=== PATIENT | female | born 1945 | race Caucasian/White ===

== ENCOUNTER 2017-07-09 15:00 | Observation (INO) | payer MEDICARE, SELFPAY ==
[2017-07-09 15:02] VITALS: BP 123/86; BP 135/80; PULSE 84; PULSE 85; RESP 16; RESP 18; TEMP 36.8; O2SAT 95; O2SAT 96; BMI 43.8
--- NOTE | 2017-07-09 15:15 | RAD_ITS ---
STUDY: X-RAY CHEST REASON FOR EXAM: Female, 72 years old. Fatigue. Generalized weakness. TECHNIQUE: Single AP portable view of the chest. COMPARISON: Comparison is made with prior study dated April 30, 2017. FINDINGS: EKG electrodes are seen. Elevation of the right hemidiaphragm. Stable mild increased markings at the right lung base suggestive of scarring. There is no demonstrated pleural abnormality. Normal size heart. Normal mediastinum and estephania. Normal visualized pulmonary arteries. Normal visualized aortic arch and descending thoracic aorta. There are degenerative changes of the visualized thoracic spine. Normal visualized ribs, clavicles, and shoulders. There is no demonstrated abnormality of the visualized soft tissue structures of the upper abdomen. RAD/Chest 1 View (Portable) IMPRESSION: No acute abnormality is seen. Electronically Signed: Huang Lyons MD at 15:37 EST Tel [phone], Service support ,
--- NOTE | 2017-07-09 15:15 | EKG12_ITS ---
Test Reason : FATIGUE Blood Pressure : / mmHG Vent. Rate : 085 BPM Atrial Rate : 085 BPM P-R Int : 194 ms QRS Dur : 068 ms QT Int : 384 ms P-R-T Axes : 081 -06 075 degrees QTc Int : 456 ms Normal sinus rhythm Nonspecific ST abnormality Abnormal ECG Confirmed by JANEEN ELISE ([id number]), utility assembler RA ORELLANA ([id number]) on 07/12/2017 4:43:34 PM Referred By: GORGE Confirmed By:JANEEN ELISE
--- NOTE | 2017-07-09 15:23 | ED.VISSUMM ---
- ER Visit Summary Date of Service: 07/09/17 Chief Complaint: Fatigue and not feeling well for 2 weeks History of Present Illness: The patient is a 72 F male history of insulin-dependent diabetes, stroke, [place] with cardiac stents. Known history of renal insufficiency. Patient states she has been very fatigued and has been feeling well for the last 2 weeks. Worse the last 3-4 days. With increasing nausea. No fever. No chest pain. No abdominal pain. She was admitted in April with chest pain. Physical Examination: Elderly female actively nauseated. Vital signs are stable. Prior to her getting she does not look septic. She does look dehydrated. HEENT exam unremarkable and driving his membranes. Neck nontender. Lungs clear to auscultation bilaterally. Heart regular rhythm no murmur. Rate in the 80s. Abdomen is obese but soft. Nontender nondistended. No organomegaly or masses. No peritoneal signs. No signs of obstruction. Extremities moves all 4. Neurovascular intact. Her neurologically exam, she is awake and alert without focal motor deficits. Skin no rashes but is pale. Test Results: CBC shows a white count 13,800. H&H of 13 and 42. Chemistries unremarkable. Glucose of 289. BUN 24 and creatinine 1.1. Urinalysis positive for nitrites and 2+ bacteria however no white to red cells. A culture was sent. Troponin normal. EKG sinus rhythm rate 85 with chronic changes. Chest x-ray shows no acute process read both by myself and the radiologist. Emergency Department Course and Treatment: Patient be treated IV fluids and IV Zofran. Labs, blood cultures and urinalysis will be obtained. Treatment Plan: Exam no significant change. Patient was treated with a liter normal saline and Zofran. A urine culture will be sent and she will be started on IV Rocephin. I very spoken to the hospitalist Dr. Valdez who will be down to evaluate the patient for admission. Disposition: Admission Impression: Acute dehydration Acute UTI Generalized weakness and fatigue History of stroke, [place], cardiac stents, insulin-dependent diabetes since, renal insufficiency on anticoagulation. This note was generated with [employer] software. It may contain incorrect words, spelling, and punctuation that were not noted in review of the chart prior to signing ED Disposition - Plan for ED Patient: Chief Complaint: Fatigue Referrals: Reggie Jerez MD [Primary Care Provider] -
--- NOTE | 2017-07-09 15:27 | ED.DCSUM_ITS ---
- ER Visit Summary Date of Service: 07/09/17 Chief Complaint: Fatigue and not feeling well for 2 weeks History of Present Illness: The patient is a 72 F male history of insulin- dependent diabetes, stroke, [place] with cardiac stents. Known history of renal insufficiency. Patient states she has been very fatigued and has been feeling well for the last 2 weeks. Worse the last 3-4 days. With increasing nausea. No fever. No chest pain. No abdominal pain. She was admitted in April with chest pain. Physical Examination: Elderly female actively nauseated. Vital signs are stable. Prior to her getting she does not look septic. She does look dehydrated. HEENT exam unremarkable and driving his membranes. Neck nontender. Lungs clear to auscultation bilaterally. Heart regular rhythm no murmur. Rate in the 80s. Abdomen is obese but soft. Nontender nondistended. No organomegaly or masses. No peritoneal signs. No signs of obstruction. Extremities moves all 4. Neurovascular intact. Her neurologically exam, she is awake and alert without focal motor deficits. Skin no rashes but is pale. Test Results: CBC shows a white count 13,800. H&H of 13 and 42. Chemistries unremarkable. Glucose of 289. BUN 24 and creatinine 1.1. Urinalysis positive for nitrites and 2+ bacteria however no white to red cells. A culture was sent. Troponin normal. EKG sinus rhythm rate 85 with chronic changes. Chest x -ray shows no acute process read both by myself and the radiologist. Emergency Department Course and Treatment: Patient be treated IV fluids and IV Zofran. Labs, blood cultures and urinalysis will be obtained. Treatment Plan: Exam no significant change. Patient was treated with a liter normal saline and Zofran. A urine culture will be sent and she will be started on IV Rocephin. I very spoken to the hospitalist Dr. Valdez who will be down to evaluate the patient for admission. Disposition: Admission Impression: Acute dehydration Acute UTI Generalized weakness and fatigue History of stroke, [place], cardiac stents, insulin-dependent diabetes since, renal insufficiency on anticoagulation. This note was generated with [employer] software. It may contain incorrect words, spelling, and punctuation that were not noted in review of the chart prior to signing ED Disposition - Plan for ED Patient: Chief Complaint: Fatigue Referrals: Reggie Jerez MD [Primary Care Provider] -
[2017-07-09 16:29] LABS: Anion Gap 11 (5-15); BUN 24 mg/dL (7-18); BUN/Creat Ratio 20.5 RATIO (10-20); Calcium,Total 8.9 mg/dL (8.5-10.1); Chloride 105 mmol/L (98-107); Creatinine, Serum 1.17 mg/dL (0.55-1.02); EST Glomerular Filtration Rate 48 mL/min (>60); Est Glom Filt Rate - Afr Amer 58 mL/min (>60); Estimated Creatinine Clearance 37.53 ml/min; Glucose 289 mg/dL (70-110); Sodium Level 138 mmol/L (136-145)
[2017-07-09 16:37] LABS: Absolute Lymphocyte Count 0.85 X10^3/ul (0.83-4.51); Absolute Neutrophil Count 12.6 X10^3/uL (2.0-7.7); Basophil# 0.01 X10^3/uL; Basophil% 0.1 % (0-1); Eosinophil# 0.01 X10^3/uL; Eosinophils% 0.1 % (0-5); Hematocrit 42.9 % (37-47); Hemoglobin 13.2 g/dl (12.0-15.0); Lymphocyte # 0.85 X10^3/ul (4.0); Lymphocyte % 6.2 % (19-41); Mean Corp Hgb Conc 30.8 g/gl (32-36); Mean Corpuscular Hgb 24.6 pg (27.0-32.0); Mean Platelet Vol. 10.6 fl (6.2-12.0); Monocyte% 2.2 % (0-10); Neutrophil # 12.59 X10^3/uL (2.7-7.7); Neutrophil % 91.1 % (47-70); Platelet Count 226 K/mm3 (150-450); RBC Distribution Width CV 14.6 % (11.6-14.6); RBC Distribution Width SD 42.7 fl (35.1-43.9); Red Blood Count 5.36 M/mm3 (4.2-5.4); White Blood Count 13.8 K/mm3 (4.4-11.0)
[2017-07-09 16:38] LABS: Mucous, Urine 0 SEEN /hpf (<or=2+); Red Blood Cells-Urine 0 SEEN /hpf (0-5)
[2017-07-09 16:42] LABS: POSITIVE COUNT NO; POSITIVE DIFFERENTIAL NO; POSITIVE MORPHOLOGY NO
[2017-07-09] MEDS: Ondansetron 4 MG/2 ML Vial IV (16:52)
[2017-07-09] MEDS: 0.9% Normal Saline 1,000 ML 1000 ML IV (16:52)
[2017-07-09 16:58] LABS: Color, Urine Straw (Yellow); Glucose, Dipstick Normal (Normal); Ketone-Dipstick Negative (Negative); Leukocyte Esterase-Dipstick 25 /ul (Negative); Nitrite-Dipstick Positive (Negative); Occult Blood-Urine Negative /ul (Negative); Protein-Dipstick Negative (Negative); Urine Bilirubin Dipstick Negative (Negative); Urine Clarity Clear (Clear); Urine Urobilinogen Normal (Normal)
[2017-07-09 17:16] VITALS: BP 129/85; PULSE 80; RESP 14; O2SAT 99
[2017-07-09 17:22] LABS: Squamous Epithelial Cells - UA 0-5 SEEN /hpf (5-10)
[2017-07-09 17:23] LABS: Bacteria 2+ /hpf (None Seen); White Blood Cells 0-5 SEEN /hpf (0-5)
--- NOTE | 2017-07-09 17:59 | PCM.HP.STD ---
Problem List (1) UTI (urinary tract infection) Status: Acute (2) DM2 (diabetes mellitus, type 2) Status: Chronic Qualifiers: Diabetes mellitus complication status: with kidney complications Diabetes mellitus complication detail: with chronic kidney disease Chronic kidney disease stage: stage 3 (moderate) (3) Essential (primary) hypertension Status: Chronic (4) CAD (coronary artery disease) Status: Chronic (5) Carotid artery disorder Status: Chronic (6) Dyslipidemia Status: Chronic (7) Obesity Status: Chronic Qualifiers: Body mass index: BMI 40.0-44.9 (8) CKD (chronic kidney disease) Status: Chronic Qualifiers: Chronic kidney disease stage: stage 3 (moderate) Qualified Code(s): N18.3 - Chronic kidney disease, stage 3 (moderate) History of Present Illness Date of Admission: 07/09/17 Chief Complaint: Generalized malaise The patient is a 72 year old F past medical history significant for diabetes mellitus type 2, CAD who presented with progressive generalized malaise. Patient's symptoms have been ongoing for the past couple of days. She apparently has history of recurrent UTI and family were concerned about another recurrence. She did complain of fever and chills. She also did complain of lower abdominal pain. She apparently does self-catheterization at home. Presented to the ED found to have leukocytosis, patient to positive nitrites and leukocyte esterase in her urine. An assessment of acute cystitis was made started on Rocephin and admitted to regular nursing floor. Past Medical History Past Medical History (Chronic Problems): Chronic Problems DM2 (diabetes mellitus, type 2) (Chronic) Essential (primary) hypertension (Chronic) CAD (coronary artery disease) (Chronic) Carotid artery disorder (Chronic) Dyslipidemia (Chronic) Obesity (Chronic) CKD (chronic kidney disease) (Chronic) Allergies donepezil [From Aricept] Adverse Reaction (Verified 07/09/17 15:02) Other meperidine [From Demerol] Adverse Reaction (Verified 07/09/17 15:02) Other Home Medications: Ambulatory Orders Medication Instructions Recorded Aspirin E.C. [Ecotrin] 81 mg PO DAILY@0800 04/30/17 BuPROPion [Wellbutrin] 75 mg PO BID 04/30/17 Carvedilol [Coreg] 12.5 mg PO BID 04/30/17 Clopidogrel Bisulfate [Clopidogrel] 75 mg PO DAILY 04/30/17 Escitalopram Oxalate [Lexapro] 20 mg PO DAILY 04/30/17 Insulin Detemir [Levemir] 24 unit SQ BREAKFAST 04/30/17 Insulin Detemir [Levemir] 60 unit SQ QHS 04/30/17 Insulin Lispro [Humalog] 30 unit SC DINNER 04/30/17 Insulin Lispro [Humalog] 30 unit SC LUNCH 04/30/17 Insulin Lispro [Humalog] 32 unit SC BREAKFAST 04/30/17 Lisinopril [Zestril] 5 mg PO DAILY 04/30/17 Melatonin 3 mg PO QHS 04/30/17 Oxybutynin [Ditropan] 5 mg PO BID 04/30/17 Pantoprazole Sodium [Protonix] 40 mg PO DAILY 04/30/17 Pravastatin [Pravachol] 40 mg PO QHS 04/30/17 Pregabalin [Lyrica] 75 mg PO QHS 04/30/17 Terazosin HCl 2 mg PO QHS 04/30/17 Trazodone HCl 50 mg PO QHS 04/30/17 Smoking Status: Former smoker - *Family History Maternal History Items: Heart Disease Review of Systems Constitutional: Reports: Anorexia, Chills, Fever, Malaise Eyes: Denies: Blurred vision HEENT: Denies: Head Aches, Sinus Congestion, Sinus Drainage Cardiovascular: Denies: Chest Pain, Orthopnea, Palpitations, Paroxysmal Noc. Dyspnea Respiratory: Denies: Cough, Shortness of breath at rest, Shortness of breath upon exertion, Sputum production Gastrointestinal: Reports: Abdominal Pain Genitourinary: Denies: Hematuria, Urgency Gynecological: Denies: Vaginal discharge Musculoskeletal: Denies: Joint Pain, Joint Tenderness Skin: Reports: Dryness Neurological: Denies: Balance problems Psychiatric: Denies: Anxiety Hematologic/ Lymphatic: Denies: Adenopathy VTE Information - Inpt Only VTE Present on Admission: No VTE Mechan Device Prophylaxis: Knee High MARCUS Hose VTE Pharm Prophylaxis ordered?: Yes Patient Problems: Active and Suspected Problems UTI (urinary tract infection) (Acute) Objective: GENERAL: Appears ill looking HEENT: Clear conjunctiva, NECK; supple, normal thyroid, CHEST: Diminished to auscultation bilaterally, HEART: Regular S1 S2, systolic murmurs ABDOMEN: soft, normoactive bowel sounds, RECTAL: deferred EXTREMITIES: No edema, no clubbing, MUSIC BOX MECHANIC: Awake, no lateralizing signs. SKIN: No rash - Physical Exam Vital Signs Temp Pulse Resp BP Pulse Ox 98.3 F 80 14 129/85 H 99 07/09/17 15:02 07/09/17 17:16 07/09/17 17:16 07/09/17 17:16 07/09/17 17:16 Oxygen Delivery Method Room Air Weight: 115.9 kg Body Mass Index (BMI) 43.8 Laboratory Tests Past 24 Hrs 07/09/17 07/09/17 07/09/17 15:55 15:55 16:25 WBC 13.8 H RBC 5.36 Hgb 13.2 Hct 42.9 MCV 80.0 L MCH 24.6 L MCHC 30.8 L RDW 14.6 RDW Differential 42.7 Plt Count 226 MPV 10.6 Immature Gran % (Auto) 0.300 Neut % (Auto) 91.1 H Lymph % (Auto) 6.2 L [place] % (Auto) 2.2 Eos % (Auto) 0.1 Baso % (Auto) 0.1 Absolute Neuts (auto) 12.6 H Absolute Lymphs (auto) 0.85 Total Counted Not Reportable Sodium 138 Potassium 5.0 Chloride 105 Carbon Dioxide 22.0 Anion Gap 11 BUN 24 H Creatinine 1.17 H Estim Creat Clear Calc 37.53 Est GFR (MDRD) Af Amer 58 L Est GFR (MDRD) Non-Af 48 L BUN/Creatinine Ratio 20.5 H Glucose 289 H Calcium 8.9 Troponin I 0.06 Urine Color Straw Urine Clarity Clear Urine pH 6.0 Ur Specific [place] 1.010 Urine Protein Negative Urine Glucose (UA) Normal Urine Ketones Negative Urine Occult Blood Negative Urine Nitrite Positive H Urine Bilirubin Negative Urine Urobilinogen Normal Ur Leukocyte Esterase 25 H Urine RBC 0 SEEN Urine WBC 0-5 SEEN Ur Squamous Epith Cells 0-5 SEEN Urine Bacteria 2+ Urine Mucus 0 SEEN Assessment/Plan Active and Suspected Problems UTI (urinary tract infection) (Acute) Patient is a 72-year-old lady with multiple comorbidities presented with progressive generalized weakness and subjective fever and chills. Her assessment on admission was consistent with acute cystitis admitted to regular nursing floor for further management 1. Acute cystitis: Patient has history of recurrent cystitis and apparently does self-catheterization it is thought patient self-catheterization directly contributed to patient's acute cystitis. Admitted to regular nursing floor started on Rocephin culture sent with plans to adjust antibiotics based on the culture result 2. Hypertension-blood pressure controlled, home medications continued with dose adjustment as needed 3. Dyslipidemia-patient is on statin therapy, continued at home dose 4. CAD status post previous stent placement 5. 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 Chronic kidney disease stage III 7. BMI of 43.9 8. Carotid artery disease patient is scheduled to follow-up with vascular surgery in [place] 9. DVT prophylaxis Lovenox Code Visit Inpatient E&M: 57015 Subs Hosp L3
[2017-07-09] MEDS: Ceftriaxone 1 GM/50 ML BAG IV (18:12)
[2017-07-09 18:45] VITALS: BMI 43.9
[2017-07-09 18:46] VITALS: BP 130/80; PULSE 80; RESP 14; O2SAT 99
[2017-07-09 19:07] VITALS: BMI 44.1
[2017-07-09 19:09] VITALS: BP 122/89; PULSE 102; RESP 18; TEMP 38.2; O2SAT 94
[2017-07-09 20:35] VITALS: BP 125/50; PULSE 102; RESP 18; TEMP 38.3; O2SAT 94
[2017-07-09] MEDS: oxyCODONE 5 MG Tablet PO (20:47)
[2017-07-09] MEDS: Acetaminophen 325 MG Tablet 650 MG PO (20:47)
[2017-07-09] MEDS: traZODone 50 MG Tablet PO (20:52)
[2017-07-09] MEDS: Doxazosin 1 MG Tablet 2 MG PO (20:52)
[2017-07-09] MEDS: Carvedilol 12.5 MG Tablet PO (20:52)
[2017-07-09] MEDS: Oxybutynin 5 MG Tablet PO (20:52)
[2017-07-09] MEDS: Pravastatin 40 MG Tablet PO (20:52)
[2017-07-09] MEDS: MELATONIN 3 MG TABLET PO (20:53)
[2017-07-09] MEDS: Pregabalin 75 MG Capsule PO (20:56)
[2017-07-09 21:06] LABS: Bedside Glucose 303 mg/dL (70-110)
[2017-07-09] MEDS: 0.9% Normal Saline 1,000 ML 100 ML IV (21:12)
[2017-07-09 23:00] VITALS: BP 118/70; PULSE 88; RESP 18; TEMP 37.6; O2SAT 93
[2017-07-10] MEDS: 0.9% Normal Saline 1,000 ML 100 ML IV ×2 (05:41→17:39)
[2017-07-10 05:42] VITALS: BP 109/70; PULSE 68; RESP 18; TEMP 36.9; O2SAT 99
[2017-07-10 07:26] LABS: Hematocrit 34.8 % (37-47); Hemoglobin 10.7 g/dl (12.0-15.0); Mean Corp Hgb Conc 30.7 g/gl (32-36); Mean Corpuscular Hgb 24.9 pg (27.0-32.0); Mean Corpuscular Volume 80.9 fL (81-99); Mean Platelet Vol. 10.7 fl (6.2-12.0); Platelet Count 190 K/mm3 (150-450); RBC Distribution Width SD 43.6 fl (35.1-43.9); Scan Indicated on CBC? Y/N NO; White Blood Count 9.4 K/mm3 (4.4-11.0)
[2017-07-10 07:55] LABS: Anion Gap 9 (5-15); BUN 26 mg/dL (7-18); BUN/Creat Ratio 21.5 RATIO (10-20); Calcium,Total 7.9 mg/dL (8.5-10.1); Chloride 106 mmol/L (98-107); Creatinine, Serum 1.21 mg/dL (0.55-1.02); EST Glomerular Filtration Rate 46 mL/min (>60); Est Glom Filt Rate - Afr Amer 56 mL/min (>60); Estimated Creatinine Clearance 36.29 ml/min; Glucose 272 mg/dL (70-110); Magnesium 1.5 mg/dL (1.8-2.4); Potassium 4.2 mmol/L (3.5-5.1); Sodium Level 138 mmol/L (136-145)
[2017-07-10 08:18] VITALS: BP 102/47; PULSE 69; RESP 18; TEMP 36.7; O2SAT 94
[2017-07-10 08:20] VITALS: O2SAT 84
--- NOTE | 2017-07-10 08:34 | NURSING ---
DUPLICATE URINE CULTURE ORDERED UPON ADMISSION CANCELLED AT THIS TIME. FIRST ORDER FOR URINE CULTURE IN PROGRESS.
[2017-07-10 08:46] LABS: Bedside Glucose 269 mg/dL (70-110)
--- NOTE | 2017-07-10 08:59 | PN_ITS ---
Patient Problems: Active and Suspected Problems UTI (urinary tract infection) (Acute) Subjective: Patient seen appears quite lethargic this a.m. she however denies fever no chills no nausea no vomiting. Cultures pending Objective: GENERAL: Appears ill looking HEENT: Clear conjunctiva, NECK; supple, normal thyroid, CHEST: Diminished to auscultation bilaterally, HEART: Regular S1 S2, systolic murmurs ABDOMEN: soft, normoactive bowel sounds, RECTAL: deferred EXTREMITIES: No edema, no clubbing, ACCOUNTS COLLECTOR: Awake, no lateralizing signs. SKIN: No rash Vitals/I&O's: Vital Signs Temp Pulse Resp BP Pulse Ox 98.1 F 69 18 102/47 L 84 07/10/17 08:18 07/10/17 08:18 07/10/17 08:18 07/10/17 08:18 07/10/17 08:20 Oxygen Flow Rate 2 Oxygen Delivery Method Nasal Cannula Weight: 116.8 kg Body Mass Index (BMI) 44.1 Intake and Output for Last 24 Hours 07/08/17 07/09/17 07/10/17 23:59 23:59 23:59 Intake Total 1033 / 1033 Output Total 900 / 900 Balance 133 / 133 Laboratory Results 07/09/17 20:59: POC Glucose 303 H 07/10/17 06:31: Sodium 138, Potassium 4.2, Chloride 106, Carbon Dioxide 23.0, Anion Gap 9, BUN 26 H, Creatinine 1.21 H, Estim Creat Clear Calc 36.29, Est GFR (MDRD) Af Amer 56 L, Est GFR (MDRD) Non-Af 46 L, BUN/Creatinine Ratio 21.5 H, Glucose 272 H, Calcium 7.9 L, Magnesium 1.5 L 07/10/17 06:31: WBC 9.4, RBC 4.30, Hgb 10.7 L, Hct 34.8 L, MCV 80.9 L, MCH 24.9 L, MCHC 30.7 L, RDW 15.0 H, RDW Differential 43.6, Plt Count 190, MPV 10.7 07/10/17 08:40: POC Glucose 269 H Current Medications Acetaminophen (Tylenol) 650 mg PO Q6H PRN PRN PRN Reason: Mild Pain (scale 0-3)/T>100.7 Last Admin: 07/09/17 20:47 Dose: 650 mg Al Hydroxide/Mg Hydroxide (Mylanta Ii) 30 ml PO Q6H PRN PRN PRN Reason: Gastric Burning Aspirin (Ecotrin) 81 mg PO DAILY@0800 [facility] Bupropion HCl (Wellbutrin) 75 mg PO BID [facility] Last Admin: 07/09/17 20:52 Dose: 75 mg Carvedilol (Coreg) 12.5 mg PO BID [facility] Last Admin: 07/09/17 20:52 Dose: 12.5 mg Clopidogrel Bisulfate (Plavix) 75 mg PO DAILY [facility] Dextrose (D50w Syringe) 0 gm IV X1 PRN; Protocol PRN Reason: Hypoglycemia Docusate Sodium (Colace) 200 mg PO BID PRN PRN PRN Reason: Constipation Doxazosin Mesylate (Cardura) 2 mg PO QHS [facility] Last Admin: 07/09/17 20:52 Dose: 2 mg Enoxaparin Sodium (Lovenox) 40 mg SC DAILY@1000 [facility] Escitalopram Oxalate (Lexapro) 20 mg PO DAILY [facility] Glucagon () 1 mg IM .X1 PRN PRN Reason: Hypoglycemia Ceftriaxone Sodium (Rocephin) 1 gm in 50 mls @ 100 mls/hr IV Q24 [facility] Sodium Chloride () 1,000 mls @ 100 mls/hr IV .Q10H [facility] Last Admin: 07/10/17 05:41 Dose: 100 mls/hr Insulin Aspart (Novolog Flexpen (Bkc)) 0 units SC ACHS [facility] PRN Reason: Protocol Last Admin: 07/09/17 21:04 Dose: 9 u Insulin Aspart (Novolog Flexpen (Bkc)) 32 units SC BREAKFAST [facility] Insulin Aspart (Novolog Flexpen (Bkc)) 30 units SC LUNCH [facility] Insulin Aspart (Novolog Flexpen (Bkc)) 30 units SC DINNER [facility] Insulin Detemir (Levemir (Bkc)) 60 units SC QHS [facility] Last Admin: 07/09/17 21:03 Dose: 60 u Insulin Detemir (Levemir (Bkc)) 24 units SC BREAKFAST [facility] Lisinopril (Zestril) 5 mg PO DAILY [facility] Magnesium Hydroxide (Milk Of Magnesia) 30 ml PO DAILY PRN PRN PRN Reason: Constipation Melatonin (Melatonin) 3 mg PO QHS [facility] Last Admin: 07/09/17 20:53 Dose: 3 mg Ondansetron HCl (Zofran) 4 mg IV Q8H PRN PRN PRN Reason: Nausea Oxybutynin Chloride (Ditropan) 5 mg PO BID [facility] Last Admin: 07/09/17 20:52 Dose: 5 mg Oxycodone HCl (Oxyir) 5 mg PO Q4H PRN PRN PRN Reason: Moderate Pain (pain scale 4-5) Last Admin: 07/09/17 20:47 Dose: 5 mg Pantoprazole Sodium (Protonix) 40 mg PO DAILY [facility] Pravastatin Sodium (Pravachol) 40 mg PO QHS [facility] Last Admin: 07/09/17 20:52 Dose: 40 mg Pregabalin (Lyrica) 75 mg PO QHS [facility] Last Admin: 07/09/17 20:56 Dose: 75 mg Trazodone HCl (Desyrel) 50 mg PO QHS [facility] Last Admin: 07/09/17 20:52 Dose: 50 mg Assessment/Plan Active and Suspected Problems UTI (urinary tract infection) (Acute) Patient is a 72-year-old lady with multiple comorbidities presented with progressive generalized weakness and subjective fever and chills. Her assessment on admission was consistent with acute cystitis admitted to regular nursing floor for further management 1. Acute cystitis: Patient has history of recurrent cystitis and apparently does self-catheterization it is thought patient self-catheterization directly contributed to patient's acute cystitis. Admitted to regular nursing floor started on Rocephin culture sent with plans to adjust antibiotics based on the culture result 2. Hypertension-blood pressure controlled, home medications continued with dose adjustment as needed 3. Dyslipidemia-patient is on statin therapy, continued at home dose 4. CAD status post previous stent placement 5. 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 Chronic kidney disease stage III 7. BMI of 43.9 8. Carotid artery disease patient is scheduled to follow-up with vascular surgery in [place] 9. DVT prophylaxis Lovenox 10. Hypomagnesemia corrected per protocol
[2017-07-10] MEDS: Escitalopram Oxalate 20 MG Tablet PO (10:30)
[2017-07-10] MEDS: Carvedilol 12.5 MG Tablet PO ×2 (10:30→22:20)
[2017-07-10] MEDS: Clopidogrel Bisulfate 75 MG Tablet PO (10:30)
[2017-07-10] MEDS: Enoxaparin 40 MG/0.4 ML Syringe SC (10:30)
[2017-07-10] MEDS: Oxybutynin 5 MG Tablet PO ×2 (10:30→22:21)
[2017-07-10] MEDS: Pantoprazole Sodium 40 MG Tablet PO (10:30)
[2017-07-10] MEDS: Lisinopril 5 MG Tablet PO (10:30)
[2017-07-10] MEDS: Aspirin E.C. 81 MG Tablet PO (10:31)
[2017-07-10] MEDS: Ceftriaxone 1 GM/50 ML BAG IV (10:40)
--- NOTE | 2017-07-10 10:42 | NURSING ---
breakfast tray left at patient's bedside- pt was sleeping when this RN entered room. Awakened and AM meds given, including insulin. Pt denies further needs.
[2017-07-10 11:22] VITALS: O2SAT 97
[2017-07-10 12:06] LABS: Bedside Glucose 260 mg/dL (70-110)
[2017-07-10 14:15] VITALS: BP 141/63; PULSE 69; RESP 18; TEMP 36.8; O2SAT 94
--- NOTE | 2017-07-10 14:25 | CM.UR ---
Met face to face with patient. No family present. Introduced myself and explained my role. Patient denies anything at this time. Reinforced housing case manager available should any needs arise. Verb understanding. Nay Ambrose RN, [facility].
[2017-07-10 17:21] LABS: Bedside Glucose 80 mg/dL (70-110)
[2017-07-10 20:05] VITALS: BP 131/42; PULSE 68; RESP 16; TEMP 37.1; O2SAT 95
[2017-07-10 21:55] LABS: Bedside Glucose 148 mg/dL (70-110)
[2017-07-10] MEDS: traZODone 50 MG Tablet PO (22:19)
[2017-07-10] MEDS: Doxazosin 1 MG Tablet 2 MG PO (22:20)
[2017-07-10] MEDS: Pregabalin 75 MG Capsule PO (22:21)
[2017-07-10] MEDS: MELATONIN 3 MG TABLET PO (22:21)
[2017-07-10] MEDS: Pravastatin 40 MG Tablet PO (22:22)
[2017-07-10] MEDS: oxyCODONE 5 MG Tablet PO (22:23)
[2017-07-10] MEDS: Acetaminophen 325 MG Tablet 650 MG PO (22:24)
[2017-07-11 05:45] VITALS: BP 147/58; PULSE 61; RESP 16; TEMP 36.6; O2SAT 97
[2017-07-11] MEDS: 0.9% Normal Saline 1,000 ML 100 ML IV ×3 (05:54→23:53)
[2017-07-11 06:40] LABS: Hematocrit 35.3 % (37-47); Hemoglobin 10.5 g/dl (12.0-15.0); Mean Corp Hgb Conc 29.7 g/gl (32-36); Mean Corpuscular Hgb 24.4 pg (27.0-32.0); Mean Corpuscular Volume 81.9 fL (81-99); Mean Platelet Vol. 10.6 fl (6.2-12.0); Platelet Count 183 K/mm3 (150-450); Red Blood Count 4.31 M/mm3 (4.2-5.4); White Blood Count 8.5 K/mm3 (4.4-11.0)
[2017-07-11 06:58] LABS: Scan Indicated on CBC? Y/N NO
[2017-07-11 07:30] LABS: Anion Gap 7 (5-15); BUN 23 mg/dL (7-18); BUN/Creat Ratio 21.7 RATIO (10-20); Calcium,Total 7.6 mg/dL (8.5-10.1); Chloride 110 mmol/L (98-107); Creatinine, Serum 1.06 mg/dL (0.55-1.02); EST Glomerular Filtration Rate 54 mL/min (>60); Est Glom Filt Rate - Afr Amer 65 mL/min (>60); Estimated Creatinine Clearance 41.43 ml/min; Glucose 170 mg/dL (70-110); Sodium Level 140 mmol/L (136-145)
[2017-07-11 08:12] VITALS: O2SAT 95
[2017-07-11 08:40] VITALS: BP 137/51; PULSE 61; RESP 16; TEMP 36.9; O2SAT 94
[2017-07-11 08:56] LABS: Bedside Glucose 167 mg/dL (70-110)
--- NOTE | 2017-07-11 09:15 | PN_ITS ---
Patient Problems: Active and Suspected Problems UTI (urinary tract infection) (Acute) Subjective: Since seen, had hypoglycemic episode the evening prior to patient insulin regimen adjusted. Urine culture so far positive for GNR lactose tin pourer: Final identification and sensitivities pending. Objective: GENERAL: Appears ill looking HEENT: Clear conjunctiva, NECK; supple, normal thyroid, CHEST: Diminished to auscultation bilaterally, HEART: Regular S1 S2, systolic murmurs ABDOMEN: soft, normoactive bowel sounds, RECTAL: deferred EXTREMITIES: No edema, no clubbing, TECHNICAL AIDE: Awake, no lateralizing signs. SKIN: No rash Vitals/I&O's: Vital Signs Temp Pulse Resp BP Pulse Ox 98.5 F 61 16 137/51 H 94 07/11/17 08:40 07/11/17 08:40 07/11/17 08:40 07/11/17 08:40 07/11/17 08:40 Oxygen Flow Rate 2 Oxygen Delivery Method Room Air Weight: 116.8 kg Body Mass Index (BMI) 44.1 Intake and Output for Last 24 Hours 07/09/17 07/10/17 07/11/17 23:59 23:59 23:59 Intake Total 1541 / 1541 1290 / 1290 Output Total 1400 / 1400 850 / 850 Balance 141 / 141 440 / 440 Laboratory Results 07/10/17 12:01: POC Glucose 260 H 07/10/17 16:59: POC Glucose 80 07/10/17 21:48: POC Glucose 148 H 07/11/17 05:41: Sodium 140, Potassium 4.0, Chloride 110 H, Carbon Dioxide 23.0, Anion Gap 7, BUN 23 H, Creatinine 1.06 H, Estim Creat Clear Calc 41.43, Est GFR (MDRD) Af Amer 65, Est GFR (MDRD) Non-Af 54 L, BUN/Creatinine Ratio 21.7 H, Glucose 170 H, Calcium 7.6 L 07/11/17 05:41: WBC 8.5, RBC 4.31, Hgb 10.5 L, Hct 35.3 L, MCV 81.9, MCH 24.4 L , MCHC 29.7 L, RDW 15.0 H, RDW Differential 45.0 H, Plt Count 183, MPV 10.6 07/11/17 08:45: POC Glucose 167 H Current Medications Acetaminophen (Tylenol) 650 mg PO Q6H PRN PRN PRN Reason: Mild Pain (scale 0-3)/T>100.7 Last Admin: 07/10/17 22:24 Dose: 650 mg Al Hydroxide/Mg Hydroxide (Mylanta Ii) 30 ml PO Q6H PRN PRN PRN Reason: Gastric Burning Aspirin (Ecotrin) 81 mg PO DAILY@0800 [facility] Last Admin: 07/10/17 10:31 Dose: 81 mg Bupropion HCl (Wellbutrin) 75 mg PO BID [facility] Last Admin: 07/10/17 22:22 Dose: 75 mg Carvedilol (Coreg) 12.5 mg PO BID [facility] Last Admin: 07/10/17 22:20 Dose: 12.5 mg Clopidogrel Bisulfate (Plavix) 75 mg PO DAILY [facility] Last Admin: 07/10/17 10:30 Dose: 75 mg Dextrose (D50w Syringe) 0 gm IV X1 PRN; Protocol PRN Reason: Hypoglycemia Docusate Sodium (Colace) 200 mg PO BID PRN PRN PRN Reason: Constipation Doxazosin Mesylate (Cardura) 2 mg PO QHS [facility] Last Admin: 07/10/17 22:20 Dose: 2 mg Enoxaparin Sodium (Lovenox) 40 mg SC DAILY@1000 [facility] Last Admin: 07/10/17 10:30 Dose: 40 mg Escitalopram Oxalate (Lexapro) 20 mg PO DAILY [facility] Last Admin: 07/10/17 10:30 Dose: 20 mg Glucagon () 1 mg IM .X1 PRN PRN Reason: Hypoglycemia Ceftriaxone Sodium (Rocephin) 1 gm in 50 mls @ 100 mls/hr IV Q24 [facility] Last Admin: 07/10/17 10:40 Dose: 100 mls/hr Sodium Chloride () 1,000 mls @ 100 mls/hr IV .Q10H [facility] Last Admin: 07/11/17 05:54 Dose: 100 mls/hr Insulin Aspart (Novolog Flexpen (Bkc)) 0 units SC ACHS [facility] PRN Reason: Protocol Last Admin: 07/10/17 22:22 Dose: Not Given Insulin Aspart (Novolog Flexpen (Bkc)) 20 units SC BREAKFAST [facility] Insulin Aspart (Novolog Flexpen (Bkc)) 20 units SC DINNER [facility] Insulin Aspart (Novolog Flexpen (Bkc)) 20 units SC LUNCH [facility] Insulin Detemir (Levemir (Bkc)) 30 units SC BREAKFAST [facility] Insulin Detemir (Levemir (Bkc)) 30 units SC QHS [facility] Lisinopril (Zestril) 5 mg PO DAILY [facility] Last Admin: 07/10/17 10:30 Dose: 5 mg Magnesium Hydroxide (Milk Of Magnesia) 30 ml PO DAILY PRN PRN PRN Reason: Constipation Melatonin (Melatonin) 3 mg PO QHS [facility] Last Admin: 07/10/17 22:21 Dose: 3 mg Ondansetron HCl (Zofran) 4 mg IV Q8H PRN PRN PRN Reason: Nausea Oxybutynin Chloride (Ditropan) 5 mg PO BID [facility] Last Admin: 07/10/17 22:21 Dose: 5 mg Oxycodone HCl (Oxyir) 5 mg PO Q4H PRN PRN PRN Reason: Moderate Pain (pain scale 4-5) Last Admin: 07/10/17 22:23 Dose: 5 mg Pantoprazole Sodium (Protonix) 40 mg PO DAILY [facility] Last Admin: 07/10/17 10:30 Dose: 40 mg Pravastatin Sodium (Pravachol) 40 mg PO QHS [facility] Last Admin: 07/10/17 22:22 Dose: 40 mg Pregabalin (Lyrica) 75 mg PO QHS [facility] Last Admin: 07/10/17 22:21 Dose: 75 mg Trazodone HCl (Desyrel) 50 mg PO QHS [facility] Last Admin: 07/10/17 22:19 Dose: 50 mg Assessment/Plan Active and Suspected Problems UTI (urinary tract infection) (Acute) Patient is a 72-year-old lady with multiple comorbidities presented with progressive generalized weakness and subjective fever and chills. Her assessment on admission was consistent with acute cystitis admitted to regular nursing floor for further management 1. Acute cystitis GNR lactose tin pourer: Patient has history of recurrent cystitis and apparently does self-catheterization it is thought patient self- catheterization directly contributed to patient's acute cystitis. Admitted to regular nursing floor started on Rocephin culture sent with plans to adjust antibiotics based on the culture result 2. Hypertension-blood pressure controlled, home medications continued with dose adjustment as needed 3. Dyslipidemia-patient is on statin therapy, continued at home dose 4. CAD status post previous stent placement 5. 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 Chronic kidney disease stage III 7. BMI of 43.9 8. Carotid artery disease patient is scheduled to follow-up with vascular surgery in [place] 9. DVT prophylaxis Lovenox 10. Hypomagnesemia corrected per protocol Code Visit Inpatient E&M: 68647 Subs Hosp L2
[2017-07-11] MEDS: Escitalopram Oxalate 20 MG Tablet PO (11:29)
[2017-07-11] MEDS: Carvedilol 12.5 MG Tablet PO ×2 (11:29→21:43)
[2017-07-11] MEDS: Oxybutynin 5 MG Tablet PO ×2 (11:29→21:43)
[2017-07-11] MEDS: Enoxaparin 40 MG/0.4 ML Syringe SC (11:29)
[2017-07-11] MEDS: Aspirin E.C. 81 MG Tablet PO (11:29)
[2017-07-11] MEDS: Pantoprazole Sodium 40 MG Tablet PO (11:30)
[2017-07-11] MEDS: Ceftriaxone 1 GM/50 ML BAG IV (11:30)
[2017-07-11] MEDS: Clopidogrel Bisulfate 75 MG Tablet PO (11:30)
[2017-07-11] MEDS: Lisinopril 5 MG Tablet PO (11:31)
[2017-07-11 13:21] LABS: Bedside Glucose 235 mg/dL (70-110)
[2017-07-11 13:49] VITALS: BP 137/56; PULSE 60; RESP 18; TEMP 36.6; O2SAT 100
[2017-07-11 16:46] LABS: Bedside Glucose 170 mg/dL (70-110)
[2017-07-11 20:23] VITALS: BP 165/45; PULSE 57; RESP 18; TEMP 36.9; O2SAT 98
[2017-07-11] MEDS: Acetaminophen 325 MG Tablet 650 MG PO (21:41)
[2017-07-11] MEDS: oxyCODONE 5 MG Tablet PO (21:41)
[2017-07-11] MEDS: Pregabalin 75 MG Capsule PO (21:41)
[2017-07-11] MEDS: Doxazosin 1 MG Tablet 2 MG PO (21:43)
[2017-07-11] MEDS: traZODone 50 MG Tablet PO (21:43)
[2017-07-11] MEDS: Pravastatin 40 MG Tablet PO (21:44)
[2017-07-11] MEDS: MELATONIN 3 MG TABLET PO (21:44)
[2017-07-11 21:56] LABS: Bedside Glucose 157 mg/dL (70-110)
[2017-07-12 05:48] VITALS: BP 133/44; PULSE 55; RESP 16; TEMP 36.5; O2SAT 97
[2017-07-12] MEDS: oxyCODONE 5 MG Tablet PO (05:57)
[2017-07-12] MEDS: Acetaminophen 325 MG Tablet 650 MG PO (05:57)
[2017-07-12 07:57] VITALS: O2SAT 95
[2017-07-12] MEDS: 0.9% Normal Saline 1,000 ML 100 ML IV (09:38)
[2017-07-12] MEDS: Aspirin E.C. 81 MG Tablet PO (09:39)
[2017-07-12 09:46] LABS: Bedside Glucose 178 mg/dL (70-110)
[2017-07-12] MEDS: Escitalopram Oxalate 20 MG Tablet PO (09:48)
[2017-07-12] MEDS: Pantoprazole Sodium 40 MG Tablet PO (09:48)
[2017-07-12] MEDS: Lisinopril 5 MG Tablet PO (09:48)
[2017-07-12] MEDS: Clopidogrel Bisulfate 75 MG Tablet PO (09:48)
[2017-07-12] MEDS: Oxybutynin 5 MG Tablet PO (09:49)
[2017-07-12] MEDS: Enoxaparin 40 MG/0.4 ML Syringe SC (09:49)
[2017-07-12] MEDS: Carvedilol 12.5 MG Tablet PO (09:49)
[2017-07-12 09:56] LABS: Anion Gap 9 (5-15); BUN 21 mg/dL (7-18); BUN/Creat Ratio 22.4 RATIO (10-20); Calcium,Total 7.9 mg/dL (8.5-10.1); Chloride 108 mmol/L (98-107); Creatinine, Serum 0.94 mg/dL (0.55-1.02); EST Glomerular Filtration Rate 62 mL/min (>60); Est Glom Filt Rate - Afr Amer 75 mL/min (>60); Estimated Creatinine Clearance 46.71 ml/min; Glucose 136 mg/dL (70-110); Potassium 4.5 mmol/L (3.5-5.1); Sodium Level 141 mmol/L (136-145)
[2017-07-12 09:58] VITALS: BP 155/47; PULSE 58; RESP 18; TEMP 36.7; O2SAT 98
[2017-07-12 09:59] VITALS: PULSE 58
[2017-07-12] MEDS: Ceftriaxone 1 GM/50 ML BAG IV (10:05)
[2017-07-12 12:16] LABS: Bedside Glucose 240 mg/dL (70-110)
--- NOTE | 2017-07-12 12:28 | PN_ITS ---
Patient Problems: Active and Suspected Problems UTI (urinary tract infection) (Acute) Subjective: Feels good. Denies any complaints. Patient states that she chronically has her daughter self catheterize her 2-3 times per day. States that they use new catheters each time and do not reuse them. Vitals/I&O's: Vital Signs Temp Pulse Resp BP Pulse Ox 36.7 C 58 L 18 155/47 H 98 07/12/17 09:58 07/12/17 09:59 07/12/17 09:58 07/12/17 09:58 07/12/17 09:58 Oxygen Flow Rate 2 Oxygen Delivery Method Room Air Weight: 116.8 kg Body Mass Index (BMI) 44.1 Intake and Output for Last 24 Hours 07/10/17 07/11/17 07/12/17 23:59 23:59 23:59 Intake Total 1541 / 1541 3444 / 3444 1790 / 1790 Output Total 1400 / 1400 2100 / 2100 1450 / 1450 Balance 141 / 141 1344 / 1344 340 / 340 General: Alert, Cooperative, Well developed, Well nourished HEENT: Atraumatic, Normocephalic Laboratory Results 07/11/17 11:37: POC Glucose 235 H 07/11/17 16:38: POC Glucose 170 H 07/11/17 21:39: POC Glucose 157 H 07/12/17 05:25: Sodium 141, Potassium 4.5, Chloride 108 H, Carbon Dioxide 24.0, Anion Gap 9, BUN 21 H, Creatinine 0.94, Estim Creat Clear Calc 46.71, Est GFR ( MDRD) Af Amer 75, Est GFR (MDRD) Non-Af 62, BUN/Creatinine Ratio 22.4 H, Glucose 136 H, Calcium 7.9 L 07/12/17 09:42: POC Glucose 178 H 07/12/17 12:06: POC Glucose 240 H Current Medications Acetaminophen (Tylenol) 650 mg PO Q6H PRN PRN PRN Reason: Mild Pain (scale 0-3)/T>100.7 Last Admin: 07/12/17 05:57 Dose: 650 mg Al Hydroxide/Mg Hydroxide (Mylanta Ii) 30 ml PO Q6H PRN PRN PRN Reason: Gastric Burning Aspirin (Ecotrin) 81 mg PO DAILY@0800 [facility] Last Admin: 07/12/17 09:39 Dose: 81 mg Bupropion HCl (Wellbutrin) 75 mg PO BID [facility] Last Admin: 07/12/17 09:48 Dose: 75 mg Carvedilol (Coreg) 12.5 mg PO BID [facility] Last Admin: 07/12/17 09:49 Dose: 12.5 mg Clopidogrel Bisulfate (Plavix) 75 mg PO DAILY [facility] Last Admin: 07/12/17 09:48 Dose: 75 mg Dextrose (D50w Syringe) 0 gm IV X1 PRN; Protocol PRN Reason: Hypoglycemia Docusate Sodium (Colace) 200 mg PO BID PRN PRN PRN Reason: Constipation Doxazosin Mesylate (Cardura) 2 mg PO QHS [facility] Last Admin: 07/11/17 21:43 Dose: 2 mg Enoxaparin Sodium (Lovenox) 40 mg SC DAILY@1000 [facility] Last Admin: 07/12/17 09:49 Dose: 40 mg Escitalopram Oxalate (Lexapro) 20 mg PO DAILY [facility] Last Admin: 07/12/17 09:48 Dose: 20 mg Glucagon () 1 mg IM .X1 PRN PRN Reason: Hypoglycemia Ceftriaxone Sodium (Rocephin) 1 gm in 50 mls @ 100 mls/hr IV Q24 [facility] Last Admin: 07/12/17 10:05 Dose: 100 mls/hr Sodium Chloride () 1,000 mls @ 100 mls/hr IV .Q10H [facility] Last Admin: 07/12/17 09:38 Dose: 100 mls/hr Insulin Aspart (Novolog Flexpen (Bkc)) 0 units SC ACHS [facility] PRN Reason: Protocol Last Admin: 07/12/17 12:09 Dose: 6 u Insulin Aspart (Novolog Flexpen (Bkc)) 20 units SC BREAKFAST [facility] Last Admin: 07/12/17 09:46 Dose: 20 u Insulin Aspart (Novolog Flexpen (Bkc)) 20 units SC DINNER [facility] Last Admin: 07/11/17 18:53 Dose: 20 units Insulin Aspart (Novolog Flexpen (Bkc)) 20 units SC LUNCH [facility] Last Admin: 07/12/17 12:11 Dose: 20 units Insulin Detemir (Levemir (Bkc)) 30 units SC BREAKFAST [facility] Last Admin: 07/12/17 09:45 Dose: 30 u Insulin Detemir (Levemir (Bkc)) 30 units SC QHS [facility] Last Admin: 07/11/17 21:42 Dose: 30 u Lisinopril (Zestril) 5 mg PO DAILY [facility] Last Admin: 07/12/17 09:48 Dose: 5 mg Magnesium Hydroxide (Milk Of Magnesia) 30 ml PO DAILY PRN PRN PRN Reason: Constipation Melatonin (Melatonin) 3 mg PO QHS [facility] Last Admin: 07/11/17 21:44 Dose: 3 mg Ondansetron HCl (Zofran) 4 mg IV Q8H PRN PRN PRN Reason: Nausea Oxybutynin Chloride (Ditropan) 5 mg PO BID [facility] Last Admin: 07/12/17 09:49 Dose: 5 mg Oxycodone HCl (Oxyir) 5 mg PO Q4H PRN PRN PRN Reason: Moderate Pain (pain scale 4-5) Last Admin: 07/12/17 05:57 Dose: 5 mg Pantoprazole Sodium (Protonix) 40 mg PO DAILY [facility] Last Admin: 07/12/17 09:48 Dose: 40 mg Pravastatin Sodium (Pravachol) 40 mg PO QHS [facility] Last Admin: 07/11/17 21:44 Dose: 40 mg Pregabalin (Lyrica) 75 mg PO QHS [facility] Last Admin: 07/11/17 21:41 Dose: 75 mg Trazodone HCl (Desyrel) 50 mg PO QHS [facility] Last Admin: 07/11/17 21:43 Dose: 50 mg Assessment/Plan Active and Suspected Problems UTI (urinary tract infection) (Acute) 1. Urinary tract infection: Secondary to E. coli and Klebsiella pneumoniae. Both of which are sensitive to ciprofloxacin. Would treat through the for a total of 7 days of antibiotics. Would recommend follow-up with urogynecology to see if any additional thing from a urologic standpoint can be done to help minimize his self catheterizations or for something anatomic outside the self- catheterization that are leading to these infections. Unlikely but may be worthwhile looking into.
--- NOTE | 2017-07-12 12:32 | DCINST_ITS ---
- Discharge Diagnoses Current Active Problems: Current Active and Chronic Problems UTI (urinary tract infection) (Acute) DM2 (diabetes mellitus, type 2) (Chronic) Essential (primary) hypertension (Chronic) CAD (coronary artery disease) (Chronic) Carotid artery disorder (Chronic) Dyslipidemia (Chronic) Obesity (Chronic) CKD (chronic kidney disease) (Chronic) You will use the following diet at home:: Calorie/Carbohydrate Controlled ( specify 1200, 1400, etc) - 1800 ADA Your food should be the consistency of: Regular Your liquids should be the consistency of: Regular/Thin Discharge Activity: - - prior activity level Call your doctor if you observe: Fever of 101 or Higher, - - Foul-smelling urine. Discomfort urinating. Allergies/Adverse Reactions: Allergies donepezil [From Aricept] Adverse Reaction (Verified 07/09/17 15:02) Other meperidine [From Demerol] Adverse Reaction (Verified 07/09/17 15:02) Other Medications to take at Discharge Aspirin E.C. [Ecotrin] 81 mg PO DAILY@0800 04/30/17 BuPROPion [Wellbutrin] 75 mg PO BID 04/30/17 Carvedilol [Coreg (Beta Radha)] 12.5 mg PO BID 04/30/17 Clopidogrel Bisulfate [Clopidogrel] 75 mg PO DAILY 04/30/17 Escitalopram Oxalate [Lexapro] 20 mg PO DAILY 04/30/17 Insulin Detemir [Levemir] 30 unit SQ BREAKFAST 04/30/17 Insulin Detemir [Levemir] 60 unit SQ QHS 04/30/17 Insulin Lispro [Humalog] 30 unit SC BREAKFAST 04/30/17 Insulin Lispro [Humalog] 30 unit SC LUNCH 04/30/17 Insulin Lispro [Humalog] 33 unit SC DINNER 04/30/17 Lisinopril [Zestril] 5 mg PO DAILY 04/30/17 Melatonin 3 mg PO QHS 04/30/17 Oxybutynin [Ditropan] 5 mg PO BID 04/30/17 Pantoprazole Sodium [Protonix] 40 mg PO DAILY 04/30/17 Pravastatin [Pravachol] 40 mg PO QHS 04/30/17 Pregabalin [Lyrica] 75 mg PO BID 04/30/17 Terazosin HCl 2 mg PO QHS 09/29/17 Trazodone HCl 50 mg PO QHS 04/30/17 Ciprofloxacin [Cipro] 500 mg PO BID #8 tab 07/12/17 The following prescriptions were given: Ciprofloxacin [Cipro] 500 mg PO BID #8 tab Primary Care Physician: Reggie Jerez MD [Primary Care Provider] - Within 2 Weeks Proposed Discharge Date: 07/12/17
--- NOTE | 2017-07-12 12:32 | PCM.DC.SUM ---
Discharge Date and Diagnosis - Problem List Patient Problems: Active and Suspected Problems UTI (urinary tract infection) (Acute) Date of Admission: 07/09/17 Date of Discharge: 07/12/17 - Primary Discharge Diagnosis Active and Suspected Problems UTI (urinary tract infection) (Acute) - Secondary Discharge Diagnosis Chronic Problems DM2 (diabetes mellitus, type 2) (Chronic) Essential (primary) hypertension (Chronic) CAD (coronary artery disease) (Chronic) Carotid artery disorder (Chronic) Dyslipidemia (Chronic) Obesity (Chronic) CKD (chronic kidney disease) (Chronic) Hospital Course and Treatment Imaging Results: Clinical Impression(s) from Imaging Studies Chest X-Ray 07/09/17 15:15 IMPRESSION: No acute abnormality is seen. Electronically Signed: Huang Lyons MD at 15:37 EST Tel [phone], Service support , Operations: None Procedures: None Summary of Care Provided: The patient is a 72 year old F who self catheterizes presents with weakness. Patient was found to have a urinary tract infection and started on Rocephin. Culture came back growing out E. coli as well as Klebsiella. And this is felt to be related with her self catheterizations though some other anatomic process could certainly be extruding Dr. though less likely. And patient states that her daughter, who is one who self catheterizes her, uses clean catheters each time and does not reuse catheters. The bacteria were sensitive to Cipro which the patient will complete 4 more days of that starting on the 12th to complete a seven-day course of antibiotics. Patient will be going home with family. [] Discharge Diet: 1800 Calorie Control Diet Discharge Activity: - - prior activity level Call your doctor if you observe: Fever of 101 or Higher, - - Foul-smelling urine. Discomfort urinating. Home Medications: Medications to take at Discharge Aspirin E.C. [Ecotrin] 81 mg PO DAILY@0800 04/30/17 BuPROPion [Wellbutrin] 75 mg PO BID 04/30/17 Carvedilol [Coreg (Beta Radha)] 12.5 mg PO BID 04/30/17 Clopidogrel Bisulfate [Clopidogrel] 75 mg PO DAILY 04/30/17 Escitalopram Oxalate [Lexapro] 20 mg PO DAILY 04/30/17 Insulin Detemir [Levemir] 30 unit SQ BREAKFAST 04/30/17 Insulin Detemir [Levemir] 60 unit SQ QHS 04/30/17 Insulin Lispro [Humalog] 30 unit SC BREAKFAST 04/30/17 Insulin Lispro [Humalog] 30 unit SC LUNCH 04/30/17 Insulin Lispro [Humalog] 33 unit SC DINNER 04/30/17 Lisinopril [Zestril] 5 mg PO DAILY 04/30/17 Melatonin 3 mg PO QHS 04/30/17 Oxybutynin [Ditropan] 5 mg PO BID 04/30/17 Pantoprazole Sodium [Protonix] 40 mg PO DAILY 04/30/17 Pravastatin [Pravachol] 40 mg PO QHS 04/30/17 Pregabalin [Lyrica] 75 mg PO BID 04/30/17 Terazosin HCl 2 mg PO QHS 04/30/17 Trazodone HCl 50 mg PO QHS 04/30/17 Ciprofloxacin [Cipro] 500 mg PO BID #8 tab 07/12/17 Following Prescrptions Were Given to Patient: Ciprofloxacin [Cipro] 500 mg PO BID #8 tab Primary Care Physician: Reggie Jerez MD [Primary Care Provider] - Within 2 Weeks Disposition: Home Minutes spent on discharge:: 32 Patient Condition:: Fair Meaningful Use Info Meaningful Use Diagnoses (Choose all that apply): None applicable Code Visit Inpatient E&M: 56886 Disch Hosp
[2017-07-12 15:40] VITALS: BP 148/53; PULSE 59; RESP 18; TEMP 36.7; O2SAT 98
== END 2017-07-12 15:37 | disposition home or self-care (01) | DRG 699 ==
LOC: ED 16:07 → MS3 18:37
PROVIDERS: Admitting Provider Internal Medicine; Emergency Provider Emergency Medicine; Family Provider Family Medicine; PCP Family Medicine
DX: T83.518A Infection and inflammatory reaction due to other urinary catheter, initial encounter (principal); Z68.41 Body mass index [BMI] 40.0-44.9, adult; E11.22 Type 2 diabetes mellitus with diabetic chronic kidney disease; B96.1 Klebsiella pneumoniae [K. pneumoniae] as the cause of diseases classified elsewhere; N30.00 Acute cystitis without hematuria; I25.10 Atherosclerotic heart disease of native coronary artery without angina pectoris; N18.3 Chronic kidney disease, stage 3 (moderate); Z95.5 Presence of coronary angioplasty implant and graft; E78.5 Hyperlipidemia, unspecified; E83.42 Hypomagnesemia; B96.20 Unspecified Escherichia coli [E. coli] as the cause of diseases classified elsewhere; E66.9 Obesity, unspecified; I12.9 Hypertensive chronic kidney disease with stage 1 through stage 4 chronic kidney disease, or unspecified chronic kidney disease; Z71.3 Dietary counseling and surveillance; E86.0 Dehydration; Z86.73 Personal history of transient ischemic attack (TIA), and cerebral infarction without residual deficits; I25.2 Old myocardial infarction; Z87.891 Personal history of nicotine dependence; Z79.899 Other long term (current) drug therapy; Z79.82 Long term (current) use of aspirin; Z79.02 Long term (current) use of antithrombotics/antiplatelets; Z79.4 Long term (current) use of insulin
CPT/HCPCS: 51702; 71010; 80048; 81001; 82962; 83735; 84484; 85025; 85027; 87040; 87077; 87086; 87088; 87186; 93005; 97110; 97116; 97162; 97166; 97530; 99218; 99285; J7030; A4216; G0378; G8978; G8979; G8987; G8988; J2405

== ENCOUNTER 2017-09-27 19:11 | Observation (INO) | payer MEDICARE, SELFPAY ==
[2017-09-27 19:12] VITALS: BP 170/59; PULSE 61; RESP 18; TEMP 36.9; O2SAT 97; BMI 46.9
--- NOTE | 2017-09-27 19:20 | NURSING ---
RN CALLED FOR EKG, PULLED OLD EKG'S FOR
[2017-09-27 19:23] VITALS: BP 170/59; PULSE 60; RESP 16; O2SAT 93
[2017-09-27 19:32] VITALS: BP 137/61; PULSE 60
--- NOTE | 2017-09-27 20:02 | EKG12_ITS ---
Test Reason : CP Blood Pressure : / mmHG Vent. Rate : 062 BPM Atrial Rate : 062 BPM P-R Int : 186 ms QRS Dur : 082 ms QT Int : 438 ms P-R-T Axes : 000 -11 034 degrees QTc Int : 444 ms Normal sinus rhythm Inferior infarct , age undetermined Abnormal ECG Confirmed by SOPHIA PETE, SHERRI ([id number]), health editor RA ORELLANA ([id number] on 09/29/2017 2:14:14 PM Referred By: MINESH LAU Confirmed By:SHERRI CORTES MD
--- NOTE | 2017-09-27 20:12 | ED.DCSUM_ITS ---
- ER Visit Summary Date of Service: 09/27/17 Chief Complaint: Chest pain History of Present Illness: The patient is a 72 F presenting with chest pain over the past 2 hours. Patient states she was watching TV and developed midsternal chest pain. This was associated with shortness of breath and diaphoresis. She had nausea with no vomiting. She has had multiple heart attacks in the past and states this feels similar. She has a total of 5 stents. She has diabetes, hypertension, hypercholesteremia. She is on aspirin and Plavix. She took 3 nitro and 4 baby aspirin prior to arrival. She states the pain was resolved after the third nitro. Physical Examination: Vitals are stable. Patient is afebrile. Alert no acute distress. HEENT exam is unremarkable. Neck is supple. Lungs are clear and equal bilaterally. Heart is regular rate and rhythm. Abdomen is soft nontender nondistended. Extremities are unremarkable. Skin is warm and dry. No focal neurologic deficit. Remainder of exam is unremarkable. Emergency Department Course and Treatment: EKG is sinus rate of 62 with no acute ischemic changes. Patient took aspirin just prior to arrival. Chest x- ray shows no acute process. CBC chemistries unremarkable other than BUN 23, glucose 196. Troponin is 0.05. On arrival patient was chest pain-free. While in the emergency department she developed chest pain again. Repeat EKG was obtained and is unchanged. She was given 1 nitro with improvement. Discussed with the hospitalist for admission. Disposition: Observation Impression: Chest pain This note was generated with [employer] dictation software. It may contain incorrect words, spelling, and punctuation that were not noted in review of the chart prior to signing ED Disposition - Plan for ED Patient: Chief Complaint: Chest Pain Referrals: Reggie Jerez MD [Primary Care Provider] -
[2017-09-27 20:13] LABS: Absolute Lymphocyte Count 2.18 X10^3/ul (0.83-4.51); Absolute Neutrophil Count 5.5 X10^3/uL (2.0-7.7); Basophil# 0.02 X10^3/uL; Basophil% 0.2 % (0-1); Eosinophil# 0.18 X10^3/uL; Eosinophils% 2.1 % (0-5); Hematocrit 38.9 % (37-47); Hemoglobin 12.3 g/dl (12.0-15.0); Lymphocyte # 2.18 X10^3/ul (4.0); Mean Corp Hgb Conc 31.6 g/gl (32-36); Mean Corpuscular Hgb 25.2 pg (27.0-32.0); Mean Corpuscular Volume 79.7 fL (81-99); Mean Platelet Vol. 10.2 fl (6.2-12.0); Monocyte# 0.48 X10^3/uL; Monocyte% 5.7 % (0-10); Neutrophil # 5.52 X10^3/uL (2.7-7.7); Neutrophil % 65.8 % (47-70); POSITIVE COUNT NO; POSITIVE DIFFERENTIAL NO; POSITIVE MORPHOLOGY NO; Platelet Count 167 K/mm3 (150-450); RBC Distribution Width CV 15.4 % (11.6-14.6); RBC Distribution Width SD 44.8 fl (35.1-43.9); Red Blood Count 4.88 M/mm3 (4.2-5.4); White Blood Count 8.4 K/mm3 (4.4-11.0)
--- NOTE | 2017-09-27 20:15 | RAD_ITS ---
STUDY: X-RAY CHEST REASON FOR EXAM: Female, 72 years old. Chest pain TECHNIQUE: Single AP portable view of the chest. COMPARISON: 07/09/2017. FINDINGS: The lungs are clear and expanded. Small scar across the lower left lung is stable. There is no demonstrated pleural abnormality. Normal size heart. Normal mediastinum and estephania. Normal visualized pulmonary arteries. Normal visualized aortic arch and descending thoracic aorta. Normal visualized thoracic spine. Normal visualized ribs, clavicles, and shoulders. There is no demonstrated abnormality of the visualized soft tissue structures of the upper abdomen. RAD/Chest 1 View (Portable) IMPRESSION: Normal x-ray examination of the chest. Electronically Signed: Terrell Jimenez MD at 20:46 EST , Service support ,
[2017-09-27 20:25] LABS: Anion Gap 6 (5-15); BUN 23 mg/dL (7-18); BUN/Creat Ratio 24.5 RATIO (10-20); Calcium,Total 8.3 mg/dL (8.5-10.1); Chloride 106 mmol/L (98-107); Creatinine, Serum 0.94 mg/dL (0.55-1.02); EST Glomerular Filtration Rate 62 mL/min (>60); Est Glom Filt Rate - Afr Amer 75 mL/min (>60); Estimated Creatinine Clearance 42.79 ml/min; Glucose 196 mg/dL (74-106); Potassium 4.2 mmol/L (3.5-5.1); Sodium Level 141 mmol/L (136-145)
--- NOTE | 2017-09-27 20:49 | EKG12_ITS ---
Test Reason : REPEAT Blood Pressure : / mmHG Vent. Rate : 061 BPM Atrial Rate : 061 BPM P-R Int : 190 ms QRS Dur : 088 ms QT Int : 476 ms P-R-T Axes : 034 -14 046 degrees QTc Int : 479 ms Normal sinus rhythm Normal ECG Confirmed by SHERRI CORTES MD ([id number]), scientific publications editor RA ORELLANA ([id number] on 09/29/2017 2:14:28 PM Referred By: MINESH Confirmed By:SHERRI CORTES MD
[2017-09-27 20:54] VITALS: BP 132/70; PULSE 60
[2017-09-27 21:13] VITALS: BP 130/70; PULSE 61; RESP 16; O2SAT 94
--- NOTE | 2017-09-27 22:48 | HP.PCM_ITS ---
Problem List (1) Chest pain Status: Acute Qualifiers: Chest pain type: chest pain due to myocardial ischemia Ischemic chest pain type: unstable angina pectoris Qualified Code(s): I20.0 - Unstable angina (2) CKD (chronic kidney disease) Status: Chronic Qualifiers: (3) Obesity Status: Chronic (4) Dyslipidemia Status: Chronic (5) Carotid artery disorder Status: Chronic (6) CAD (coronary artery disease) Status: Chronic (7) Essential (primary) hypertension Status: Chronic (8) DM2 (diabetes mellitus, type 2) Status: Chronic History of Present Illness Date of Admission: 09/27/17 Chief Complaint: chest pain The patient is a 72 year old female with a significant past medical history of coronary artery disease who presents to the ER with chest pain. Onset occurred this evening while she was at rest. This was the same pain she has had with previous heart attack. After four nitroglycerin tablets given at home and by EMS her pain improved. Upon arrival to the ER her chest pain resumed and this again resolved after a dose of nitroglycerin. Initial troponin is 0.05. She has a history of multiple stents in LAD and apparently required another procedure to place a stent within two already existing stents due to stenosis. She is requesting to stay here for her coronary intervention needs. Past Medical History Past Medical History (Chronic Problems): Chronic Problems CKD (chronic kidney disease) (Chronic) Obesity (Chronic) Dyslipidemia (Chronic) Carotid artery disorder (Chronic) CAD (coronary artery disease) (Chronic) Essential (primary) hypertension (Chronic) DM2 (diabetes mellitus, type 2) (Chronic) Allergies donepezil [From Aricept] Adverse Reaction (Verified 09/27/17 19:15) Other meperidine [From Demerol] Adverse Reaction (Verified 09/27/17 19:15) Other Home Medications: Ambulatory Orders Medication Instructions Recorded Aspirin E.C. [Ecotrin] 81 mg PO DAILY@0800 04/30/17 BuPROPion [Wellbutrin] 75 mg PO BID 04/30/17 Carvedilol [Coreg (Beta Radha)] 12.5 mg PO BID 04/30/17 Clopidogrel Bisulfate [Clopidogrel] 75 mg PO DAILY 04/30/17 Escitalopram Oxalate [Lexapro] 20 mg PO DAILY 04/30/17 Insulin Detemir [Levemir] 30 unit SQ BREAKFAST 04/30/17 Insulin Detemir [Levemir] 60 unit SQ QHS 04/30/17 Insulin Lispro [Humalog] 30 unit SC BREAKFAST 04/30/17 Insulin Lispro [Humalog] 30 unit SC LUNCH 04/30/17 Insulin Lispro [Humalog] 33 unit SC DINNER 04/30/17 Lisinopril [Zestril] 5 mg PO DAILY 04/30/17 Melatonin 3 mg PO QHS 04/30/17 Oxybutynin [Ditropan] 5 mg PO BID 04/30/17 Pantoprazole Sodium [Protonix] 40 mg PO DAILY 04/30/17 Pravastatin [Pravachol] 40 mg PO QHS 04/30/17 Pregabalin [Lyrica] 75 mg PO BID 04/30/17 Terazosin HCl 2 mg PO QHS 04/30/17 Trazodone HCl 50 mg PO QHS 04/30/17 Nitrofurantoin Macrocrystals 100 mg PO Q12 09/27/17 [Macrobid] Smoking Status: Current some day smoker - *Family History Maternal History Items: Heart Disease Review of Systems Constitutional: Denies: Chills, Fever, Weight Change HEENT: Denies: Head Aches, Sinus Congestion, Sinus Drainage Cardiovascular: Reports: Chest Pain, Chest Pressure, Chest Tightness, Heaviness. Denies: Palpitations Respiratory: Denies: Cough, Shortness of breath at rest, Sputum production Gastrointestinal: Denies: Abdominal Pain, Nausea, Vomiting Genitourinary: Denies: Dysuria Musculoskeletal: Denies: Joint Pain, Joint Tenderness Skin: Denies: Rash, Wounds Neurological: Denies: Numbness, Tingling, Focal weakness Psychiatric: Denies: Anxiety, Depression, Homicidal Ideations, Suicidal Ideations Hematologic/ Lymphatic: Denies: Easy Bruising, Easy Bleeding VTE Information - Inpt Only VTE Present on Admission: No VTE Mechan Device Prophylaxis: None VTE Pharm Prophylaxis ordered?: Yes Patient Problems: Active and Suspected Problems Chest pain (Acute) - Physical Exam General: Alert, Oriented x3, Cooperative HEENT: Atraumatic, Normocephalic Neck: Supple Lungs: Clear to auscultation, Normal air movement, No rhonchi, No wheeze, No rales Cardiovascular: Regular rate, Regular Rhythm, Normal S1, Normal S2, No murmurs Abdomen: Bowel Sounds Present, Soft, Non Tender, Obese Extremities: No edema Skin: No rashes Musculoskeletal: No Tenderness to Palpation of Joints or Extremities Neurological: Neuro grossly intact Psych/Mental Status: Normal Affect, Appropriate Vital Signs Temp Pulse Resp BP Pulse Ox 98.5 F 61 16 130/70 H 94 09/27/17 19:12 09/27/17 21:13 09/27/17 21:13 09/27/17 21:13 09/27/17 21:13 Oxygen Delivery Method Room Air Weight: 256 lb 6.362 oz Body Mass Index (BMI) 46.9 Laboratory Tests Past 24 Hrs 09/27/17 09/27/17 19:20 19:20 WBC 8.4 RBC 4.88 Hgb 12.3 Hct 38.9 MCV 79.7 L MCH 25.2 L MCHC 31.6 L RDW 15.4 H RDW Differential 44.8 H Plt Count 167 MPV 10.2 Immature Gran % (Auto) 0.200 Neut % (Auto) 65.8 Lymph % (Auto) 26.0 [place] % (Auto) 5.7 Eos % (Auto) 2.1 Baso % (Auto) 0.2 Absolute Neuts (auto) 5.5 Absolute Lymphs (auto) 2.18 Total Counted Not Reportable Sodium 141 Potassium 4.2 Chloride 106 Carbon Dioxide 29.0 Anion Gap 6 BUN 23 H Creatinine 0.94 Estim Creat Clear Calc 42.79 Est GFR (MDRD) Af Amer 75 Est GFR (MDRD) Non-Af 62 BUN/Creatinine Ratio 24.5 H Glucose 196 H Calcium 8.3 L Troponin I 0.05 Assessment/Plan Active and Suspected Problems Chest pain (Acute) Chronic Problems CKD (chronic kidney disease) (Chronic) Obesity (Chronic) Dyslipidemia (Chronic) Carotid artery disorder (Chronic) CAD (coronary artery disease) (Chronic) Essential (primary) hypertension (Chronic) DM2 (diabetes mellitus, type 2) (Chronic) Plan - admit to progressive care unit - consult Dr Wright - cycle cardiac enzymes - morphine, oxygen, nitroglycerin and aspirin per routine - continue routine home medications - NPO at midnight - LMWH for DVT prophylaxis Code Visit Inpatient E&M: [id number] Init Hosp L3
[2017-09-27 23:09] VITALS: BP 128/73; PULSE 63; RESP 18; O2SAT 97
--- NOTE | 2017-09-27 23:14 | ED.RN ---
called Rocío, pt's daughter [phone] to inform of [facility]
[2017-09-28] VITALS (18 sets, daily range): BP systolic 127–157; BP diastolic 49–76; PULSE 57–77; RESP 15–18; TEMP 36.5–37; O2SAT 92–98; BMI 43.8; BMI 46.9
[2017-09-28 01:16] LABS: Bedside Glucose 259 mg/dL (70-110)
[2017-09-28 05:14] LABS: Absolute Lymphocyte Count 2.54 X10^3/ul (0.83-4.51); Absolute Neutrophil Count 5.1 X10^3/uL (2.0-7.7); Basophil# 0.03 X10^3/uL; Basophil% 0.4 % (0-1); Eosinophils% 2.4 % (0-5); Hematocrit 40.5 % (37-47); Hemoglobin 12.3 g/dl (12.0-15.0); Lymphocyte # 2.54 X10^3/ul (4.0); Lymphocyte % 30.2 % (19-41); Mean Corp Hgb Conc 30.4 g/gl (32-36); Mean Corpuscular Hgb 24.4 pg (27.0-32.0); Mean Corpuscular Volume 80.4 fL (81-99); Mean Platelet Vol. 10.3 fl (6.2-12.0); Monocyte# 0.53 X10^3/uL; Monocyte% 6.3 % (0-10); Neutrophil % 60.5 % (47-70); Platelet Count 171 K/mm3 (150-450); RBC Distribution Width CV 15.6 % (11.6-14.6); RBC Distribution Width SD 45.7 fl (35.1-43.9); Red Blood Count 5.04 M/mm3 (4.2-5.4); White Blood Count 8.4 K/mm3 (4.4-11.0)
[2017-09-28 05:19] LABS: POSITIVE COUNT NO; POSITIVE DIFFERENTIAL NO; POSITIVE MORPHOLOGY NO
[2017-09-28 05:33] LABS: BNP,B-Type NATRIURETIC PEPTIDE 50.3 pg/mL (0-100)
[2017-09-28 06:32] LABS: ALB/GLOB Ratio 0.9 RATIO (0.9-2.4); AST(SGOT) 12 U/L (15-37); Alanine Aminotransfer ALT/SGPT 19 U/L (13-56); Albumin, Serum 2.9 g/dL (3.2-5.0); Alkaline Phosphatase 82 U/L (45-117); Anion Gap 7 (5-15); BUN 20 mg/dL (7-18); BUN/Creat Ratio 20.2 RATIO (10-20); Bilirubin, Direct 0.06 mg/dL (0.00-0.30); Calcium,Total 8.3 mg/dL (8.5-10.1); Chloride 106 mmol/L (98-107); Cholesterol 153 mg/dL (200); Creatinine, Serum 0.99 mg/dL (0.55-1.02); EST Glomerular Filtration Rate 59 mL/min (>60); Est Glom Filt Rate - Afr Amer 71 mL/min (>60); Estimated Creatinine Clearance 42.49 ml/min; Globulin 3.3 g/dL (2.2-4.2); Glucose 238 mg/dL (74-106); High Density Lipoprotein 39 mg/dL; Magnesium 1.9 mg/dL (1.6-2.6); Potassium 4.1 mmol/L (3.5-5.1); Protein, Total 6.2 g/dL (6.4-8.2); Sodium Level 141 mmol/L (136-145); Thyroid Stim Hormone (TSH) 0.78 uIU/mL (0.358-3.74); Triglycerides 389 mg/dL; Very Low Density Lipoprotein 78 mg/dL (5-40)
[2017-09-28 06:41] LABS: Bedside Glucose 252 mg/dL (70-110)
--- NOTE | 2017-09-28 06:59 | CON.PCM_ITS ---
Reason for Consult Date of Consultation: 09/28/17 Reason for Consultation: Chest pain History of Present Illness: The patient is a 72 year old F history of coronary artery disease status post stenting remotely at least 4 or 5 times and a history of hypertension hyperlipidemia obesity who presented to the emergency room after experiencing chest discomfort which she said began as a dull sensation in her mid chest. It radiated down towards her abdomen. She took some sublingual nitroglycerin and was also given some by the emergency medical squad. She was brought to the emergency room and in the emergency room she was evaluated and given additional sublingual nitroglycerin an EKG which was performed did not demonstrate any acute ischemic changes. Her troponin was however minimally abnormal. Due to her previous history it was decided to admit her for further evaluation and management. She has had stress tests in the past but she says they have not shown anything. There was no associated diaphoresis no nausea no vomiting with this discomfort. No radiation was noted. Currently she is free of discomfort. [] Past Medical History Allergies/Adverse Reactions: Allergies donepezil [From Aricept] Adverse Reaction (Verified 09/28/17 00:44) Other meperidine [From Demerol] Adverse Reaction (Verified 09/28/17 00:44) Other Home Medications: Ambulatory Orders Medication Instructions Recorded Aspirin E.C. [Ecotrin] 81 mg PO DAILY@0800 04/30/17 BuPROPion [Wellbutrin] 75 mg PO BID 04/30/17 Carvedilol [Coreg (Beta Radha)] 12.5 mg PO BID 04/30/17 Clopidogrel Bisulfate [Clopidogrel] 75 mg PO DAILY 04/30/17 Escitalopram Oxalate [Lexapro] 20 mg PO DAILY 04/30/17 Insulin Detemir [Levemir] 30 unit SQ BREAKFAST 04/30/17 Insulin Detemir [Levemir] 60 unit SQ QHS 04/30/17 Insulin Lispro [Humalog] 30 unit SC BREAKFAST 04/30/17 Insulin Lispro [Humalog] 30 unit SC LUNCH 04/30/17 Insulin Lispro [Humalog] 33 unit SC DINNER 04/30/17 Lisinopril [Zestril] 5 mg PO DAILY 04/30/17 Melatonin 3 mg PO QHS 04/30/17 Oxybutynin [Ditropan] 5 mg PO BID 04/30/17 Pantoprazole Sodium [Protonix] 40 mg PO DAILY 04/30/17 Pravastatin [Pravachol] 40 mg PO QHS 04/30/17 Pregabalin [Lyrica] 75 mg PO BID 04/30/17 Terazosin HCl 2 mg PO QHS 04/30/17 Trazodone HCl 50 mg PO QHS 04/30/17 Nitrofurantoin Macrocrystals 100 mg PO Q12 09/27/17 [Macrobid] Past Medical History (Chronic Problems): Chronic Problems CKD (chronic kidney disease) (Chronic) Obesity (Chronic) Dyslipidemia (Chronic) Carotid artery disorder (Chronic) CAD (coronary artery disease) (Chronic) Essential (primary) hypertension (Chronic) DM2 (diabetes mellitus, type 2) (Chronic) - *Family History Maternal History Items: Heart Disease Smoking Status: Former smoker Alcohol: None Drugs: None Review of Systems - Review of Systems General: Denies: Fever, Night Sweats, Fatigue Cardiovascular: Reports: Chest Discomfort, Chest Discomfort at Rest, Shortness of Breath with Exertion. Denies: Shortness of Breath, Orthopnea, PND, Peripheral Edema, Palpitations, Lightheadedness, Dizziness, Near Syncope, Syncope Respiratory: Denies: Cough, Sputum Production, Hemoptysis Gastrointestinal: Denies: Hematemesis, Hematochezia, Melena Genitourinary: Denies: Dysuria, Hematuria Skin: Denies: Rash Subjectve: Elderly lady in no distress Objective: Vital Signs Temp Pulse Resp BP Pulse Ox 98.2 F 74 18 157/58 H 97 09/28/17 06:00 09/28/17 06:00 09/28/17 06:00 09/28/17 06:00 09/28/17 06:00 Oxygen Delivery Method Room Air Weight: 247 lb 5.738 oz Body Mass Index (BMI) 43.8 Intake and Output for Last 24 Hours 09/26/17 09/27/17 09/28/17 23:59 23:59 23:59 Output Total 150 / 150 Balance -150 / -150 General: Awake, Alert, Oriented x 3 HEENT: PERRL, EOMI, Sclera Non Icteric Neck: Supple, Good ROM, No Lymph Node Enlargement Lungs: Clear to auscultation Cardiovascular: Regular Rhythm, Normal S1, Normal S2, No Murmurs, No Rubs, No Gallops Vascular: No Carotid Bruits, Normal Femoral Pulses, Normal Radial Pulses, Normal Dorsalis Pedal Pulse, Normal Posterior Tibial Pulses Abdomen: Bowel Sounds Present, Soft, Non Tender, No HSM, No Organomegaly Extremities: No Cyanosis, No Clubbing, No edema Neurological: No Focal Motor or Sensory Deficit Psych/Mental Status: Appropriate 09/28/17 01:03: Troponin I 0.05 09/28/17 04:52: WBC 8.4, RBC 5.04, Hgb 12.3, Hct 40.5, MCV 80.4 L, MCH 24.4 L, MCHC 30.4 L, RDW 15.6 H, RDW Differential 45.7 H, Plt Count 171, MPV 10.3, Immature Gran % (Auto) 0.200, Neut % (Auto) 60.5, Lymph % (Auto) 30.2, [place] % ( Auto) 6.3, Eos % (Auto) 2.4, Baso % (Auto) 0.4, Absolute Neuts (auto) 5.1, Total Counted Not Reportable 09/28/17 04:52: Sodium 141, Potassium 4.1, Chloride 106, Carbon Dioxide 28.0, Anion Gap 7, BUN 20 H, Creatinine 0.99, Est GFR (MDRD) Af Amer 71, Est GFR (MDRD ) Non-Af 59 L, BUN/Creatinine Ratio 20.2 H, Glucose 238 H, Calcium 8.3 L, Magnesium 1.9, Total Bilirubin 0.20, Direct Bilirubin 0.06, Triglycerides 389 H , Cholesterol 153, LDL Cholesterol 36, VLDL Cholesterol 78 H, HDL Cholesterol 39 L 09/28/17 04:52: B-Natriuretic Peptide 50.3 09/28/17 04:52: Troponin I 0.05 Rhythm: EKG: Normal sinus rhythm with no acute changes. Rate of 61 bpm is noted. Assessment/Plan 1. Chest pain. Etiology of her chest discomfort is not clear at this time. With her known coronary artery disease and being a diabetic I would have a low threshold to further evaluate her coronary anatomy. Her body habitus does lend to some than optimal results with stress testing and therefore I would suggest proceeding directly to cardiac catheterization. Discussed this with her the risk benefits and alternatives and she agrees to proceed. She will remain on her aspirin as well as clopidogrel and beta-radha for now. 2. Hypertension Control on the current medical therapy no suggest we make any changes. 3. Hyperlipidemia Her lipid profile appears to be excellent on her current statin dose and I would not suggest that we make any changes. 4. Obesity Recommend continued risk factor modifications. Thank you for allowing me to participate in the care of your patient. Please don't hesitate to call if any issues arise
--- NOTE | 2017-09-28 06:59 | ECHOD_ITS ---
Reason For Study: CHEST PAIN Procedure This was a 2D Doppler, Color Flow transthoracic echocardiogram. Exam performed portable in patient room. Left Ventricle Normal LV size. Mild concentric left ventricular hypertrophy. Left ventricular systolic function is normal. The estimated ejection fraction is 65 %. Stage 1 diastolic dysfunction. No regional wall motion abnormalities noted. Right Ventricle Normal RV size. Normal systolic function. Atria Normal left atrium. Normal right atrium. Mitral Valve Normal mitral valve. Tricuspid Valve Normal tricuspid valve. Mild (1+) tricuspid valve insufficiency. Pulmonary artery systolic pressure is 40 mmHg. Mild pulmonary hypertension. Aortic Valve Normal aortic valve. Trisinus/trileaflet aortic valve. Pulmonic Valve The pulmonic valve is not well visualized. Great Vessels Normal aortic root. The pulmonary artery is normal size. Inferior vena cava collapse with sniff. Pericardium/Pleural No pericardial effusion. MMode/2D Measurements & Calculations LVIDd: 4.3 cm IVSd: 1.2 cm LVOT diam: 2.0 cm LVIDs: 2.7 cm LVPWd: 1.4 cm LVOT area: 3.2 cm2 RVDd: 3.6 cm FS: 37.3 % Ao root diam: 3.2 cm LAV(MOD-bp): 52.9 ml LA A4 area: 21.6 cm2 LA dimension: 3.7 cm LAV(MOD-bp) Indexed: 25.1 ml/m2 LAV(MOD-sp2): 43.8 ml LAV(MOD-sp4): 63.6 ml RA A4 area: 11.7 cm2 Doppler Measurements & Calculations MV E max davi: 110.6 cm/sec Ao V2 max: 185.9 cm/sec LV V1 max: 112.8 cm/sec MV A max davi: 136.5 cm/sec Ao max P.8 mmHg LV V1 max P.1 mmHg MV E/A: 0.81 WILMAR(V,D): 1.9 cm2 TR max davi: 300.7 cm/sec TR max P.2 mmHg Interpretation Summary Normal LV size. Mild concentric left ventricular hypertrophy. The estimated ejection fraction is 65 %. Stage 1 diastolic dysfunction. Mild pulmonary hypertension. Ordering Physician: Titus Wright Referring Physician: YVON WHITE Performed By: Marylin More, RDCS, RVT
--- NOTE | 2017-09-28 07:16 | PCM.PROGNOTE ---
Patient Problems: Active and Suspected Problems Chest pain (Acute) Subjective: Patient is a 72-year-old female with a past medical history of chronic renal failure, obesity, dyslipidemia, morbid obesity, carotid artery stenosis, CAD with hx of multiple stents, hypertension and diabetes mellitus type 2 who presented to the emergency department at [facility] on 09/27/2017 complaining of chest pain. The onset of the chest pain was at rest and after a total of 4 NTG the pain began to subside but, then intensified in the ER. The initial troponin in the emergency room was 0.05. she was admitted to a monitored bed on PCU and Dr. Wright was consulted. She has been seen in consultation by Dr. Wright who recommends cardiac catheterization. Patient was agreeable. Triglycerides are elevated at 389 and the LDL is 36 with an HDL of 39. TSH is within normal limits. Fasting blood sugar today is 238. The blood sugar at admission was 196. - Physical Exam Vital Signs Temp Pulse Resp BP Pulse Ox 98.2 F 74 18 157/58 H 97 09/28/17 06:00 09/28/17 06:00 09/28/17 06:00 09/28/17 06:00 09/28/17 06:00 Oxygen Delivery Method Room Air Weight: 247 lb 5.738 oz Body Mass Index (BMI) 43.8 Intake and Output for Last 24 Hours 09/26/17 09/27/17 09/28/17 23:59 23:59 23:59 Output Total 150 / 150 Balance -150 / -150 Laboratory Tests Past 24 Hrs 09/28/17 09/28/17 09/28/17 01:03 04:52 04:52 WBC 8.4 RBC 5.04 Hgb 12.3 Hct 40.5 MCV 80.4 L MCH 24.4 L MCHC 30.4 L RDW 15.6 H RDW Differential 45.7 H Plt Count 171 MPV 10.3 Immature Gran % (Auto) 0.200 Neut % (Auto) 60.5 Lymph % (Auto) 30.2 [place] % (Auto) 6.3 Eos % (Auto) 2.4 Baso % (Auto) 0.4 Absolute Neuts (auto) 5.1 Absolute Lymphs (auto) 2.54 Total Counted Not Reportable Sodium 141 Potassium 4.1 Chloride 106 Carbon Dioxide 28.0 Anion Gap 7 BUN 20 H Creatinine 0.99 Estim Creat Clear Calc 42.49 Est GFR (MDRD) Af Amer 71 Est GFR (MDRD) Non-Af 59 L BUN/Creatinine Ratio 20.2 H Glucose 238 H Calcium 8.3 L Magnesium 1.9 Total Bilirubin 0.20 Direct Bilirubin 0.06 AST 12 L ALT 19 Alkaline Phosphatase 82 Troponin I 0.05 B-Natriuretic Peptide Total Protein 6.2 L Albumin 2.9 L Globulin 3.3 Albumin/Globulin Ratio 0.9 Triglycerides 389 H Cholesterol 153 LDL Cholesterol 36 VLDL Cholesterol 78 H HDL Cholesterol 39 L TSH 0.78 09/28/17 09/28/17 04:52 04:52 WBC RBC Hgb Hct MCV MCH MCHC RDW RDW Differential Plt Count MPV Immature Gran % (Auto) Neut % (Auto) Lymph % (Auto) [place] % (Auto) Eos % (Auto) Baso % (Auto) Absolute Neuts (auto) Absolute Lymphs (auto) Total Counted Sodium Potassium Chloride Carbon Dioxide Anion Gap BUN Creatinine Estim Creat Clear Calc Est GFR (MDRD) Af Amer Est GFR (MDRD) Non-Af BUN/Creatinine Ratio Glucose Calcium Magnesium Total Bilirubin Direct Bilirubin AST ALT Alkaline Phosphatase Troponin I 0.05 B-Natriuretic Peptide 50.3 Total Protein Albumin Globulin Albumin/Globulin Ratio Triglycerides Cholesterol LDL Cholesterol VLDL Cholesterol HDL Cholesterol TSH POC Glucose 09/28/17 09/28/17 06:09 01:11 POC Glucose 252 H 259 H Assessment/Plan Active and Suspected Problems Chest pain (Acute)
[2017-09-28 08:11] LABS: Hemoglobin A1c 8.7 % (4.2-6.3)
[2017-09-28] MEDS: Aspirin E.C. 81 MG Tablet PO (08:12)
--- NOTE | 2017-09-28 08:23 | CASEMGMT ---
According to [facility] website, the following are in-network tertiary facilities: [facility], [place], [facility], [place], [facility], [facility], [facility], [place], [facility], and . Desirae MARTIN CM
[2017-09-28] MEDS: Oxybutynin 5 MG Tablet PO (09:47)
[2017-09-28] MEDS: Carvedilol 12.5 MG Tablet PO (09:47)
[2017-09-28] MEDS: Escitalopram Oxalate 20 MG Tablet PO (09:47)
[2017-09-28] MEDS: Clopidogrel Bisulfate 75 MG Tablet PO (09:48)
[2017-09-28] MEDS: Nitrofurantoin Macrocrystals 100 MG Capsule PO (09:48)
[2017-09-28] MEDS: Lisinopril 5 MG Tablet PO (09:49)
[2017-09-28] MEDS: Pantoprazole Sodium 40 MG Tablet PO (09:49)
[2017-09-28] MEDS: Pregabalin 75 MG Capsule PO (09:54)
--- NOTE | 2017-09-28 10:36 | EKGRS_ITS ---
Test Reason : PRE CATH Blood Pressure : / mmHG Vent. Rate : 064 BPM Atrial Rate : 064 BPM P-R Int : 216 ms QRS Dur : 084 ms QT Int : 436 ms P-R-T Axes : 043 -10 043 degrees QTc Int : 449 ms Sinus rhythm with 1st degree A-V block Inferior infarct , age undetermined Abnormal ECG When compared with ECG of 27-SEP-2017 21:08, MANUAL COMPARISON REQUIRED, DATA IS UNCONFIRMED Confirmed by SOPHIA PETE, SHERRI ([id number]), development editor RA ORELLANA ([id number]) on 09/29/2017 2:47:03 PM Referred By: PHILLIP Confirmed By:SHERRI CORTES MD
[2017-09-28 11:14] LABS: International Normalized Ratio 1.1; Prothrombin Time (Protime)PT. 13.4 SECONDS (11.7-14.9)
[2017-09-28 11:15] LABS: Partial Thromboplast Time 25.3 Seconds (24.1-36.2)
[2017-09-28 11:26] LABS: Bedside Glucose 264 mg/dL (70-110)
[2017-09-28] MEDS: 0.9% Normal Saline 1,000 ML 15 ML IV (11:31)
[2017-09-28 11:36] LABS: Mucous, Urine 0 SEEN /hpf (<or=2+); Red Blood Cells-Urine 0 SEEN /hpf (0-5); Squamous Epithelial Cells - UA 0 SEEN /hpf (5-10)
[2017-09-28 11:38] LABS: Color, Urine Yellow (Yellow); Glucose, Dipstick Normal (Normal); Ketone-Dipstick Negative (Negative); Leukocyte Esterase-Dipstick 25 /ul (Negative); Nitrite-Dipstick Positive (Negative); Occult Blood-Urine Negative /ul (Negative); Protein-Dipstick Negative (Negative); Specific Gravity, Urine 1.015 (1.002-1.030); Urine Bilirubin Dipstick Negative (Negative); Urine Clarity Clear (Clear); Urine Urobilinogen Normal (Normal)
--- NOTE | 2017-09-28 11:45 | NURSING ---
1145- report called to label folder
[2017-09-28 11:48] LABS: Bacteria 2+ /hpf (None Seen); White Blood Cells 0-5 SEEN /hpf (0-5)
--- NOTE | 2017-09-28 13:25 | PN.CARD_ITS ---
Subjectve: Since seen and evaluated. Objective: Vital Signs Temp Pulse Resp BP Pulse Ox 98 F 62 16 131/76 H 95 09/28/17 11:27 09/28/17 11:27 09/28/17 11:27 09/28/17 11:27 09/28/17 11:27 Oxygen Delivery Method Room Air Weight: 247 lb 5.738 oz Body Mass Index (BMI) 43.8 Intake and Output for Last 24 Hours 09/26/17 09/27/17 09/28/17 23:59 23:59 23:59 Output Total 150 / 150 Balance -150 / -150 General: Awake, Alert, Oriented x 3 HEENT: PERRL, EOMI, Sclera Non Icteric Neck: Supple, Good ROM, No Lymph Node Enlargement Lungs: Clear to auscultation Cardiovascular: Regular Rhythm, Normal S1, Normal S2, No Murmurs, No Rubs, No Gallops Vascular: No Carotid Bruits, Normal Femoral Pulses, Normal Radial Pulses, Normal Dorsalis Pedal Pulse, Normal Posterior Tibial Pulses Abdomen: Bowel Sounds Present, Soft, Non Tender, No HSM, No Organomegaly Extremities: No Cyanosis, No Clubbing, No edema Neurological: No Focal Motor or Sensory Deficit 09/28/17 01:03: Troponin I 0.05 09/28/17 04:52: WBC 8.4, RBC 5.04, Hgb 12.3, Hct 40.5, MCV 80.4 L, MCH 24.4 L, MCHC 30.4 L, RDW 15.6 H, RDW Differential 45.7 H, Plt Count 171, MPV 10.3, Immature Gran % (Auto) 0.200, Neut % (Auto) 60.5, Lymph % (Auto) 30.2, [place] % ( Auto) 6.3, Eos % (Auto) 2.4, Baso % (Auto) 0.4, Absolute Neuts (auto) 5.1, Total Counted Not Reportable 09/28/17 04:52: Sodium 141, Potassium 4.1, Chloride 106, Carbon Dioxide 28.0, Anion Gap 7, BUN 20 H, Creatinine 0.99, Est GFR (MDRD) Af Amer 71, Est GFR (MDRD ) Non-Af 59 L, BUN/Creatinine Ratio 20.2 H, Glucose 238 H, Calcium 8.3 L, Magnesium 1.9, Total Bilirubin 0.20, Direct Bilirubin 0.06, Triglycerides 389 H , Cholesterol 153, LDL Cholesterol 36, VLDL Cholesterol 78 H, HDL Cholesterol 39 L 09/28/17 04:52: B-Natriuretic Peptide 50.3 09/28/17 04:52: Troponin I 0.05 09/28/17 04:52: Hemoglobin A1c 8.7 H 09/28/17 10:15: Troponin I 0.06 09/28/17 10:15: PT 13.4, INR 1.1, APTT 25.3 09/28/17 11:20: Urine Color Yellow, Urine Clarity Clear, Urine pH 6.0, Ur Specific [place] 1.015, Urine Protein Negative, Urine Glucose (UA) Normal, Urine Ketones Negative, Urine Occult Blood Negative, Urine Nitrite Positive H, Urine Bilirubin Negative, Urine Urobilinogen Normal, Ur Leukocyte Esterase 25 H , Urine RBC 0 SEEN, Urine WBC 0-5 SEEN Rhythm: EKG: ECHO: Stress Test: Cardiac Cath: PCI: CT Surgery: Holter monitor: EPS: PPM: CXR: Chest CT Scan: Assessment/Plan 1. Chest pain. Etiology of her chest discomfort is not clear at this time. He went a cardiac catheterization which demonstrated patency of his stents with minimal coronary artery disease residual. At this time it appears that her chest discomfort is not secondary to obstructive coronary disease and alternative etiologies should be sought. This can be done as an outpatient. 2. Hypertension Control on the current medical therapy no suggest we make any changes. 3. Hyperlipidemia Her lipid profile appears to be excellent on her current statin dose and I would not suggest that we make any changes. 4. Obesity Recommend continued risk factor modifications. Thank you for allowing me to participate in the care of your patient. Please don't hesitate to call if any issues arise and I explained the above to the patient and her relatives.
--- NOTE | 2017-09-28 13:35 | CL.D_ITS ---
Patient Name: LETICIA GRECO Study Date: 09/28/2017 Performing: Titus Wright MD Ht: 63 inches 160 cm : 1945 Wt: 247.2 lbs 112 kg Age: 72 Gender: female BSA: 2.11 PROCEDURE(S) PERFORMED [id number]/LV CLINICAL PROFILE AND INDICATIONS INDICATIONS: 72 yo lady with chest pain Stress/Imaging Stress/Image Study Performed: No CAD Presentations: Symptom unlikely to be ischemic. CONCLUSIONS Mild CAD with no stenosis RECOMMENDATIONS Medical therapy DESCRIPTION OF PROCEDURE The patient arrived to the procedure lab. The risks and benefits of the procedure as well as a full d escription of our services here and current unavailability of surgical backup were fully explained to the patient and/or their significant other prior to the catheterization. The Timeout was completed, verifying the correct patient and procedure. The patient's procedural site was prepped and draped in the usual fashion. Local anesthetic was given subcutaneously to right radial region with Lidocaine 2% . Using a modified Seldinger technique, arterial access was obtained via the right ulnar a 6Fr sheat h was inserted. Left Coronary Artery selective angiography was performed in multiple views using a 5 Fr. 4.0 [place] catheter. Right Coronary Artery selective angiography was then performed in multiple v iews using a 5 Fr. 4.0 [place] catheter. Left Ventriculography was performed in OLSON projection using a 5 Fr. Pigtail catheter. LV to AO pullback pressures were then recorded.The arterial sheath was pulled and a TR Band was applied for hemostasis w18ml air CORONARY ANGIOGRAPHY DOMINANCE: Left Dominant LEFT HEART ASSESSMENT Left Ventricular Ejection Fraction: by LV Gram 60 % Normal LV wall motion Normal Left Ventricular systolic function LEFT MAIN: Mild calcification LEFT ANTERIOR DECENDING ARTERY: Mild luminal irregularities MID LAD: Previously placed stent has an instent 20 % restenosis CIRCUMFLEX ARTERY: Mild luminal irregularities RIGHT CORONARY ARTERY: OSTIAL RCA: 30 % Stenosis PROX RCA: Previously placed stent is patent COMPLICATIONS No Complications PROCEDURE MEDICATIONS Versed 1 mg IV Fentanyl 50 mcg IV Fentanyl 25 mcg IV Versed 1 mg IV Fentanyl 25 mcg IV Oxygen: 2 L/min via nasal cannula Heparin diluted in 23cc Heparinized saline. Patient given 10cc IA of this solution. 09/28/2017 12:57: 20 Verapamil 2.5mg, Ntg 100mcgs, 2000 units of Heparin diluted in 23cc Heparinized saline. Patient give n 10cc IA of this solution. 09/28/2017 12:57:20 SUMMARY OF HEMODYNAMIC DATA Time AIR REST ECG 11:58:13 AO 123/64 (85) SA 12:58:57 LV 143/13, 21 13:05:14 LV 140/10, 16 13:05:20 LV 144/16, 24 13:06:44 LVp 141/13, 30 13:06:47 AOp 149/63 (99) 13:06:52 Signed By Titus Wright MD On 09/28/2017 13:34:43 Titus Wright MD
[2017-09-28] MEDS: 0.9% Normal Saline 1,000 ML 75 ML IV (14:10)
--- NOTE | 2017-09-28 16:06 | CASEMGMT ---
Face to Face with patient for initial transition planning/care coordination assessment. RN AZALIA introduced self and role at [facility], pt voices understanding and consents to assessment at this time. Pt sitting up in bed in no distress at this time. Pt A/O x4 at this time and answers all questions appropriately at this time. Care providers, pharmacy, and demographics verified. See attached link. Pt voices no further concerns/needs at this time. Advised pt to ask for CM if any further questions/concerns/needs arise, voices understanding. CM to follow for any further discharge planning/needs. PLAN: [place] VERONICA VIEYRA
--- NOTE | 2017-09-28 16:07 | PCM.DC ---
- Discharge Diagnoses Current Active Problems: Current Active and Chronic Problems Chest pain (Acute) You will use the following diet at home:: Calorie/Carbohydrate Controlled (specify 1200, 1400, etc), Cardiac Your food should be the consistency of: Regular Your liquids should be the consistency of: Regular/Thin Discharge Activity: Return to Normal Activity Call your doctor if your incision/area has: Continuous Slow Oozing, Sudden Increased Bleeding, Increased Pain/ Swelling, Increased Redness Call your doctor if you observe: Fever of 101 or Higher, Shortness of breath, Dizziness, Fainting spells, Swelling in the ankles Additional Instructions: The cath showed that the stents are patent and the chest pain that you are experiencing is not due to any blocked arteries. The heart rhythm is good BUT, the oxygen saturation drops at night when you are sleeping. It would be a good idea to get your CPAP repaired because this will definitely help with the daytime drowsiness and can also help you think and focus better. If you decide you would like to see a pulmonary doctor in [place] then I would advise you follow up with Dr. Zak Law or Dr. Jesus Sánchez......their office is in the hospital. Allergies/Adverse Reactions: Allergies donepezil [From Aricept] Adverse Reaction (Verified 09/28/17 00:44) Other meperidine [From Demerol] Adverse Reaction (Verified 09/28/17 00:44) Other Medications to take at Discharge Aspirin E.C. [Ecotrin] 81 mg PO DAILY@0800 04/30/17 BuPROPion [Wellbutrin] 75 mg PO BID 04/30/17 Carvedilol [Coreg (Beta Radha)] 12.5 mg PO BID 04/30/17 Clopidogrel Bisulfate [Clopidogrel] 75 mg PO DAILY 04/30/17 Escitalopram Oxalate [Lexapro] 20 mg PO DAILY 04/30/17 Insulin Detemir [Levemir] 30 unit SQ BREAKFAST 04/30/17 Insulin Detemir [Levemir] 60 unit SQ QHS 04/30/17 Insulin Lispro [Humalog] 30 unit SC BREAKFAST 04/30/17 Insulin Lispro [Humalog] 30 unit SC LUNCH 04/30/17 Insulin Lispro [Humalog] 33 unit SC DINNER 04/30/17 Lisinopril [Zestril] 5 mg PO DAILY 04/30/17 Melatonin 3 mg PO QHS 04/30/17 Oxybutynin [Ditropan] 5 mg PO BID 04/30/17 Pantoprazole Sodium [Protonix] 40 mg PO DAILY 04/30/17 Pravastatin [Pravachol] 40 mg PO QHS 04/30/17 Pregabalin [Lyrica] 75 mg PO BID 04/30/17 Terazosin HCl 2 mg PO QHS 04/30/17 Trazodone HCl 50 mg PO QHS 04/30/17 Nitrofurantoin Macrocrystals [Macrobid] 100 mg PO Q12 09/27/17 Nitroglycerin [Nitrostat] 0.4 mg SUBLINGUAL Q5M PRN tablet 09/28/17 Primary Care Physician: Reggie Jerez MD [Primary Care Provider] - Please follow up with your Primary Care Physician in: 1 week Proposed Discharge Date: 09/28/17
--- NOTE | 2017-09-28 16:36 | PCM.DC.SUM ---
Discharge Date and Diagnosis Date of Admission: 09/27/17 Date of Discharge: 09/28/17 - Primary Discharge Diagnosis Active and Suspected Problems Chest pain (Acute) - non-cardiac - Secondary Discharge Diagnosis Chronic Problems CKD (chronic kidney disease) (Chronic) stage 2-3 Morbid Obesity (Chronic) Dyslipidemia (Chronic) Carotid artery disorder (Chronic) CAD (coronary artery disease) (Chronic) Essential (primary) hypertension (Chronic) DM2 (diabetes mellitus, type 2) (Chronic) - not adequately controlled TASHIA - her CPAP is broken and she has not been wearing recently Hospital Course and Treatment Imaging Results: Clinical Impression(s) from Imaging Studies Chest X-Ray 09/27/17 20:15 IMPRESSION: Normal x-ray examination of the chest. Electronically Signed: Terrell Jimenez MD at 20:46 EST , Service support , Dr. Titus Wright-[facility] Operations: None Procedures: Cardiac catheterization Summary of Care Provided: Patient is a 72-year-old female with a past medical history of chronic renal failure, dyslipidemia, morbid obesity, carotid artery stenosis, CAD with hx of multiple stents, hypertension and diabetes mellitus type 2 who presented to the emergency department at [facility] on 09/27/2017 complaining of chest pain. The onset of the chest pain was at rest and after a total of 4 NTG the pain began to subside but, then intensified in the ER. The initial troponin in the emergency room was 0.05. She was admitted to a monitored bed on PCU and Dr. Wright was consulted. Serial cardiac enzymes were negative. Chest x-ray revealed no evidence of ST segment elevation or significant ST or T-wave changes. Dr. Wright recommended a cardiac catheterization and the patient was agreeable. The catheterization revealed mild coronary artery disease with no stenosis. She drops her oxygen saturations while sleeping and she has a CPAP unit at home but has not been using for a few weeks because the mask was broken. She c/o daytime drowsiness and she gets confused at times. She was Prescribed CPAP by a physician in [place] and the pt is now living in [place] with her dtr. I suggested she follow up with Dr. Sánchez or Dr. Law if she would prefer to get her care transferred to [place] for convenience. She was discharged home on 09/28/2017 and was advised to follow-up with Dr. Hernandez Jerez in the office in 1 week. This note was generated with [employer] dictation software. It may contain incorrect words, spelling, and punctuation that were not noted in checking the note before signing. Discharge Activity: Return to Normal Activity Call your doctor if your incision/area has: Continuous Slow Oozing, Sudden Increased Bleeding, Increased Pain/ Swelling, Increased Redness Call your doctor if you observe: Fever of 101 or Higher, Shortness of breath, Dizziness, Fainting spells, Swelling in the ankles Home Medications: Medications to take at Discharge Aspirin E.C. [Ecotrin] 81 mg PO DAILY@0800 04/30/17 BuPROPion [Wellbutrin] 75 mg PO BID 04/30/17 Carvedilol [Coreg (Beta Radha)] 12.5 mg PO BID 04/30/17 Clopidogrel Bisulfate [Clopidogrel] 75 mg PO DAILY 04/30/17 Escitalopram Oxalate [Lexapro] 20 mg PO DAILY 04/30/17 Insulin Detemir [Levemir] 30 unit SQ BREAKFAST 04/30/17 Insulin Detemir [Levemir] 60 unit SQ QHS 04/30/17 Insulin Lispro [Humalog] 30 unit SC BREAKFAST 04/30/17 Insulin Lispro [Humalog] 30 unit SC LUNCH 04/30/17 Insulin Lispro [Humalog] 33 unit SC DINNER 04/30/17 Lisinopril [Zestril] 5 mg PO DAILY 04/30/17 Melatonin 3 mg PO QHS 04/30/17 Oxybutynin [Ditropan] 5 mg PO BID 04/30/17 Pantoprazole Sodium [Protonix] 40 mg PO DAILY 04/30/17 Pravastatin [Pravachol] 40 mg PO QHS 04/30/17 Pregabalin [Lyrica] 75 mg PO BID 04/30/17 Terazosin HCl 2 mg PO QHS 04/30/17 Trazodone HCl 50 mg PO QHS 04/30/17 Nitrofurantoin Macrocrystals [Macrobid] 100 mg PO Q12 09/27/17 Nitroglycerin [Nitrostat] 0.4 mg SUBLINGUAL Q5M PRN tablet 09/28/17 Primary Care Physician: Reggie Jerez MD [Primary Care Provider] - Please follow up with your Primary Care Physician in: 1 week Minutes spent on discharge:: 35 Patient Condition:: Good Meaningful Use Info Meaningful Use Diagnoses (Choose all that apply): None applicable Code Visit Inpatient E&M: 78795 Disch Hosp
--- NOTE | 2017-09-28 16:46 | NURSING ---
THIS RN TAKING OVER CARE OF PT AT THIS TIME.
== END 2017-09-28 18:24 | disposition home or self-care (01) ==
LOC: ED 23:06 → PCU 09-28 00:12
PROVIDERS: Internal Medicine Cardiovascular Disease; Admitting Provider Family Medicine; Emergency Provider Emergency Medicine; Family Provider Family Medicine; PCP Family Medicine; Visit Provider Internal Medicine
DX: R07.89 Other chest pain (principal); I25.10 Atherosclerotic heart disease of native coronary artery without angina pectoris; E78.5 Hyperlipidemia, unspecified; E11.22 Type 2 diabetes mellitus with diabetic chronic kidney disease; I12.9 Hypertensive chronic kidney disease with stage 1 through stage 4 chronic kidney disease, or unspecified chronic kidney disease; N18.3 Chronic kidney disease, stage 3 (moderate); E66.01 Morbid (severe) obesity due to excess calories; Z68.41 Body mass index [BMI] 40.0-44.9, adult; Z71.3 Dietary counseling and surveillance; Z95.5 Presence of coronary angioplasty implant and graft; Z79.899 Other long term (current) drug therapy; Z79.02 Long term (current) use of antithrombotics/antiplatelets; Z79.4 Long term (current) use of insulin; R11.0 Nausea; I25.2 Old myocardial infarction; F17.200 Nicotine dependence, unspecified, uncomplicated; G47.33 Obstructive sleep apnea (adult) (pediatric); R06.00 Dyspnea, unspecified
CPT/HCPCS: 36415; 71045; 80048; 80053; 80061; 81001; 82248; 82962; 83036; 83735; 83880; 84443; 84484; 85025; 85610; 85730; 93005; 93306; 93458; 96360; 96361; 99152; 99153; 99218; 99285; J7030; Q9967; C1769; C1894; G0378

== ENCOUNTER 2018-04-24 21:12 | Observation (INO) | payer MEDICARE, SELFPAY ==
[2018-04-24 21:13] VITALS: BP 148/126; PULSE 83; RESP 15; TEMP 36.8; O2SAT 95; BMI 39.8
--- NOTE | 2018-04-24 22:06 | CT_ITS ---
STUDY: CT ABDOMEN AND PELVIS WITHOUT CONTRAST REASON FOR EXAM: Female, 73 years old. Abdominal pain. RADIATION DOSAGE (If Supplied By Facility): CTDIvol = ( 23.49 ) mGy, DLP = ( 1144.48 ) mGycm TECHNIQUE: Transaxial images were obtained from the dome of the diaphragm to the symphysis pubis without oral contrast, and without intravenous contrast. Sagittal and coronal images were reconstructed. Individualized dose optimization techniques were used for this CT. COMPARISON: None. FINDINGS: Evaluation of the abdominal viscera is limited in the absence of intravenous contrast. The visualized lung bases are clear. The visualized portions of the heart and pericardium are within normal limits. There are coronary artery calcifications noted. The patient is status post cholecystectomy. The liver demonstrates an unremarkable unenhanced appearance. The spleen is normal in size. The pancreas demonstrates an unremarkable unenhanced appearance. The adrenal glands are within normal limits. There are no renal or ureteral stones. There is no hydronephrosis. There are surgical clips noted in the upper abdomen. Normal visualized stomach. There is no bowel obstruction or inflammation. The appendix is not visualized, but there are no findings to suggest acute appendicitis. There is a small ventral hernia which contains nonobstructed bowel. The aorta is normal in caliber. There are atherosclerotic calcifications noted in the aorta. There is no abdominal or pelvic free air, free fluid, fluid collection or lymphadenopathy. There are no destructive osseous lesions. CT/Abdomen/Pelvis without Cont IMPRESSION: Study limited without contrast. No bowel obstruction or inflammation. Small ventral hernia which contains nonobstructed bowel. No urinary calculi. No hydronephrosis. Atherosclerosis and coronary artery disease. Electronically Signed: Anish Cordoba, at 23:40 EDT Tel , Service support ,
[2018-04-24] MEDS: Ondansetron 4 MG/2 ML Vial IV (22:42)
[2018-04-24] MEDS: 0.9% Normal Saline 1,000 ML 1000 ML IV (22:42)
[2018-04-24 22:45] LABS: Absolute Lymphocyte Count 1.77 X10^3/ul (0.83-4.51); Absolute Neutrophil Count 6.4 X10^3/uL (2.0-7.7); Basophil# 0.03 X10^3/uL; Basophil% 0.3 % (0-1); Eosinophils% 2.3 % (0-5); Hematocrit 40.1 % (37-47); Hemoglobin 12.5 g/dl (12.0-15.0); Lymphocyte # 1.77 X10^3/ul (4.0); Lymphocyte % 19.9 % (19-41); Mean Corp Hgb Conc 31.2 g/gl (32-36); Mean Corpuscular Hgb 25.5 pg (27.0-32.0); Mean Corpuscular Volume 81.8 fL (81-99); Mean Platelet Vol. 9.9 fl (6.2-12.0); Monocyte# 0.43 X10^3/uL; Monocyte% 4.8 % (0-10); Neutrophil # 6.44 X10^3/uL (2.7-7.7); Neutrophil % 72.6 % (47-70); Platelet Count 179 K/mm3 (150-450); RBC Distribution Width CV 14.4 % (11.6-14.6); RBC Distribution Width SD 43.1 fl (35.1-43.9); White Blood Count 8.9 K/mm3 (4.4-11.0)
[2018-04-24 22:46] LABS: POSITIVE COUNT NO; POSITIVE DIFFERENTIAL NO; POSITIVE MORPHOLOGY NO
[2018-04-24 22:57] LABS: International Normalized Ratio 0.9; Prothrombin Time (Protime)PT. 12.6 SECONDS (11.7-14.9)
[2018-04-24 23:11] LABS: Albumin, Serum 3.5 g/dL (3.2-5.0); BUN 16 mg/dL (7-18); BUN/Creat Ratio 14.7 RATIO (10-20); Creatinine, Serum 1.09 mg/dL (0.55-1.02); EST Glomerular Filtration Rate 52 mL/min (>60); Est Glom Filt Rate - Afr Amer 63 mL/min (>60); Estimated Creatinine Clearance 39.69 ml/min; Glucose 182 mg/dL (74-106); Protein, Total 6.9 g/dL (6.4-8.2)
[2018-04-24 23:12] LABS: AST(SGOT) 19 U/L (15-37); Alanine Aminotransfer ALT/SGPT 22 U/L (13-56); Alkaline Phosphatase 75 U/L (45-117); Anion Gap 6 (5-15); Calcium,Total 8.8 mg/dL (8.5-10.1); Chloride 105 mmol/L (98-107); Globulin 3.4 g/dL (2.2-4.2); Lipase 80 U/L (73-393); Potassium 3.8 mmol/L (3.5-5.1); Sodium Level 139 mmol/L (136-145)
--- NOTE | 2018-04-25 00:17 | ED.VISSUMM ---
- ER Visit Summary Date of Service: 04/25/18 Chief Complaint: Abdominal pain nausea vomiting and diarrhea History of Present Illness: The patient is a 73 F who presents with abdominal pain nausea vomiting and bright red blood per rectum. She has been having chronic diarrhea for 8-9 months and has had workup including laboratory studies and previous colonoscopy and stool studies. Most recently she was diagnosed with exocrine pancreatic insufficiency. She has been referred to a gastroenterology in [place]. Tonight however she developed worsening left lower abdominal pain nausea vomiting and had a single episode of bright red blood per rectum and felt lightheaded. This is never happened before. She is on Plavix but no full anticoagulation such as warfarin Xarelto Pradaxa. Physical Examination: Afebrile vitals are stable Heart regular rate and rhythm Lungs clear Abdomen soft nondistended she does have some fuse abdominal tenderness which is worse on the left side Alert Test Results: Labs unremarkable. CT the abdomen and pelvis limited due to lack of contrast but no definitive acute abnormality. Emergency Department Course and Treatment: Patient has remained hemodynamically stable. On my rectal exam she had brown stool. Hemoccult has been ordered but not yet resulted. I spoke to Dr. Wilson who would be willing to see the patient if needed in consult and noted that and that she began bleeding significantly again he would not do a colonoscopy at this point. I spoke to the hospitalist who agreed to admit. Treatment Plan: [] Disposition: Admit Impression: Abdominal pain GI bleed This note was generated with [employer] dictation software. It may contain incorrect words, spelling, and punctuation that were not noted in review of the chart prior to signing ED Disposition - Plan for ED Patient: Chief Complaint: Abd Pain Referrals: Reggie Jerez MD [Primary Care Provider] -
[2018-04-25 00:50] VITALS: BP 150/58; PULSE 77; RESP 15; O2SAT 93
[2018-04-25 01:24] VITALS: BP 168/65; PULSE 65; RESP 18; TEMP 36.7; O2SAT 94; BMI 40.2
[2018-04-25 02:03] VITALS: BMI 40.3
[2018-04-25] MEDS: 0.9% Normal Saline 1,000 ML 100 ML IV (02:19)
--- NOTE | 2018-04-25 02:53 | HP.PCM_ITS ---
Problem List (1) Bright red blood per rectum Status: Acute (2) CKD (chronic kidney disease) Status: Chronic Qualifiers: (3) Obesity Status: Chronic (4) Dyslipidemia Status: Chronic (5) CAD (coronary artery disease) Status: Chronic (6) Essential (primary) hypertension Status: Chronic (7) DM2 (diabetes mellitus, type 2) Status: Chronic History of Present Illness Date of Admission: 04/25/18 Chief Complaint: BRBPR The patient is a 73 year old F with a PMH as above presenting with 1 episode of BRBPR on the day of presentation to the ER. She is not lightheaded or dizzy and currently denies any abdominal pain. She states that she recently had a colonoscopy and had a few polyps removed. She had a BM earlier this evening which she described as loose and army green and there was bright red blood in the toilet and on the toilet paper. She has a h/o hemorrhoids. In the ER a stool occult was sent and negative for blood. She states that she was recently diagnosed with exocrine pancreatic insufficiency which is believed to be the cause of her chronic diarrhea and intermittent abdominal pain. She is not taking any medications for it as she was just diagnosed with it. She has a significant cardiac history with [address] abd/pelvis was negative. Past Medical History Past Medical History (Chronic Problems): Chronic Problems CKD (chronic kidney disease) (Chronic) Obesity (Chronic) Dyslipidemia (Chronic) Carotid artery disorder (Chronic) CAD (coronary artery disease) (Chronic) Essential (primary) hypertension (Chronic) DM2 (diabetes mellitus, type 2) (Chronic) Allergies donepezil [From Aricept] Adverse Reaction (Verified 04/24/18 21:18) Other meperidine [From Demerol] Adverse Reaction (Verified 04/24/18 21:18) Other Home Medications: Ambulatory Orders Medication Instructions Recorded Aspirin E.C. [Ecotrin] 81 mg PO DAILY@0800 04/30/17 Carvedilol [Coreg (Beta Radha)] 12.5 mg PO BID 04/30/17 Clopidogrel Bisulfate [Clopidogrel] 75 mg PO DAILY 04/30/17 Escitalopram Oxalate [Lexapro] 20 mg PO DAILY 04/30/17 Insulin Detemir [Levemir] 30 unit SQ BREAKFAST 04/30/17 Insulin Detemir [Levemir] 60 unit SQ QHS 04/30/17 Insulin Lispro [Humalog] 30 unit SC BREAKFAST 04/30/17 Insulin Lispro [Humalog] 30 unit SC LUNCH 04/30/17 Insulin Lispro [Humalog] 33 unit SC DINNER 04/30/17 Lisinopril [Zestril] 5 mg PO DAILY 04/30/17 Melatonin 3 mg PO QHS 04/30/17 Oxybutynin [Ditropan] 5 mg PO BID 04/30/17 Pantoprazole Sodium [Protonix] 40 mg PO DAILY 04/30/17 Pravastatin [Pravachol] 40 mg PO QHS 04/30/17 Pregabalin [Lyrica] 75 mg PO BID 04/30/17 Terazosin HCl 2 mg PO QHS 04/30/17 Trazodone HCl 50 mg PO QHS 04/30/17 buPROPion tablets [Wellbutrin 75 mg PO DAILY 04/30/17 tablets] Nitrofurantoin Macrocrystals 100 mg PO Q12 09/27/17 [Macrobid] Nitroglycerin [Nitrostat] 0.4 mg SUBLINGUAL Q5M PRN tablet 09/28/17 Ferrous Sulfate 325 mg PO DAILY 04/25/18 Surgical History: - - Cardiac stents x5 Smoking Status: Current some day smoker Alcohol: None Drugs: None - *Family History Maternal History Items: Heart Disease Review of Systems Constitutional: Denies: Chills, Fever, Weight Change HEENT: Denies: Head Aches, Sinus Congestion, Sinus Drainage Cardiovascular: Denies: Chest Pain, Palpitations Respiratory: Denies: Cough, Shortness of breath at rest, Sputum production Gastrointestinal: Reports: Abdominal Pain, Hematochezia. Denies: Nausea, Vomiting Genitourinary: Denies: Dysuria Musculoskeletal: Denies: Joint Pain, Joint Tenderness Skin: Denies: Rash, Wounds Neurological: Denies: Numbness, Tingling, Focal weakness Psychiatric: Denies: Anxiety, Depression Hematologic/ Lymphatic: Denies: Easy Bruising, Easy Bleeding VTE Information - Inpt Only VTE Present on Admission: No Patient Problems: Active and Suspected Problems Bright red blood per rectum (Acute) - Physical Exam General: Alert, Oriented x3, Cooperative, No apparent distress HEENT: Atraumatic, PERRLA, EOMI, Normocephalic Oral: Moist Mucosa Neck: Supple, No JVD Lungs: Clear to auscultation, Normal air movement, No rhonchi, No wheeze, No rales Cardiovascular: Regular rate, Regular Rhythm, Normal S1, Normal S2, No murmurs Abdomen: Soft, Non Tender, Non-Distended, No Hepato-splenomegaly Extremities: No edema, Capillary Refill Less than 3 Seconds Skin: No rashes, No breakdown Musculoskeletal: No Tenderness to Palpation of Joints or Extremities Neurological: Neuro grossly intact, Sensory exam intact to light touch and pain Psych/Mental Status: Normal Affect, Appropriate Vital Signs Temp Pulse Resp BP Pulse Ox 98.1 F 65 18 168/65 H 94 04/25/18 01:24 04/25/18 01:24 04/25/18 01:24 04/25/18 01:24 04/25/18 01:24 Oxygen Delivery Method Room Air Weight: 234 lb 9.149 oz Body Mass Index (BMI) 40.2 Assessment/Plan All Active Problems Chest pain (Acute) Bright red blood per rectum (Acute) UTI (urinary tract infection) (Acute) 1. Hematochezia - Likely secondary to her hemorrhoids - H/H is stable at 12, will hold asa and plavix until morning CBC - Given her stool occult is negative, she could probably be discharged home as all of her other complaints are chronic and being worked up as an outpatient - PPI IV can transition to her home PO dose at DC - ER discussed the case with surgery who did not feel, especially given her recent colonoscopy, that she would need to be acutely scoped, therefore I did not c/s surgery for this case 2. DM2 - C/w her home insulin dosing - SSI for coverage 3. HTN/CAD s/p stents/HLD - Can continue the ASA and plavix on DC if CBC remains stable as this is likely a hemorrhoidal bleed and not an UGI bleed - c/w CINTHIA-I, Coreg and cardura - c/w statin 4. GERD - stable - On IV PPI currently, transition back to home PPI on DC 5. Depression - Stable - c/w lexapro and wellbutrin 6. 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
[2018-04-25 02:56] LABS: Bedside Glucose 200 mg/dL (70-110)
[2018-04-25 06:33] LABS: Absolute Lymphocyte Count 2.31 X10^3/ul (0.83-4.51); Absolute Neutrophil Count 5.6 X10^3/uL (2.0-7.7); Basophil# 0.03 X10^3/uL; Basophil% 0.3 % (0-1); Eosinophil# 0.23 X10^3/uL; Eosinophils% 2.6 % (0-5); Hematocrit 36.1 % (37-47); Hemoglobin 11.4 g/dl (12.0-15.0); Lymphocyte # 2.31 X10^3/ul (4.0); Lymphocyte % 26.6 % (19-41); Mean Corp Hgb Conc 31.6 g/gl (32-36); Mean Corpuscular Hgb 26.1 pg (27.0-32.0); Mean Corpuscular Volume 82.6 fL (81-99); Mean Platelet Vol. 10.4 fl (6.2-12.0); Monocyte# 0.55 X10^3/uL; Monocyte% 6.3 % (0-10); Neutrophil # 5.55 X10^3/uL (2.7-7.7); Platelet Count 183 K/mm3 (150-450); RBC Distribution Width CV 14.4 % (11.6-14.6); Red Blood Count 4.37 M/mm3 (4.2-5.4); White Blood Count 8.7 K/mm3 (4.4-11.0)
[2018-04-25 06:36] LABS: POSITIVE COUNT NO; POSITIVE DIFFERENTIAL NO; POSITIVE MORPHOLOGY NO
[2018-04-25 06:52] LABS: Anion Gap 6 (5-15); BUN 15 mg/dL (7-18); BUN/Creat Ratio 15.2 RATIO (10-20); Calcium,Total 8.1 mg/dL (8.5-10.1); Chloride 109 mmol/L (98-107); Creatinine, Serum 0.98 mg/dL (0.55-1.02); EST Glomerular Filtration Rate 59 mL/min (>60); Est Glom Filt Rate - Afr Amer 71 mL/min (>60); Estimated Creatinine Clearance 44.15 ml/min; Glucose 188 mg/dL (74-106); Potassium 4.1 mmol/L (3.5-5.1); Sodium Level 142 mmol/L (136-145)
[2018-04-25] MEDS: Carvedilol 12.5 MG Tablet PO (08:23)
[2018-04-25] MEDS: Oxybutynin 5 MG Tablet PO (08:23)
[2018-04-25] MEDS: buPROPion 75 MG Tablet PO (08:23)
[2018-04-25] MEDS: Escitalopram Oxalate 20 MG Tablet PO (08:23)
[2018-04-25] MEDS: Pregabalin 75 MG Capsule PO (08:23)
[2018-04-25] MEDS: Lisinopril 5 MG Tablet PO (08:23)
[2018-04-25 08:30] VITALS: BP 172/67; PULSE 87; RESP 18; TEMP 37.1; O2SAT 98
[2018-04-25 09:36] LABS: Bedside Glucose 168 mg/dL (70-110)
[2018-04-25] MEDS: Insulin Lispro 100 UNIT/ML INSULN.PEN 30 UNIT SC ×2 (10:40→12:27)
[2018-04-25] MEDS: Insulin Lispro 100 UNIT/ML INSULN.PEN SQ ×2 (10:40→12:27)
[2018-04-25 11:04] LABS: Hematocrit 37.2 % (37-47); Hemoglobin 11.4 g/dl (12.0-15.0)
--- NOTE | 2018-04-25 11:45 | CASEMGMT ---
VERONICA VIEYRA Face to Face with patient for initial transition planning/care coordination assessment. RN AZALIA introduced self and role at [facility]. Patient lying in bed, alert and oriented. Patient willing to participate in assessment and is able to answer all questions appropriately. Care providers, pharmacy, and demographics verified. Patient has aide service through [employer]. Patient lives with daughter. Patient wishes to discharge home with resumption of aide services. Patient states she has no further needs or concerns at this time. CM to follow for discharge planning needs that may arise. Disposition Plan: Patient to discharge home with aide service, family support, and follow-up plans in place. Stacy ROBLES, RN, CM
--- NOTE | 2018-04-25 12:20 | CASEMGMT ---
Addendum entered by Stacy Lacey 04/25/18 14:47: SW placed a call to Chloé and left her a message that pt is being discharged today. Original Note: Social Work Note Pt's CM is Chloé at [facility]. CANDIE placed a call to Chloé [phone] and updated her on pt's admission into [facility] and discharge plans. Chloé states pt has emergency response button and has 33 hours a week of aide services through [facility] with pt's daughter being the aide. CANDIE updated RN CM Stacy Rmoo of this. Plan: Pt to discharge home with resumption of aide services Stacy Lacey SKILLED LABORER, INTERLOCKING AND SIGNAL MECHANIC
[2018-04-25] MEDS: Ferrous Sulfate 325 MG Tablet PO (12:26)
[2018-04-25 12:35] LABS: Bedside Glucose 302 mg/dL (70-110)
--- NOTE | 2018-04-25 13:51 | PCM.DC ---
- Discharge Diagnoses Current Active Problems: Current Active and Chronic Problems Bright red blood per rectum (Acute) You will use the following diet at home:: Calorie/Carbohydrate Controlled (specify 1200, 1400, etc) - 1800 ADA Your food should be the consistency of: Regular Your liquids should be the consistency of: Regular/Thin Discharge Activity: Return to Normal Activity Weight Bearing Status: Full weight bearing Allergies/Adverse Reactions: Allergies donepezil [From Aricept] Adverse Reaction (Verified 04/24/18 21:18) Other meperidine [From Demerol] Adverse Reaction (Verified 04/24/18 21:18) Other Medications to take at Discharge Aspirin E.C. [Ecotrin] 81 mg PO DAILY@0800 04/30/17 Carvedilol [Coreg (Beta Radha)] 12.5 mg PO BID 04/30/17 Clopidogrel Bisulfate [Clopidogrel] 75 mg PO DAILY 04/30/17 Escitalopram Oxalate [Lexapro] 20 mg PO DAILY 04/30/17 Insulin Detemir [Levemir] 30 unit SQ BREAKFAST 04/30/17 Insulin Detemir [Levemir] 60 unit SQ QHS 04/30/17 Insulin Lispro [Humalog] 30 unit SC BREAKFAST 04/30/17 Insulin Lispro [Humalog] 30 unit SC LUNCH 04/30/17 Insulin Lispro [Humalog] 33 unit SC DINNER 04/30/17 Lisinopril [Zestril] 5 mg PO DAILY 04/30/17 Melatonin 3 mg PO QHS 04/30/17 Oxybutynin [Ditropan] 5 mg PO BID 04/30/17 Pantoprazole Sodium [Protonix] 40 mg PO DAILY 04/30/17 Pravastatin [Pravachol] 40 mg PO QHS 04/30/17 Pregabalin [Lyrica] 75 mg PO BID 04/30/17 Terazosin HCl 2 mg PO QHS 04/30/17 Trazodone HCl 50 mg PO QHS 04/30/17 buPROPion tablets [Wellbutrin tablets] 75 mg PO DAILY 04/30/17 Nitrofurantoin Macrocrystals [Macrobid] 100 mg PO Q12 09/27/17 Nitroglycerin [Nitrostat] 0.4 mg SUBLINGUAL Q5M PRN tablet 09/28/17 Ferrous Sulfate 325 mg PO DAILY 04/25/18 Primary Care Physician: Reggie Jerez MD [Primary Care Provider] - Please follow up with your Primary Care Physician in: next week Test Results: Test results from this visit will be discussed in further detail at your follow-up appointment, if applicable.
--- NOTE | 2018-04-25 13:54 | DCINST_ITS ---
- Discharge Diagnoses Current Active Problems: Current Active and Chronic Problems Bright red blood per rectum (Acute) You will use the following diet at home:: Calorie/Carbohydrate Controlled ( specify 1200, 1400, etc) - 1800 ADA Your food should be the consistency of: Regular Your liquids should be the consistency of: Regular/Thin Discharge Activity: Return to Normal Activity Weight Bearing Status: Full weight bearing Allergies/Adverse Reactions: Allergies donepezil [From Aricept] Adverse Reaction (Verified 04/24/18 21:18) Other meperidine [From Demerol] Adverse Reaction (Verified 04/24/18 21:18) Other Medications to take at Discharge Aspirin E.C. [Ecotrin] 81 mg PO DAILY@0800 04/30/17 Carvedilol [Coreg (Beta Radha)] 12.5 mg PO BID 04/30/17 Clopidogrel Bisulfate [Clopidogrel] 75 mg PO DAILY 04/30/17 Escitalopram Oxalate [Lexapro] 20 mg PO DAILY 04/30/17 Insulin Detemir [Levemir] 30 unit SQ BREAKFAST 04/30/17 Insulin Detemir [Levemir] 60 unit SQ QHS 04/30/17 Insulin Lispro [Humalog] 30 unit SC BREAKFAST 04/30/17 Insulin Lispro [Humalog] 30 unit SC LUNCH 04/30/17 Insulin Lispro [Humalog] 33 unit SC DINNER 04/30/17 Lisinopril [Zestril] 5 mg PO DAILY 04/30/17 Melatonin 3 mg PO QHS 04/30/17 Oxybutynin [Ditropan] 5 mg PO BID 04/30/17 Pantoprazole Sodium [Protonix] 40 mg PO DAILY 04/30/17 Pravastatin [Pravachol] 40 mg PO QHS 04/30/17 Pregabalin [Lyrica] 75 mg PO BID 04/30/17 Terazosin HCl 2 mg PO QHS 04/30/17 Trazodone HCl 50 mg PO QHS 04/30/17 buPROPion tablets [Wellbutrin tablets] 75 mg PO DAILY 04/30/17 Nitrofurantoin Macrocrystals [Macrobid] 100 mg PO Q12 09/27/17 Nitroglycerin [Nitrostat] 0.4 mg SUBLINGUAL Q5M PRN tablet 09/28/17 Ferrous Sulfate 325 mg PO DAILY 04/25/18 Primary Care Physician: Reggie Jerez MD [Primary Care Provider] - Please follow up with your Primary Care Physician in: next week Test Results: Test results from this visit will be discussed in further detail at your follow- up appointment, if applicable.
--- NOTE | 2018-04-25 14:29 | CHAPLAIN ---
Type of Pastoral Visit _x__ Initial Visit ___ Follow-up Visit ___ On-call Visit ___ General Patient Visit ___ Spiritual Assessment ___ Family Conference ___ Bereavement ___ Rapid Response ___ Code Blue ___ Other (describe below) Pastoral Care Referral From _x__ Patient ___ Family ___ Nurse ___ Physician ___ Regulator Pin Inserter ___ Talent Coordinator ___ Other (describe below) Sacrament/Intervention _x__ Active listening ___ Anointing ___ Mormonism ___ Bereavement ___ Communion ___ Bailey exploration ___ _x__ Life review _x__ Prayer ___ Reconciliation ___ Sacrament of Sick _x__ Supportive presence ___ Wedding ___ Other (describe below) Pastoral Comments patient says she feels better than when she arrived; pt has had long few months of illness and has desire to find a cause and cure; pt admits to being impatient with her daughter with whom she makes her home; pt goal is to be kinder during times of illness and limitations; pt welcomes prayer support and visits from spiritual care
--- NOTE | 2018-04-25 15:06 | NURSING ---
spoke with pt daughter updated on discharge plan and doctor was available for any questions. family member denied needing to speak with doctor at this time. 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
[2018-04-25 15:07] VITALS: BP 181/78; PULSE 79; RESP 18; TEMP 37.1; O2SAT 98
--- NOTE | 2018-04-27 10:04 | DS.PCM_ITS ---
Discharge Date and Diagnosis Date of Admission: 04/25/18 Date of Discharge: 04/25/18 - Primary Discharge Diagnosis #1 bright red rectal bleeding-etiology unknown #2 type 2 diabetes #3 coronary artery disease - Secondary Discharge Diagnosis Chronic Problems CKD (chronic kidney disease) (Chronic) Obesity (Chronic) Dyslipidemia (Chronic) Carotid artery disorder (Chronic) CAD (coronary artery disease) (Chronic) Essential (primary) hypertension (Chronic) DM2 (diabetes mellitus, type 2) (Chronic) Hospital Course and Treatment Operations: None Procedures: None Summary of Care Provided: The patient is a 73 year old [facility] with chief complaint of bright red rectal bleeding. Patient also complained of nausea and vomiting. Workup in the emergency room included labs which reveal a hemoglobin of 12.5, creatinine was slightly elevated 1.09, blood sugar was elevated at 182. Rectal exam was done by the emergency room physician and brown stool was noted to be present but no melanotic stool. Is also no bright red blood on the stool. Patient was placed and observation status on [facility] 3, repeat labs revealed a small drop in her hemoglobin which I did not feel was significant. Patient had no rectal bleeding while she was in the hospital. We received her colonoscopy report which should have been done in March of this year, other than a small polyp that was removed she had no other pathology noted including no hemorrhoids and no diverticulosis. The etiology of the patient's bright red rectal bleeding was unknown, I felt it was possible patient may have had rectal fissures. On my examination, patient did not have obvious external hemorrhoids. On 04/25/18, patient was seen and examined and felt to be in stable condition for discharge home Discharge Activity: Return to Normal Activity Weight Bearing Status: Full weight bearing Home Medications: Medications to take at Discharge Aspirin E.C. [Ecotrin] 81 mg PO DAILY@0800 04/30/17 Carvedilol [Coreg (Beta Radha)] 12.5 mg PO BID 04/30/17 Clopidogrel Bisulfate [Clopidogrel] 75 mg PO DAILY 04/30/17 Escitalopram Oxalate [Lexapro] 20 mg PO DAILY 04/30/17 Insulin Detemir [Levemir] 30 unit SQ BREAKFAST 04/30/17 Insulin Detemir [Levemir] 60 unit SQ QHS 04/30/17 Insulin Lispro [Humalog] 30 unit SC BREAKFAST 04/30/17 Insulin Lispro [Humalog] 30 unit SC LUNCH 04/30/17 Insulin Lispro [Humalog] 33 unit SC DINNER 04/30/17 Lisinopril [Zestril] 5 mg PO DAILY 04/30/17 Melatonin 3 mg PO QHS 04/30/17 Oxybutynin [Ditropan] 5 mg PO BID 04/30/17 Pantoprazole Sodium [Protonix] 40 mg PO DAILY 04/30/17 Pravastatin [Pravachol] 40 mg PO QHS 04/30/17 Pregabalin [Lyrica] 75 mg PO BID 04/30/17 Terazosin HCl 2 mg PO QHS 04/30/17 Trazodone HCl 50 mg PO QHS 04/30/17 buPROPion tablets [Wellbutrin tablets] 75 mg PO DAILY 04/30/17 Nitrofurantoin Macrocrystals [Macrobid] 100 mg PO Q12 09/27/17 Nitroglycerin [Nitrostat] 0.4 mg SUBLINGUAL Q5M PRN tablet 09/28/17 Ferrous Sulfate 325 mg PO DAILY 04/25/18 Primary Care Physician: Reggie Jerez MD [Primary Care Provider] - Please follow up with your Primary Care Physician in: next week Disposition: Home Minutes spent on discharge:: 32 Patient Condition:: Stable Medical Necessity - Tobacco Use Smoking Status: Current some day smoker Meaningful Use Info Meaningful Use Diagnoses (Choose all that apply): None applicable Code Visit OBSV E&M: 41882 Observ/hosp same date L3
== END 2018-04-25 17:13 | disposition home or self-care (01) ==
LOC: ED 22:42 → MS3 04-25 00:29
PROVIDERS: Admitting Provider Family Medicine; Emergency Provider Emergency Medicine; Family Provider Family Medicine; PCP Family Medicine; Visit Provider Internal Medicine
DX: K62.5 Hemorrhage of anus and rectum (principal); I25.10 Atherosclerotic heart disease of native coronary artery without angina pectoris; E11.22 Type 2 diabetes mellitus with diabetic chronic kidney disease; I12.9 Hypertensive chronic kidney disease with stage 1 through stage 4 chronic kidney disease, or unspecified chronic kidney disease; N18.9 Chronic kidney disease, unspecified; E66.9 Obesity, unspecified; K21.9 Gastro-esophageal reflux disease without esophagitis; F32.9 Major depressive disorder, single episode, unspecified; K86.81 Exocrine pancreatic insufficiency; Z68.41 Body mass index [BMI] 40.0-44.9, adult; Z71.3 Dietary counseling and surveillance; E78.5 Hyperlipidemia, unspecified; R11.2 Nausea with vomiting, unspecified; Z79.4 Long term (current) use of insulin; Z79.899 Other long term (current) drug therapy; Z79.82 Long term (current) use of aspirin; Z79.02 Long term (current) use of antithrombotics/antiplatelets; Z95.5 Presence of coronary angioplasty implant and graft; F17.210 Nicotine dependence, cigarettes, uncomplicated
CPT/HCPCS: 36415; 74176; 80048; 80053; 82274; 82962; 83690; 85014; 85018; 85025; 85610; 96361; 96365; 96366; 96375; 97162; 97166; 99218; 99284; 99406; J7030; G0378; J2405

== ENCOUNTER 2018-04-28 17:47 | Emergency (ER) | payer MEDICARE, SELFPAY ==
[2018-04-28 17:48] VITALS: BP 220/92; PULSE 70; RESP 17; TEMP 37.1; O2SAT 97; BMI 39.8
--- NOTE | 2018-04-28 18:12 | US_ITS ---
STUDY: VENOUS DOPPLER ULTRASOUND - RIGHT LOWER EXTREMITY REASON FOR EXAM: Female, 73 years old. Right anterior calf redness with walking TECHNIQUE: Ultrasound evaluation of the deep vein system to include blankenship-scale imaging and compression was performed. Blankenship-scale imaging and Doppler sonographic evaluation, including duplex spectral analysis and qualitative color flow sonography, was performed. COMPARISON: None. FINDINGS: Common Femoral Vein: Normal compression, spontaneity and augmentation. Normal color Doppler. Common Femoral Vein/Greater Saphenous Junction: Normal compression, spontaneity and augmentation. Normal color Doppler. Deep Femoral Vein: Normal compression, spontaneity and augmentation. Normal color Doppler. Femoral Proximal: Normal compression, spontaneity and augmentation. Normal color Doppler. Femoral Middle: Normal compression, spontaneity and augmentation. Normal color Doppler. Femoral Distal: Normal compression, spontaneity and augmentation. Normal color Doppler. Popliteal Vein: Normal compression, spontaneity and augmentation. Normal color Doppler. Posterior Tibial Vein: Normal compression, spontaneity and augmentation. Normal color Doppler. Peroneal Vein: Normal compression, spontaneity and augmentation. Normal color Doppler. US/Venous Duplex Imag/Limited/Uni IMPRESSION: Normal venous Doppler ultrasound of the lower extremity. Electronically Signed: Néstor Tinajero DO at 19:04 EDT Tel , Service support ,
--- NOTE | 2018-04-28 19:02 | ED.DCSUM_ITS ---
- ER Visit Summary Date of Service: 04/28/18 Chief Complaint: [Right leg pain] History of Present Illness: The patient is a 73 F [presents the emergency department complaint of right leg pain that started a month and a half ago. Patient states pain is worse with standing and walking. She describes the pain is in her foot but then radiates up her entire leg. Patient denies any falls or trauma. She denies any significant back pain although she states she chronically has some back pain. Patient was instructed by her primary care physician to come in and get evaluated for a blood clot as patient has had a blood clot in that right leg in the past. Patient also has a history of coronary artery disease, diabetes, hypertension, high cholesterol, and history of abdominal wall mass.] Physical Examination: [HEENT-PERRLA, EOMI. Cranial nerves II through XII grossly intact. TMs clear. Mucous membranes moist. No adenopathy. Cardiovascular-regular rate and rhythm without murmur or ectopy Lungs-clear to auscultation, chest wall stable without crepitus or subcu emphysema Abdomen-normoactive bowel sounds, soft, nontender, no rebound or rigidity, no peritoneal signs. Back exam-no significant tenderness on the thoracic or lumbar spine. Patient has negative straight leg raises. Deep tendon reflexes are plus 2 out of 4 bilaterally at the patella and Achilles. Patient has normal L5 extension. Patient has normal sensation to light touch. Extremities-intact ?4, normal range of motion, normal pulses, atraumatic]. I cannot reproduce patient's pain on palpation. Patient has normal pulses. There is no evidence for cellulitis. Test Results: [Venous duplex of the right lower extremity obtained was negative for DVT.] Emergency Department Course and Treatment: [] Treatment Plan: [Patient will be given prescription for [place] for pain. Advised to follow-up with primary care physician in 5-7 days.] Disposition: [Discharged home in stable condition] Impression: Right leg pain-etiology uncertain] This note was generated with [employer] dictation software. It may contain incorrect words, spelling, and punctuation that were not noted in review of the chart prior to signing ED Disposition - Plan for ED Patient: Chief Complaint: Lower Extremity Injury Referrals: Reggie Jerez MD [Primary Care Provider] -
--- NOTE | 2018-04-28 19:02 | ED.DEP ---
ED Disposition - Plan for ED Patient: Chief Complaint: Lower Extremity Injury Instructions: ED Knee Pain [facility] Prescriptions: Hydrocodone/Acetaminophen [[place] 5-325 Tablet] 1 - 2 ea PO 4X/DAY PRN PRN 5 Days #20 tab PRN Reason: Pain Referrals: Reggie Jerez MD [Primary Care Provider] - Additional Instructions: the cause of your pain is unknow. Follow up with your doctor.
[2018-04-28 19:07] VITALS: PULSE 63; O2SAT 95
== END 2018-04-28 19:11 | disposition home or self-care (01) ==
PROVIDERS: Emergency Provider Emergency Medicine; Family Provider Family Medicine; PCP Family Medicine
DX: M79.604 Pain in right leg (principal); I25.10 Atherosclerotic heart disease of native coronary artery without angina pectoris; I10 Essential (primary) hypertension; E78.00 Pure hypercholesterolemia, unspecified; E11.9 Type 2 diabetes mellitus without complications; Z72.0 Tobacco use; Z86.718 Personal history of other venous thrombosis and embolism
CPT/HCPCS: 93971; 99282

== ENCOUNTER 2018-07-25 17:55 | Emergency (ER) | payer MEDICARE, SELFPAY ==
[2018-07-25 17:58] VITALS: BP 140/58; BP 155/66; PULSE 63; PULSE 69; RESP 18; TEMP 36.8; O2SAT 96; O2SAT 97; BMI 39.9
[2018-07-25 18:06] LABS: Bedside Glucose 142 mg/dL (70-110)
--- NOTE | 2018-07-25 18:12 | ED.DCSUM_ITS ---
- ER Visit Summary Date of Service: 07/25/18 Chief Complaint: [] Low blood sugar currently no complaints blood sugar 140 history of insulin for diabetes mellitus History of Present Illness: The patient is a 73 F [] patient has history of insulin dependent diabetes mellitus who basically today had a blood sugar around 60 she ate her blood sugar was about 130 later the family checked her blood sugar was about 100 they probably spoke with some outpatient provider who told him to have her brought to the hospital on arrival to the ED she is awake alert with no complaints her blood sugar was 140 Days no fever no cough no chest pain abdominal pain she is able to get up today and go about her normal daily activities she indicates she does not normally check her blood sugars her family might do so for her we will keep a close eye on her, but she woke today at her baseline she did not eat until 4:00 this afternoon but she believes she took her insulin sometime in the a.m. after she woke, she indicates she is on 2 types of insulin when his Levemir she believes she takes a second type of insulin but she is not sure no history at this time, She believes she gets an injection of Levemir in the morning when she wakes in an injection of insulin in the evening This time again she has no complaints she is hungry and wants to eat Physical Examination: [] 155/65 afebrile General, no distress resting comfortably HEENT is generally unremarkable The neck is supple no adenopathy Cardiovascular, regular rate and rhythm Lungs, clear bilateral Abdomen, soft nontender Extremities, bilateral edema that is chronic Neurologic, awake alert answering questions appropriately moving all 4 extremities We suggest the patient we obtain IV lab workup etc. other ED evaluation she declined that she states she simply is hungry she wants to eat at this time she is awake and alert with no complaints we will provide her meal tray check her blood sugars as well as its in the normal range we will discussed with the family the patient is desirous to be discharged home as tomorrow is [place] At this time from what the patient states she basically gets an injection of insulin the evening at bedtime, they do not normally check her blood sugar, then she woke she did not eat until 4 PM but possibly took another dose of insulin sometime in the morning I will try to asked the family to keep a closer eye on her blood sugar measurements and coordinate her insulin injections with her eating habits Test Results: [] Emergency Department Course and Treatment: [] Family is present we reviewed all the above with him they agree they will monitor her blood sugar adjust her insulin dosing, her blood sugar is 160 after she ate she continues to have no complaints of daughter reports she frequently gets UTIs and wants to know if we can check for UTI I explained that the patient declined any workup she will discuss all the above with her mother if the patient consents to cath as this is the only way to get a clean sample by history we will check a UA for signs of UTI she will be treated with Bactrim, but again the family is comfortable discharge home the patient wants to be discharged home tomorrow is [place] she has no complaints and she is resting calmly in the bed Treatment Plan: [] Disposition: [] Home stable declined admission or ED workup Impression: [] Insulin-dependent diabetes mellitus, hypoglycemia resolved, poor compliance with diabetic treatment regimen This note was generated with [employer] software. It may contain incorrect words, spelling, and punctuation that were not noted in review of the chart prior to signing ED Disposition - Plan for ED Patient: Chief Complaint: General Illness Referrals: Reggie Jerez MD [Primary Care Provider] -
[2018-07-25 19:08] VITALS: BP 165/41
[2018-07-25 19:11] LABS: Bedside Glucose 224 mg/dL (70-110)
[2018-07-25 19:52] LABS: Mucous, Urine 0 SEEN /hpf (<or=2+); Red Blood Cells-Urine 0 SEEN /hpf (0-5); Squamous Epithelial Cells - UA 0 SEEN /hpf (5-10)
[2018-07-25 19:58] LABS: Color, Urine Yellow (Yellow); Glucose, Dipstick Normal (Normal); Ketone-Dipstick Negative (Negative); Leukocyte Esterase-Dipstick 25 /ul (Negative); Nitrite-Dipstick Negative (Negative); Occult Blood-Urine Negative /ul (Negative); Protein-Dipstick Negative (Negative); Urine Bilirubin Dipstick Negative (Negative); Urine Clarity Clear (Clear); Urine Urobilinogen Normal (Normal)
[2018-07-25 20:05] LABS: White Blood Cells 5-10 SEEN /hpf (0-5)
[2018-07-25 20:06] LABS: Bacteria 2+ /hpf (None Seen)
--- NOTE | 2018-07-25 20:25 | ED.DEP ---
ED Disposition - Plan for ED Patient: Chief Complaint: General Illness Instructions: ED UTI Cystitis Female, Hypoglycemia (Low Blood Sugar) Prescriptions: Smz/Tmp Ds [Bactrim Ds] 1 tab PO BID #14 tab Referrals: Reggie Jerez MD [Primary Care Provider] -
--- NOTE | 2018-07-25 20:26 | ED.DEP ---
ED Disposition - Plan for ED Patient: Chief Complaint: General Illness Instructions: Hypoglycemia (Low Blood Sugar), ED UTI Cystitis Female Prescriptions: Smz/Tmp Ds [Bactrim Ds] 1 tab PO BID #14 tab Referrals: Reggie Jerez MD [Primary Care Provider] -
[2018-07-25] MEDS: Smz/Tmp Ds Tablet 1 TABLET PO (20:31)
[2018-07-25 20:32] VITALS: BP 178/70; PULSE 81; RESP 18
== END 2018-07-25 21:27 | disposition home or self-care (01) ==
PROVIDERS: Emergency Provider Emergency Medicine; Family Provider Family Medicine; PCP Family Medicine
DX: E10.649 Type 1 diabetes mellitus with hypoglycemia without coma (principal); Z79.4 Long term (current) use of insulin; N39.0 Urinary tract infection, site not specified
CPT/HCPCS: 81001; 82962; 87077; 87086; 87088; 87186; 99284

== ENCOUNTER 2018-09-24 01:00 | Inpatient (IN) | payer MEDICARE, SELFPAY ==
[2018-09-24] VITALS (16 sets, daily range): BP systolic 96–185; BP diastolic 46–71; PULSE 80–118; RESP 15–33; TEMP 36.4–39.3; O2SAT 92–99; BMI 35.3; BMI 34.8
--- NOTE | 2018-09-24 01:11 | CT_ITS ---
STUDY: CT BRAIN WITHOUT CONTRAST REASON FOR EXAM: Female, 73 years old. Confusion and altered LOC RADIATION DOSAGE (If Supplied By Facility): CTDIvol = ( 44.99 ) mGy, DLP = ( 812.98 ) mGycm TECHNIQUE: Transaxial CT imaging of the brain was performed without administration of intravenous contrast material. Individualized dose optimization techniques were used for this CT. COMPARISON: None. FINDINGS: Normal soft tissue structures. Hyperostosis frontalis interna. Bilateral lens replacements. Normal size ventricles and extra-axial spaces for the patient's age. There are areas of decreased attenuation within the white matter tracts of the supratentorial brain, consistent with microvascular disease changes. Normal age-related changes of the basal ganglia. Normal brainstem. Normal cerebellum. There is no intracranial hemorrhage. There are no findings of an acute ischemic infarction. Right ethmoid sinus disease. Mild left mastoid sinus disease. CT/Brain/Head without Contrast IMPRESSION: No CT evidence of acute infarct or hemorrhage. If there is clinical concern for hyperacute ischemia that is not evident by CT, MRI should be considered if possible. Electronically Signed: Arun Fonseca MD at 3:18 EST Tel , Service support ,
--- NOTE | 2018-09-24 01:11 | CT_ITS ---
STUDY: CT ABDOMEN AND PELVIS WITHOUT CONTRAST REASON FOR EXAM: Female, 73 years old. Fever and right-sided abdominal tenderness RADIATION DOSAGE (If Supplied By Facility): CTDIvol = ( 23.36 ) mGy, DLP = ( 1190.35 ) mGycm TECHNIQUE: Transaxial images were obtained from the dome of the diaphragm to the symphysis pubis without oral contrast, and without intravenous contrast. Sagittal and coronal images were reconstructed. Individualized dose optimization techniques were used for this CT. COMPARISON: 04/24/2018 FINDINGS: Bibasilar atelectasis. The visualized portions of the heart are within normal limits. Hepatomegaly. There is non-visualization of the gallbladder, which may be secondary to either contraction or a prior cholecystectomy. Normal spleen. Normal pancreas. Left upper quadrant clips. Normal bilateral adrenal glands. Normal right kidney. Normal left kidney. Normal visualized stomach. Normal small intestine. The appendix is visualized and appears normal. Normal abdominal aorta. Normal inferior vena cava. Normal retroperitoneum. Alvarez catheter in the bladder. Anterior abdominal wall hernia containing a portion of the transverse colon without mechanical obstruction. Normal osseous structures. CT/Abdomen/Pelvis without Cont IMPRESSION: Anterior abdominal wall hernia containing a portion of the transverse colon without mechanical obstruction. No evidence of acute appendicitis or acute obstructive uropathy. Hepatomegaly. Electronically Signed: Arun Fonseca MD at 3:24 EST Tel , Service support ,
--- NOTE | 2018-09-24 01:12 | EKG12_ITS ---
Test Reason : DYSRHYTMIA Blood Pressure : / mmHG Vent. 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
--- NOTE | 2018-09-24 01:20 | RAD_ITS ---
STUDY: X-RAY CHEST REASON FOR EXAM: Female, 73 years old. Fever TECHNIQUE: Single frontal view of the chest. COMPARISON: 09/27/2017 FINDINGS: Bibasilar atelectasis. There is no demonstrated pleural abnormality. Normal size heart. Normal mediastinum and estephania. Normal visualized pulmonary arteries. Normal visualized aortic arch and descending thoracic aorta. Normal visualized thoracic spine. Normal visualized ribs, clavicles, and shoulders. There is no demonstrated abnormality of the visualized soft tissue structures of the upper abdomen. RAD/Chest 1 View (Portable) IMPRESSION: Bibasilar atelectasis. Electronically Signed: Arun Fonseca MD at 2:05 EST Tel , Service support ,
[2018-09-24] MEDS: 0.9% Normal Saline 1,000 ML IV.SOLN. 1000 ML IV (01:25)
[2018-09-24 01:33] LABS: Absolute Lymphocyte Count 0.46 X10^3/ul (0.83-4.51); Absolute Neutrophil Count 8.4 X10^3/uL (2.0-7.7); Basophil# 0.01 X10^3/uL; Basophil% 0.1 % (0-1); Eosinophil# 0.02 X10^3/uL; Eosinophils% 0.2 % (0-5); Hematocrit 40.9 % (37-47); Hemoglobin 12.9 g/dl (12.0-15.0); Lymphocyte # 0.46 X10^3/ul (4.0); Mean Corp Hgb Conc 31.5 g/gl (32-36); Mean Corpuscular Hgb 26.4 pg (27.0-32.0); Mean Corpuscular Volume 83.6 fL (81-99); Mean Platelet Vol. 9.9 fl (6.2-12.0); Monocyte# 0.35 X10^3/uL; Monocyte% 3.8 % (0-10); Neutrophil # 8.38 X10^3/uL (2.7-7.7); Neutrophil % 90.6 % (47-70); Platelet Count 141 K/mm3 (150-450); RBC Distribution Width CV 13.8 % (11.6-14.6); RBC Distribution Width SD 42.2 fl (35.1-43.9); Red Blood Count 4.89 M/mm3 (4.2-5.4); White Blood Count 9.3 K/mm3 (4.4-11.0)
[2018-09-24 01:34] LABS: Differential Indicated SCAN CRITERIA MET; POSITIVE COUNT NO; POSITIVE DIFFERENTIAL YES; POSITIVE MORPHOLOGY NO
[2018-09-24 01:36] LABS: International Normalized Ratio 1.2; Prothrombin Time (Protime)PT. 15.2 SECONDS (11.7-14.9)
[2018-09-24 01:37] LABS: Partial Thromboplast Time 27.4 Seconds (24.1-36.2)
[2018-09-24 01:46] LABS: ALB/GLOB Ratio 0.7 RATIO (0.9-2.4); AST(SGOT) 19 U/L (15-37); Alanine Aminotransfer ALT/SGPT 17 U/L (13-56); Albumin, Serum 2.8 g/dL (3.2-5.0); Alkaline Phosphatase 137 U/L (45-117); Anion Gap 8 (5-15); BUN 17 mg/dL (7-18); BUN/Creat Ratio 14.9 RATIO (10-20); Chloride 106 mmol/L (98-107); Creatinine, Serum 1.14 mg/dL (0.55-1.02); EST Glomerular Filtration Rate 50 mL/min (>60); Est Glom Filt Rate - Afr Amer 60 mL/min (>60); Estimated Creatinine Clearance 44.34 ml/min; Globulin 3.8 g/dL (2.2-4.2); Glucose 182 mg/dL (74-106); Potassium 3.8 mmol/L (3.5-5.1); Protein, Total 6.6 g/dL (6.4-8.2); Sodium Level 136 mmol/L (136-145)
[2018-09-24 01:49] LABS: Differential Comment SCANNED
[2018-09-24 01:57] LABS: Mucous, Urine 0 SEEN /hpf (<or=2+)
[2018-09-24 01:57] LABS: Lactic Acid 1.5 mmol/L (0.4-2.0)
[2018-09-24 02:01] LABS: Allen Test NEG; Base Excess -4 mmol/L (-2 to +2); Bicarbonate 21.3 mmol/L (22-26); Blood Gas Specimen Type ART; O2 Delivery Device Nasal Can; PO2 64 mmHG (75-100); SITE R Radial; SO2 92 % (95-99); Time Given 155; Total Carbon Dioxide 22 mmol/L; pCO2 34.9 mmHg (35-45); pH 7.39 (7.35-7.45)
[2018-09-24 02:16] LABS: Color, Urine Yellow (Yellow); Glucose, Dipstick Normal (Normal); Ketone-Dipstick Negative (Negative); Leukocyte Esterase-Dipstick 500 /ul (Negative); Nitrite-Dipstick Positive (Negative); Occult Blood-Urine 250 /ul (Negative); Protein-Dipstick 100 mg/dl (Negative); Specific Gravity, Urine 1.015 (1.002-1.030); Urine Bilirubin Dipstick Negative (Negative); Urine Clarity Sl. Cloudy (Clear); Urine Urobilinogen Normal (Normal)
[2018-09-24 02:18] LABS: White Blood Cells 50-100 SEEN /hpf (0-5)
[2018-09-24 02:19] LABS: Bacteria 2+ /hpf (None Seen); Red Blood Cells-Urine 25-50 SEEN /hpf (0-5); Squamous Epithelial Cells - UA 0-5 SEEN /hpf (5-10)
--- NOTE | 2018-09-24 03:53 | PCM.HP.STD ---
Problem List (1) Sepsis Status: Acute (2) UTI (urinary tract infection) Status: Acute History of Present Illness Date of Admission: 09/24/18 Chief Complaint: confusion The patient is a 73 year old F with a significant history of hypertension; diabetes mellitus; asthma/COPD; CAD status post stents; chronic urinary incontinence who presented to the emergency department because of confusion. Per paramedics patient was only alert to only her self and she had a fever of 102.3. Emergency department doctor reported patient became alert and oriented to herself and place while at the emergency department. At my examination, she reported 2-3 days history of malaise; chills; poor appetite and urinary symptoms of increased frequency of urination and dysuria. Also patient reports pain in her peggy-umbilical area. Emergency department patient was found to have a fever with a multiple temperature of 102.8. Her heart rate was elevated with a maximal rate of 118. Her respiratory rate was elevated with a maximal rate of 33. Her urinalysis was found to be abnormal. CT of abdominal and pelvis showed anterior abdominal wall hernia containing a portion of the transverse colon without mechanical obstruction. Emergency department doctor reported that patient had petechiae on her hands. At emergency department urine culture was obtained; blood culture x2 was obtained. Also rapid influenza flu was obtained which returned unremarkable. Patient received normal saline bolus and Zosyn was started for sepsis secondary to UTI. Past Medical History Past Medical History (Chronic Problems): Chronic Problems CKD (chronic kidney disease) (Chronic) Obesity (Chronic) Dyslipidemia (Chronic) Carotid artery disorder (Chronic) CAD (coronary artery disease) (Chronic) Essential (primary) hypertension (Chronic) DM2 (diabetes mellitus, type 2) (Chronic) Allergies donepezil [From Aricept] Adverse Reaction (Verified 09/24/18 01:07) Other meperidine [From Demerol] Adverse Reaction (Verified 09/24/18 01:07) Other metformin Adverse Reaction (Verified 09/24/18 01:13) Diarrhea Home Medications: Ambulatory Orders Medication Instructions Recorded Aspirin E.C. [Ecotrin] 81 mg PO DAILY@0800 04/30/17 Carvedilol [Coreg (Beta Radha)] 12.5 mg PO BID 04/30/17 Clopidogrel Bisulfate [Clopidogrel] 75 mg PO DAILY 04/30/17 Insulin Detemir [Levemir] 40 unit SQ QHS 04/30/17 Insulin Detemir [Levemir] 60 unit SQ BREAKFAST 04/30/17 Insulin Lispro [Humalog] 30 unit SC BREAKFAST 04/30/17 Insulin Lispro [Humalog] 30 unit SC LUNCH 04/30/17 Insulin Lispro [Humalog] 33 unit SC DINNER 04/30/17 Lisinopril [Zestril] 5 mg PO DAILY 04/30/17 Melatonin 3 mg PO QHS 04/30/17 Oxybutynin [Ditropan] 5 mg PO BID 04/30/17 Pantoprazole Sodium [Protonix] 40 mg PO DAILY 04/30/17 Pravastatin [Pravachol] 40 mg PO QHS 04/30/17 Pregabalin [Lyrica] 75 mg PO BID 04/30/17 Terazosin HCl 2 mg PO QHS 04/30/17 Trazodone HCl 50 mg PO QHS 04/30/17 buPROPion tablets [Wellbutrin 75 mg PO DAILY 04/30/17 tablets] Nitroglycerin [Nitrostat] 0.4 mg SUBLINGUAL Q5M PRN tablet 09/28/17 Ferrous Sulfate 325 mg PO DAILY 04/25/18 Acetaminophen 1,000 mg PO TID 09/24/18 Albuterol IH (ProAir) [Proair Hfa] 2 puff INHALATION Q4H PRN PRN 09/24/18 Benzonatate [Tessalon Perle] 100 mg PO TID 09/24/18 Florajen3 Capsule 460 mg PO DAILY 09/24/18 Fluoxetine HCl 40 mg PO DAILY 09/24/18 Fluticasone/Salmeterol [Advair 1 puff INHALATION BID 09/24/18 100-50 Diskus] Isosorbide Mononitrate [Isosorbide 30 mg PO DAILY 09/24/18 Mononitrate ER] Magnesium Oxide [Mag-Ox 400] 400 mg PO DAILY 09/24/18 Nystatin 1 applic TOPICAL BID 09/24/18 Viokace 20,880-78,300 Units Tb 78,300 units PO TID 09/24/18 Surgical History: - - Cardiac stents x5 Lives: With Family Smoking Status: Current every day smoker Alcohol: None - *Family History Maternal History Items: Heart Disease Review of Systems Constitutional: Reports: Chills, Fever. Denies: Weight Change HEENT: Denies: Head Aches, Sinus Congestion, Sinus Drainage Cardiovascular: Denies: Chest Pain, Palpitations Respiratory: Denies: Cough, Shortness of breath at rest, Sputum production Gastrointestinal: Denies: Abdominal Pain, Nausea, Vomiting Genitourinary: Reports: Dysuria, Frequency Musculoskeletal: Denies: Joint Pain, Joint Tenderness Skin: Denies: Rash, Wounds Neurological: Reports: Confusion. Denies: Focal weakness, Numbness, Tingling Psychiatric: Denies: Anxiety, Depression, Homicidal Ideations, Suicidal Ideations Hematologic/ Lymphatic: Denies: Easy Bruising, Easy Bleeding VTE Information - Inpt Only VTE Present on Admission: No VTE Mechan Device Prophylaxis: None VTE Pharm Prophylaxis ordered?: Yes Patient Problems: Active and Suspected Problems Sepsis (Acute) UTI (urinary tract infection) (Acute) - Physical Exam General: Alert, Oriented x3, Cooperative HEENT: Atraumatic, PERRLA, EOMI, Normocephalic Neck: Supple, No JVD, Negative Carotid Bruits Lungs: Rales - Left basilar, Tachypneic Cardiovascular: No murmurs, Tachycardic Abdomen: Bowel Sounds Present, Soft, Tender - Periumbilical area Extremities: No edema, Capillary Refill Less than 3 Seconds Skin: - - Petechia at bilateral dorsal hands Musculoskeletal: No Tenderness to Palpation of Joints or Extremities Neurological: Cranial nerves II-XII grossly intact Psych/Mental Status: Normal Affect, Appropriate Vital Signs Temp Pulse Resp BP Pulse Ox 102.0 F H 114 H 29 H 160/56 H 94 09/24/18 03:00 09/24/18 03:00 09/24/18 03:00 09/24/18 02:07 09/24/18 03:00 Oxygen Flow Rate (L/min) 2 Oxygen Delivery Method Nasal Cannula Weight: 105.3 kg Body Mass Index (BMI) 35.3 Finger Stick Blood Glucose 224 Microbiology Past 72 Hours 09/24/18 01:42 Influenza Types A,B Direct FA (CORINNE) - Final Mucosa - Nasopharyngeal Laboratory Tests Past 24 Hrs 09/24/18 09/24/18 09/24/18 01:10 01:10 01:10 WBC 9.3 RBC 4.89 Hgb 12.9 Hct 40.9 MCV 83.6 MCH 26.4 L MCHC 31.5 L RDW 13.8 RDW Differential 42.2 Plt Count 141 L MPV 9.9 Immature Gran % (Auto) 0.300 Neut % (Auto) 90.6 H Lymph % (Auto) 5.0 L Phelps % (Auto) 3.8 Eos % (Auto) 0.2 Baso % (Auto) 0.1 Absolute Neuts (auto) 8.4 H Absolute Lymphs (auto) 0.46 L Total Counted Not Reportable Differential Comment SCANNED PT 15.2 H INR 1.2 APTT 27.4 Specimen Type Sample Site pH Bicarbonate Actual POC Total CO2 Base Excess O2 Saturation ABG pCO2 ABG pO2 Derrick Test O2 Delivery Device Liter Flow Blood Gas Notified Whom Blood Gas Notified Time Sodium 136 Potassium 3.8 Chloride 106 Carbon Dioxide 22.0 Anion Gap 8 BUN 17 Creatinine 1.14 H Estim Creat Clear Calc 44.34 Est GFR (MDRD) Af Amer 60 Est GFR (MDRD) Non-Af 50 L BUN/Creatinine Ratio 14.9 Glucose 182 H Lactic Acid Calcium 8.0 L Total Bilirubin 1.10 H AST 19 ALT 17 Alkaline Phosphatase 137 H Troponin I 0.028 Total Protein 6.6 Albumin 2.8 L Globulin 3.8 Albumin/Globulin Ratio 0.7 L Urine Color Urine Clarity Urine pH Ur Specific Watkins Urine Protein Urine Glucose (UA) Urine Ketones Urine Occult Blood Urine Nitrite Urine Bilirubin Urine Urobilinogen Ur Leukocyte Esterase Urine RBC Urine WBC Ur Squamous Epith Cells Urine Bacteria Urine Mucus 09/24/18 09/24/18 09/24/18 01:10 01:50 01:53 WBC RBC Hgb Hct MCV MCH MCHC RDW RDW Differential Plt Count MPV Immature Gran % (Auto) Neut % (Auto) Lymph % (Auto) Phelps % (Auto) Eos % (Auto) Baso % (Auto) Absolute Neuts (auto) Absolute Lymphs (auto) Total Counted Differential Comment PT INR APTT Specimen Type ART Sample Site R Radial pH 7.39 Bicarbonate Actual 21.3 L POC Total CO2 22 Base Excess -4 L O2 Saturation 92 L ABG pCO2 34.9 L ABG pO2 64 L Derrick Test NEG O2 Delivery Device Nasal Can Liter Flow 2.0 Blood Gas Notified Whom ED Blood Gas Notified Time 155 Sodium Potassium Chloride Carbon Dioxide Anion Gap BUN Creatinine Estim Creat Clear Calc Est GFR (MDRD) Af Amer Est GFR (MDRD) Non-Af BUN/Creatinine Ratio Glucose Lactic Acid 1.5 Calcium Total Bilirubin AST ALT Alkaline Phosphatase Troponin I Total Protein Albumin Globulin Albumin/Globulin Ratio Urine Color Yellow Urine Clarity Sl. Cloudy Urine pH 5.0 Ur Specific Watkins 1.015 Urine Protein 100 H Urine Glucose (UA) Normal Urine Ketones Negative Urine Occult Blood 250 H Urine Nitrite Positive H Urine Bilirubin Negative Urine Urobilinogen Normal Ur Leukocyte Esterase 500 H Urine RBC 25-50 SEEN Urine WBC 50-100 SEEN Ur Squamous Epith Cells 0-5 SEEN Urine Bacteria 2+ Urine Mucus 0 SEEN Assessment/Plan All Active Problems Sepsis (Acute) UTI (urinary tract infection) (Acute) Chest pain (Resolved) Bright red blood per rectum (Acute) UTI (urinary tract infection) (Resolved) The patient is a 73 year old F with a significant history of hypertension; diabetes mellitus; asthma/COPD; CAD status post stents; chronic urinary incontinence who presented to the emergency department because of confusion and fever and found to have sepsis secondary to UTI. Sepsis secondary to UTI Lactic acid: 1.5 Maximal respiratory rate of 33 EKG showed sinus tachycardia. Highest heart rate 118 Tmax 102.8 CURB 65: 2 (confusion and age more than 65) Blood culture ?2 is pending is pending Urine cultures are pending Chest x-ray: Bibasilar atelectasis Antibiotics: Zosyn was started on 09/24/2018. Urine culture on 07/25/2018 showed Klebsiella pneumonia. Also patient has a history of E. coli in the urine. Will continue Zosyn IV hydration: Received normal saline bolus. Continue maintenance infusion of normal saline at 100ml/hr for 1L Trend CBC and BMP Abdominal hernia Consider discussing with surgery. Asthma/COPD Home PRN inhalers continued CAD status post stents Plavix continued Diabetes mellitus On admission her blood glucose was not within goal Continue home basal and prandial insulin Accu-Chek q. before meals at bedtime Adjust anti-hypoglycemic regimen as necessary. Chronic pancreatitis Home pancreatic enzymes continued Tobacco abuse Declined nicotine patch Counseled.. DVT prophylaxis: subcutaneous heparin. Code Visit Inpatient E&M: 65098 Init Hosp L3
--- NOTE | 2018-09-24 04:44 | ED.RN ---
PT'S DAUGHTER NOTIFIED OF PT ADMISSION TO MED SURG. SHE VERBALIZED UNDERSTANDING.
[2018-09-24] MEDS: 0.9% Normal Saline 1,000 ML 100 ML IV ×3 (05:55→17:15)
[2018-09-24] MEDS: Benzonatate 100 MG Capsule PO ×3 (06:49→22:26)
[2018-09-24] MEDS: Acetaminophen 500 MG Tablet 1000 MG PO ×3 (06:49→22:26)
[2018-09-24 06:56] LABS: Bedside Glucose 212 mg/dL (70-110)
[2018-09-24] MEDS: Budesonide Respules 0.5 MG/2 ML AMPUL.NEB. INHALATION ×2 (07:13→19:37)
[2018-09-24] MEDS: Albuterol 2.5 MG/3 ML VIAL.NEB. INHALATION ×3 (07:13→19:37)
[2018-09-24] MEDS: Insulin Lispro 100 UNIT/ML INSULN.PEN 30 UNIT SC ×2 (08:28→12:16)
[2018-09-24] MEDS: Aspirin E.C. 81 MG Tablet PO (08:30)
--- NOTE | 2018-09-24 09:30 | NURSING ---
Patient up in chair, sweaty but not cold and per patient feels very exhausted. Vital signs and blood sugar checked. blood sugar not low. BP systolic in 90s. Patient does not want bp meds at this time or her lyrica.
[2018-09-24] MEDS: Oxybutynin 5 MG Tablet PO ×2 (09:32→22:29)
[2018-09-24] MEDS: Heparin Injection (Vial) 5,000 UNIT/ML VIAL 5000 UNIT SC ×2 (09:32→22:29)
[2018-09-24] MEDS: Nystatin Powder 15gm Bottle 1 APPLIC TOPICAL ×2 (09:34→22:26)
[2018-09-24] MEDS: Pantoprazole Sodium 40 MG Tablet PO (09:35)
[2018-09-24] MEDS: Magnesium Oxide 400 MG Tablet PO (09:35)
[2018-09-24] MEDS: Clopidogrel Bisulfate 75 MG Tablet PO (09:35)
[2018-09-24] MEDS: FLUoxetine 20 MG Capsule 40 MG PO (09:36)
[2018-09-24] MEDS: buPROPion 75 MG Tablet PO (09:37)
[2018-09-24 10:01] LABS: Bedside Glucose 358 mg/dL (70-110)
--- NOTE | 2018-09-24 11:03 | CM.UR ---
Addendum entered by Shereen Ambrose 09/24/18 15:36: Attempted to see patient again however she was still sleeping. Nay Ambrose RN, CCM. Original Note: Attempted to meet with patient to do assessment however RN stopped me at door and said she is sleeping. States she was exhausted. 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 Nay Ambrose RN, CCM.
[2018-09-24] MEDS: Ferrous Sulfate 325 MG Tablet PO (11:37)
--- NOTE | 2018-09-24 11:37 | PCM.PN.BLA ---
Progress Note Patient was seen and examined. She was admitted this morning altered mental status and fever. Patient has been drowsy since admission. At the time of being examined, patient feels much improved. She looks slightly drowsy, but able to carry on a conversation. She complains of dysuria. Denies chest pain or shortness of breath Vitals are stable except blood pressure remain relatively low; had a T-max of 102.8F, on 2 L of oxygen. Physical exam: GEN: Alert, oriented x3, obese, not pale, not jaundiced, mildly dehydrated CVS: HS I +II, regular, no murmurs RESP: CTA ABD: BS present, soft, non-tender, no palpable organs, Alvarez catheter has cloudy urine EXT: No edema Assessment: Acute metabolic encephalopathy secondary to secondary to UTI Gram-negative bacteremia EMETERIO, secondary to dehydration/sepsis, baseline Cr 0.98 UTI Hyperglycemia Obesity, BMI 34.8 Hyperlipidemia Hypertension Type II DM CAD History of rectal bleeding Meds reviewed. Plan: Repeat blood culture DC Alvarez catheter Continue IV fluid hydration Continue with IV Zosyn Continue with insulin Will continue to monitor vitals closely
--- NOTE | 2018-09-24 12:00 | NURSING ---
IV tubing was caught on bed rail and pulled out of IVF bag. Majority of fluid on floor - new bag hung to get needed remaining amount
[2018-09-24 14:56] LABS: Bedside Glucose 232 mg/dL (70-110)
[2018-09-24 16:40] LABS: Bedside Glucose 65 mg/dL (70-110)
[2018-09-24 17:06] LABS: Bedside Glucose 113 mg/dL (70-110)
[2018-09-24] MEDS: Pravastatin 40 MG Tablet PO (22:26)
[2018-09-24 22:36] LABS: Bedside Glucose 197 mg/dL (70-110)
[2018-09-24] MEDS: Pregabalin 75 MG Capsule PO (22:38)
[2018-09-25] VITALS (13 sets, daily range): BP systolic 122–164; BP diastolic 43–82; PULSE 80–104; RESP 16–20; TEMP 37.2–38.6; O2SAT 89–100
[2018-09-25] MEDS: 0.9% Normal Saline 1,000 ML 100 ML IV (03:15)
[2018-09-25] MEDS: Ibuprofen 400 MG Tablet PO (04:22)
--- NOTE | 2018-09-25 04:23 | NURSING ---
Spoke with Dr. Rey regarding pts fever 101.5. New order for 1x dose ibuprofen 400mg.
[2018-09-25 06:40] LABS: Absolute Lymphocyte Count 0.75 X10^3/ul (0.83-4.51); Absolute Neutrophil Count 5.8 X10^3/uL (2.0-7.7); Basophil# 0.02 X10^3/uL; Basophil% 0.3 % (0-1); Eosinophil# 0.04 X10^3/uL; Eosinophils% 0.6 % (0-5); Hematocrit 37.8 % (37-47); Hemoglobin 11.8 g/dl (12.0-15.0); Lymphocyte # 0.75 X10^3/ul (4.0); Lymphocyte % 10.4 % (19-41); Mean Corp Hgb Conc 31.2 g/gl (32-36); Mean Corpuscular Hgb 26.5 pg (27.0-32.0); Mean Corpuscular Volume 84.8 fL (81-99); Mean Platelet Vol. 10.6 fl (6.2-12.0); Monocyte# 0.56 X10^3/uL; Monocyte% 7.8 % (0-10); Neutrophil # 5.82 X10^3/uL (2.7-7.7); Neutrophil % 80.6 % (47-70); Platelet Count 132 K/mm3 (150-450); RBC Distribution Width CV 13.8 % (11.6-14.6); RBC Distribution Width SD 42.4 fl (35.1-43.9); Red Blood Count 4.46 M/mm3 (4.2-5.4); White Blood Count 7.2 K/mm3 (4.4-11.0)
[2018-09-25] MEDS: Benzonatate 100 MG Capsule PO ×3 (06:41→22:23)
[2018-09-25] MEDS: Acetaminophen 500 MG Tablet 1000 MG PO (06:41)
[2018-09-25 06:52] LABS: Anion Gap 9 (5-15); BUN 19 mg/dL (7-18); BUN/Creat Ratio 16.5 RATIO (10-20); Calcium,Total 7.8 mg/dL (8.5-10.1); Chloride 111 mmol/L (98-107); Creatinine, Serum 1.15 mg/dL (0.55-1.02); EST Glomerular Filtration Rate 49 mL/min (>60); Est Glom Filt Rate - Afr Amer 59 mL/min (>60); Estimated Creatinine Clearance 43.95 ml/min; Glucose 161 mg/dL (74-106); Potassium 4.1 mmol/L (3.5-5.1); Sodium Level 142 mmol/L (136-145)
[2018-09-25 06:56] LABS: Bedside Glucose 148 mg/dL (70-110)
[2018-09-25 06:56] LABS: Bedside Glucose 180 mg/dL (70-110)
[2018-09-25] MEDS: Albuterol 2.5 MG/3 ML VIAL.NEB. INHALATION ×3 (07:12→18:54)
[2018-09-25] MEDS: Budesonide Respules 0.5 MG/2 ML AMPUL.NEB. INHALATION ×2 (07:12→18:53)
[2018-09-25 07:13] LABS: POSITIVE COUNT NO; POSITIVE DIFFERENTIAL NO; POSITIVE MORPHOLOGY NO
[2018-09-25] MEDS: buPROPion 75 MG Tablet PO (08:41)
[2018-09-25] MEDS: Heparin Injection (Vial) 5,000 UNIT/ML VIAL 5000 UNIT SC ×2 (08:41→22:22)
[2018-09-25] MEDS: FLUoxetine 20 MG Capsule 40 MG PO (08:42)
[2018-09-25] MEDS: Magnesium Oxide 400 MG Tablet PO (08:42)
[2018-09-25] MEDS: Pantoprazole Sodium 40 MG Tablet PO (08:42)
[2018-09-25] MEDS: Oxybutynin 5 MG Tablet PO (08:43)
[2018-09-25] MEDS: Nystatin Powder 15gm Bottle 1 APPLIC TOPICAL ×2 (08:43→22:21)
[2018-09-25] MEDS: Aspirin E.C. 81 MG Tablet PO (08:44)
[2018-09-25] MEDS: Clopidogrel Bisulfate 75 MG Tablet PO (08:48)
[2018-09-25] MEDS: Pregabalin 75 MG Capsule PO (08:59)
--- NOTE | 2018-09-25 10:44 | PN_ITS ---
Patient Problems: Active and Suspected Problems Sepsis (Acute) UTI (urinary tract infection) (Acute) Subjective: Patient was seen and examined. She is a little bit more awake today. Admits to some fever and chills. T-max is 101.5F. Denies any chest pain or dizziness or SOB. Urine cultures are coming back for presumptive E. coli. Blood cultures x4 also growing gram-negative rods. Vitals/I&O's: Vital Signs Temp Pulse Resp BP Pulse Ox 98.9 F 96 20 H 127/43 H 95 09/25/18 08:38 09/25/18 08:38 09/25/18 08:38 09/25/18 08:38 09/25/18 08:38 Oxygen Flow Rate (L/min) 1 Oxygen Delivery Method Nasal Cannula Weight: 103.9 kg Body Mass Index (BMI) 34.8 Finger Stick Blood Glucose 224 Intake and Output for Last 24 Hours 09/23/18 09/24/18 09/25/18 23:59 23:59 23:59 Intake Total 1741 / 1741 1858.5 / 1858.5 Output Total 725 / 725 Balance 1016 / 1016 1858.5 / 1858.5 General: Alert, Oriented x3, Cooperative, No apparent distress, - - appears tired, obese HEENT: Atraumatic, PERRLA, EOMI, Normocephalic Oral: Moist Mucosa Neck: Supple Lungs: Normal air movement, Diminished - at the lung bases Cardiovascular: Regular rate, Regular Rhythm, Normal S1, Normal S2, No murmurs Abdomen: Bowel Sounds Present, Soft, Non Tender, Non-Distended, No Hepato- splenomegaly Extremities: No edema Skin: No rashes Musculoskeletal: No Tenderness to Palpation of Joints or Extremities Lymphatic: No Cervical, Supraclavicular, or Inguinal Adenopathy Neurological: Cranial nerves II-XII grossly intact, Neuro grossly intact Psych/Mental Status: Normal Affect, Appropriate Microbiology Past 72 Hours 09/24/18 15:44 Blood Culture (Wb) - Left Hand Blood Culture - Preliminary 09/24/18 01:10 Blood Culture (Wb) - Right Forearm Blood Culture - Preliminary 09/24/18 01:25 Blood Culture (Wb) - Anticubital Left Blood Culture - Preliminary 09/24/18 01:42 Mucosa - Nasopharyngeal Influenza Types A,B Direct FA (CORINNE) - Final Laboratory Results 09/24/18 11:39: POC Glucose 232 H 09/24/18 16:34: POC Glucose 65 L 09/24/18 16:59: POC Glucose 113 H 09/24/18 22:23: POC Glucose 197 H 09/25/18 03:41: POC Glucose 180 H 09/25/18 05:24: WBC 7.2, RBC 4.46, Hgb 11.8 L, Hct 37.8, MCV 84.8, MCH 26.5 L, MCHC 31.2 L, RDW 13.8, RDW Differential 42.4, Plt Count 132 L, MPV 10.6, Immature Gran % (Auto) 0.300, Neut % (Auto) 80.6 H, Lymph % (Auto) 10.4 L, Worth % (Auto) 7.8, Eos % (Auto) 0.6, Baso % (Auto) 0.3, Absolute Neuts (auto) 5.8, Absolute Lymphs (auto) 0.75 L, Total Counted Not Reportable 09/25/18 05:24: Sodium 142, Potassium 4.1, Chloride 111 H, Carbon Dioxide 22.0, Anion Gap 9, BUN 19 H, Creatinine 1.15 H, Estim Creat Clear Calc 43.95, Est GFR (MDRD) Af Amer 59 L, Est GFR (MDRD) Non-Af 49 L, BUN/Creatinine Ratio 16.5, Glucose 161 H, Calcium 7.8 L 09/25/18 06:45: POC Glucose 148 H Current Medications Acetaminophen (Tylenol) 1,000 mg PO TID [facility] Last Admin: 09/25/18 06:41 Dose: 1,000 mg Albuterol Sulfate (Ventolin Aerosols) 2.5 mg INHALATION Q6HWA.RT [facility] Last Admin: 09/25/18 07:12 Dose: 2.5 mg Albuterol Sulfate (Ventolin Aerosols) 2.5 mg INHALATION Q4H PRN PRN PRN Reason: SHORTNESS OF BREATH Aspirin (Ecotrin) 81 mg PO DAILY@0800 [facility] Last Admin: 09/25/18 08:44 Dose: 81 mg Benzonatate (Tessalon Perle) 100 mg PO TID [facility] Last Admin: 09/25/18 06:41 Dose: 100 mg Budesonide (Pulmicort Aerosol) 0.5 mg INHALATION BID.RT [facility] Last Admin: 09/25/18 07:12 Dose: 0.5 mg Bupropion HCl (Wellbutrin Tablets) 75 mg PO DAILY [facility] Last Admin: 09/25/18 08:41 Dose: 75 mg Clopidogrel Bisulfate (Plavix) 75 mg PO DAILY [facility] Last Admin: 09/25/18 08:48 Dose: 75 mg Dextrose (D50w Syringe) 0 gm IV X1 PRN; Protocol PRN Reason: Hypoglycemia Ferrous Sulfate (Ferrous Sulfate) 325 mg PO DAILY@1200 [facility] Last Admin: 09/24/18 11:37 Dose: 325 mg Fluoxetine HCl (Prozac) 40 mg PO DAILY [facility] Last Admin: 09/25/18 08:42 Dose: 40 mg Glucagon () 1 mg IM .X1 PRN PRN Reason: Hypoglycemia Heparin Sodium (Porcine) (Heparin Na) 5,000 unit SC Q12 [facility] Last Admin: 09/25/18 08:41 Dose: 5,000 unit Piperacillin Sod/Tazobactam (Sod 3.375 gm/ Sodium Chloride) 50 mls @ 12.5 mls/hr IV Q8 [facility] Last Admin: 09/25/18 06:40 Dose: 12.5 mls/hr Sodium Chloride () 1,000 mls @ 100 mls/hr IV .Q10H [facility] Stop: 09/25/18 12:24 Last Admin: 09/25/18 03:15 Dose: 100 mls/hr Insulin Glargine (Lantus (Bkc)) 40 units SC QHS [facility] Last Admin: 09/24/18 22:27 Dose: 40 u Isosorbide Mononitrate (Imdur) 30 mg PO DAILY [facility] Last Admin: 09/24/18 09:33 Dose: Not Given Magnesium Hydroxide (Milk Of Magnesia) 30 ml PO DAILY PRN PRN PRN Reason: Constipation Magnesium Oxide (Mag-Ox 400) 400 mg PO DAILY [facility] Last Admin: 09/25/18 08:42 Dose: 400 mg Non-Formulary Medication (Viokace 20,880-78,300 Units Tb) 78,300 units PO TID [facility] Nystatin (Mycostatin Powder) 1 applic TOPICAL BID [facility] Last Admin: 09/25/18 08:43 Dose: 1 applicatio Ondansetron HCl (Zofran) 4 mg IV Q8H PRN PRN PRN Reason: NAUSEA Oxybutynin Chloride (Ditropan) 5 mg PO BID [facility] Last Admin: 09/25/18 08:43 Dose: 5 mg Pantoprazole Sodium (Protonix) 40 mg PO DAILY [facility] Last Admin: 09/25/18 08:42 Dose: 40 mg Pravastatin Sodium (Pravachol) 40 mg PO QHS [facility] Last Admin: 09/24/18 22:26 Dose: 40 mg Pregabalin (Lyrica) 75 mg PO BID [facility] Last Admin: 09/25/18 08:59 Dose: 75 mg Sodium Chloride () 5 - 15 ml IV UD PRN PRN Reason: SALINE FLUSH Trazodone HCl (Desyrel) 50 mg PO QHS [facility] Last Admin: 09/24/18 22:25 Dose: Not Given Medical Necessity - Tobacco Use Smoking Status: Current every day smoker Assessment/Plan All Active Problems Sepsis (Acute) UTI (urinary tract infection) (Acute) Chest pain (Resolved) Bright red blood per rectum (Acute) UTI (urinary tract infection) (Resolved) 73-year-old female with past medical history of obesity, hypertension, type II DM, asthma/COPD, CAD status post stents, comes in with altered mental status and has been managed as sepsis secondary to UTI. 1. Acute metabolic encephalopathy secondary to sepsis from UTI, mildly improved. Will hold Lyrica and trazodone, will continue to monitor May be resumed later. 2. Gram-negative bacteremia/sepsis secondary to E. Coli UTI, patient still having temperature spikes, despite being on Tylenol Blood cultures x4 are growing gram-negative rods, Remains on Zosyn day 2, no leukocytosis Consult ID, repeat blood cultures, continue IV Zosyn. 3. Type II DM, blood sugars have been fluctuating, patient was hypoglycemic yesterday, home insulin regimen was stopped, blood sugar starting to improve, elevated today as patient is a little bit more awake, Would be cautious and start patient on Lantus 10 units nightly, and Accu-Cheks with insulin sliding scale May need elevation in her insulin regimen if blood sugars continue to be uncontrolled 4. Hypertension, controlled today, patient was relatively hypotensive yesterday, home Lisinopril, carvedilol, Terazosin 5. Anxiety/depression, continue on Wellbutrin, trazodone, Prozac 6. Iron deficiency anemia, Hb is stable at 11.8, on iron 7. History of GI bleed, on PPI 8. Brooke intertrigo in abdominal wall folds,, on nystatin powder 9. EMETERIO on CKD stage 3, Cr remains the same, previous creatinine in April 2080 was 0.98 10.DVt PPx- Heparin SC 11. Disposition: Pending PT/OT evaluations - may need SNF at the end of this admission Code Visit Inpatient E&M: 70279 Subs Hosp L2
[2018-09-25 11:31] LABS: Bedside Glucose 330 mg/dL (70-110)
[2018-09-25] MEDS: Isosorbide Mononitrate 30 MG Tablet PO (12:59)
[2018-09-25] MEDS: Glucerna Shake 120 ML LIQUID PO ×2 (12:59→16:05)
[2018-09-25 13:00] LABS: Albumin, Serum 2.4 g/dL (3.2-5.0)
[2018-09-25] MEDS: Insulin Lispro 100 UNIT/ML INSULN.PEN SQ ×3 (13:12→22:28)
[2018-09-25 14:45] LABS: Hemoglobin A1c 9.4 % (4.2-6.3)
[2018-09-25 16:11] LABS: Bedside Glucose 327 mg/dL (70-110)
[2018-09-25] MEDS: Ondansetron 4 MG/2 ML Vial IV (18:40)
[2018-09-25] MEDS: 0.9% NaCl Peripheral Flush Adult/Peds IV (18:40)
[2018-09-25] MEDS: Pravastatin 40 MG Tablet PO (22:23)
[2018-09-26] VITALS (11 sets, daily range): BP systolic 147–180; BP diastolic 56–85; PULSE 64–94; RESP 16–18; TEMP 36.7–37.4; O2SAT 95–100
[2018-09-26 00:16] LABS: Bedside Glucose 312 mg/dL (70-110)
[2018-09-26] MEDS: Acetaminophen 500 MG Tablet 1000 MG PO (01:22)
[2018-09-26] MEDS: Benzonatate 100 MG Capsule PO ×3 (05:42→21:15)
[2018-09-26 06:03] LABS: Absolute Neutrophil Count 3.5 X10^3/uL (2.0-7.7); Basophil# 0.01 X10^3/uL; Basophil% 0.2 % (0-1); Eosinophil# 0.05 X10^3/uL; Eosinophils% 0.8 % (0-5); Hematocrit 34.5 % (37-47); Hemoglobin 10.6 g/dl (12.0-15.0); Lymphocyte % 25.4 % (19-41); Mean Corp Hgb Conc 30.7 g/gl (32-36); Mean Corpuscular Hgb 26.1 pg (27.0-32.0); Mean Platelet Vol. 10.2 fl (6.2-12.0); Monocyte# 0.79 X10^3/uL; Monocyte% 13.4 % (0-10); Neutrophil # 3.54 X10^3/uL (2.7-7.7); Platelet Count 139 K/mm3 (150-450); RBC Distribution Width CV 13.7 % (11.6-14.6); RBC Distribution Width SD 41.8 fl (35.1-43.9); Red Blood Count 4.06 M/mm3 (4.2-5.4); White Blood Count 5.9 K/mm3 (4.4-11.0)
[2018-09-26 06:07] LABS: ALB/GLOB Ratio 0.6 RATIO (0.9-2.4); AST(SGOT) 19 U/L (15-37); Alanine Aminotransfer ALT/SGPT 17 U/L (13-56); Alkaline Phosphatase 126 U/L (45-117); Anion Gap 9 (5-15); BUN 15 mg/dL (7-18); Calcium,Total 7.8 mg/dL (8.5-10.1); Chloride 107 mmol/L (98-107); Creatinine, Serum 1.07 mg/dL (0.55-1.02); EST Glomerular Filtration Rate 53 mL/min (>60); Est Glom Filt Rate - Afr Amer 65 mL/min (>60); Estimated Creatinine Clearance 47.24 ml/min; Globulin 3.6 g/dL (2.2-4.2); Glucose 283 mg/dL (74-106); Potassium 4.2 mmol/L (3.5-5.1); Protein, Total 5.6 g/dL (6.4-8.2); Sodium Level 140 mmol/L (136-145)
[2018-09-26 06:12] LABS: POSITIVE COUNT NO; POSITIVE DIFFERENTIAL NO; POSITIVE MORPHOLOGY NO
[2018-09-26] MEDS: Insulin Lispro 100 UNIT/ML INSULN.PEN SQ ×4 (06:41→21:42)
[2018-09-26 06:46] LABS: Bedside Glucose 251 mg/dL (70-110)
[2018-09-26] MEDS: Albuterol 2.5 MG/3 ML VIAL.NEB. INHALATION ×3 (06:55→19:11)
[2018-09-26] MEDS: Budesonide Respules 0.5 MG/2 ML AMPUL.NEB. INHALATION ×2 (06:55→19:12)
[2018-09-26] MEDS: Glucerna Shake 120 ML LIQUID PO ×3 (07:49→17:15)
[2018-09-26] MEDS: Nystatin Powder 15gm Bottle 1 APPLIC TOPICAL ×2 (08:35→21:15)
[2018-09-26] MEDS: Magnesium Oxide 400 MG Tablet PO (08:35)
[2018-09-26] MEDS: Isosorbide Mononitrate 30 MG Tablet PO (08:35)
[2018-09-26] MEDS: Aspirin E.C. 81 MG Tablet PO (08:35)
[2018-09-26] MEDS: FLUoxetine 20 MG Capsule 40 MG PO (08:37)
[2018-09-26] MEDS: Pantoprazole Sodium 40 MG Tablet PO (08:37)
[2018-09-26] MEDS: buPROPion 75 MG Tablet PO (08:37)
[2018-09-26] MEDS: Clopidogrel Bisulfate 75 MG Tablet PO (08:39)
[2018-09-26] MEDS: Heparin Injection (Vial) 5,000 UNIT/ML VIAL 5000 UNIT SC ×2 (08:40→21:15)
--- NOTE | 2018-09-26 11:15 | PCM.HP.ID ---
Problem List (1) Sepsis Status: Acute Reason for Consult: bacteremia Consulted by: Dr. Quigley History of Present Illness: The patient is a 73 year old F who c/o several months of not feeling well, recurrent uti, not improving with abx. Has chronic diarrhea, worse after po intake. Over past few days, fever, chills, not feeling well, some nausea and headache. Came to ED, admitted, started on zosyn. Tmax 102.8. Feeling better. Full ROS performed and neg except as noted above. - Medical History Past Medical History (Chronic Problems): Chronic Problems CKD (chronic kidney disease) (Chronic) Obesity (Chronic) Dyslipidemia (Chronic) Carotid artery disorder (Chronic) CAD (coronary artery disease) (Chronic) Essential (primary) hypertension (Chronic) DM2 (diabetes mellitus, type 2) (Chronic) Allergies/Adverse Reactions: Allergies donepezil [From Aricept] Adverse Reaction (Verified 09/24/18 01:07) Other meperidine [From Demerol] Adverse Reaction (Verified 09/24/18 01:07) Other metformin Adverse Reaction (Verified 09/24/18 01:13) Diarrhea Home Medications: Ambulatory Orders Medication Instructions Recorded Aspirin E.C. [Ecotrin] 81 mg PO DAILY@0800 04/30/17 Carvedilol [Coreg (Beta Radha)] 12.5 mg PO BID 04/30/17 Clopidogrel Bisulfate [Clopidogrel] 75 mg PO DAILY 04/30/17 Insulin Detemir [Levemir] 40 unit SQ QHS 04/30/17 Insulin Detemir [Levemir] 60 unit SQ BREAKFAST 04/30/17 Insulin Lispro [Humalog] 30 unit SC BREAKFAST 04/30/17 Insulin Lispro [Humalog] 30 unit SC LUNCH 04/30/17 Insulin Lispro [Humalog] 33 unit SC DINNER 04/30/17 Lisinopril [Zestril] 5 mg PO DAILY 04/30/17 Melatonin 3 mg PO QHS 04/30/17 Oxybutynin [Ditropan] 5 mg PO BID 04/30/17 Pantoprazole Sodium [Protonix] 40 mg PO DAILY 04/30/17 Pravastatin [Pravachol] 40 mg PO QHS 04/30/17 Pregabalin [Lyrica] 75 mg PO BID 04/30/17 Terazosin HCl 2 mg PO QHS 04/30/17 Trazodone HCl 50 mg PO QHS 04/30/17 buPROPion tablets [Wellbutrin 75 mg PO DAILY 04/30/17 tablets] Nitroglycerin [Nitrostat] 0.4 mg SUBLINGUAL Q5M PRN tablet 09/28/17 Ferrous Sulfate 325 mg PO DAILY 04/25/18 Acetaminophen 1,000 mg PO TID 09/24/18 Albuterol IH (ProAir) [Proair Hfa] 2 puff INHALATION Q4H PRN PRN 09/24/18 Benzonatate [Tessalon Perle] 100 mg PO TID 09/24/18 Florajen3 Capsule 460 mg PO DAILY 09/24/18 Fluoxetine HCl 40 mg PO DAILY 09/24/18 Fluticasone/Salmeterol [Advair 1 puff INHALATION BID 09/24/18 100-50 Diskus] Isosorbide Mononitrate [Isosorbide 30 mg PO DAILY 09/24/18 Mononitrate ER] Magnesium Oxide [Mag-Ox 400] 400 mg PO DAILY 09/24/18 Nystatin 1 applic TOPICAL BID 09/24/18 Lipase/Protease/Amylase [Creon Dr 1 day PO TID 09/26/18 12,000 Units Capsule] - Social History Tobacco Use: cigarettes Vital Signs Temp Pulse Resp BP Pulse Ox 98.0 F 64 18 153/56 H 98 09/26/18 07:42 09/26/18 07:42 09/26/18 07:42 09/26/18 07:42 09/26/18 08:39 Oxygen Flow Rate (L/min) 1 Oxygen Delivery Method Nasal Cannula Weight: 103.9 kg Body Mass Index (BMI) 34.8 Finger Stick Blood Glucose 224 Microbiology Past 72 Hours 09/24/18 15:36 Blood Culture - Preliminary Blood Culture (Wb) - Right Hand Presumptive E. coli 09/24/18 15:44 Blood Culture - Preliminary Blood Culture (Wb) - Left Hand Presumptive E. coli 09/24/18 01:25 Blood Culture - Final Blood Culture (Wb) - Anticubital Left Presumptive E. coli 09/24/18 01:10 Blood Culture - Final Blood Culture (Wb) - Right Forearm Escherichia coli 09/24/18 01:50 Urine Culture - Final Urine Catheter - Catheter Presumptive E. coli 09/24/18 01:42 Influenza Types A,B Direct FA (CORINNE) - Final Mucosa - Nasopharyngeal Laboratory Tests Past 24 Hrs 09/25/18 09/25/18 09/26/18 05:24 05:24 05:15 WBC 5.9 RBC 4.06 L Hgb 10.6 L Hct 34.5 L MCV 85.0 MCH 26.1 L MCHC 30.7 L RDW 13.7 RDW Differential 41.8 Plt Count 139 L MPV 10.2 Immature Gran % (Auto) 0.200 Neut % (Auto) 60.0 Lymph % (Auto) 25.4 Lenoir % (Auto) 13.4 H Eos % (Auto) 0.8 Baso % (Auto) 0.2 Absolute Neuts (auto) 3.5 Absolute Lymphs (auto) 1.50 Total Counted Not Reportable Sodium Potassium Chloride Carbon Dioxide Anion Gap BUN Creatinine Estim Creat Clear Calc Est GFR (MDRD) Af Amer Est GFR (MDRD) Non-Af BUN/Creatinine Ratio Glucose Hemoglobin A1c 9.4 H Calcium Total Bilirubin AST ALT Alkaline Phosphatase Total Protein Albumin 2.4 L Globulin Albumin/Globulin Ratio 09/26/18 05:15 WBC RBC Hgb Hct MCV MCH MCHC RDW RDW Differential Plt Count MPV Immature Gran % (Auto) Neut % (Auto) Lymph % (Auto) Lenoir % (Auto) Eos % (Auto) Baso % (Auto) Absolute Neuts (auto) Absolute Lymphs (auto) Total Counted Sodium 140 Potassium 4.2 Chloride 107 Carbon Dioxide 24.0 Anion Gap 9 BUN 15 Creatinine 1.07 H Estim Creat Clear Calc 47.24 Est GFR (MDRD) Af Amer 65 Est GFR (MDRD) Non-Af 53 L BUN/Creatinine Ratio 14.0 Glucose 283 H Hemoglobin A1c Calcium 7.8 L Total Bilirubin 0.60 AST 19 ALT 17 Alkaline Phosphatase 126 H Total Protein 5.6 L Albumin 2.0 L Globulin 3.6 Albumin/Globulin Ratio 0.6 L - Other Studies Radiology: [] reviewed Other Studies: [] Route of nutrition/ use of supplements: [] Nutritional Intake: [] IV Site: [] Alvarez Catheter: [] - Physical Exam General: Alert, Oriented x3, Cooperative, No apparent distress HEENT: Atraumatic, PERRLA, EOMI Neck: Supple, No Nodes Lungs: Clear to auscultation, Normal air movement Cardiovascular: Regular rate, Regular Rhythm Abdomen: Soft, Non Tender, Non-Distended, - - mild bilateral flank pain Extremities: Edema Skin: No rashes IV Site: Peripheral, without redness Musculoskeletal: No Tenderness to Palpation of Joints or Extremities Neurological: Cranial nerves II-XII grossly intact - Assessment/Plan Antibiotics: [] Assessment/Plan: [] Active and Suspected Problems Sepsis (Acute) UTI (urinary tract infection) (Acute) sepsis due to ecoli bacteremia from urinary source - improving. Will check repeat bcx. Narrow zosyn to ceftriaxone. Plan will be for home with po abx. Will follow, thank you.
--- NOTE | 2018-09-26 11:30 | CASEMGMT ---
VERONICA VIEYRA Face to Face with patient for initial transition planning/care coordination assessment. VERONICA VIEYRA introduced self and role at [facility]. Patient lying in bed, alert and oriented. Patient willing to participate in assessment and is able to answer all questions appropriately. Care providers, pharmacy, and demographics verified. Patient wishes to discharge to SNF at discharge, [facility] in [place] where she has been previously and where her sister is at. Patient became tearful when speak about her daughter and how she dropped the patient off at her cousin's house. Patient states she has no further needs or concerns at this time. Referral made to CANDIE Lacey for emotional support and request for placement. PCP: [facility] Specialists: None [place] [facility] [place] [facility] Prescription Benefit: Yes Living Will/HPOA: Yes but states she needs to updated because she does not want her daughter to be her POA LNOK: Daughter and cousin Living Arrangements: Patient was living with daughter who was helping to care for her. Daughter then took to [facility] for a couple of days but she has been there for 2 months. Patient tearful that her daughter has all of her stuff. Transportation: Cousin DME/HHC: Patient states that she has a rollator. She also has shower chair and hospital bed but they are with daughter. Disposition Plan: SNF pending acceptance and PreCert. Stacy ROBLES, RN, CM
[2018-09-26 11:40] LABS: Bedside Glucose 389 mg/dL (70-110)
--- NOTE | 2018-09-26 11:54 | PCM.PN.HOSP ---
Patient Problems: Active and Suspected Problems Sepsis (Acute) UTI (urinary tract infection) (Acute) Subjective: Patient has history of recurrent UTI. T-max 102.8 on day of admission. No fever overnight. Blood cultures x2 on 09/24 and urine culture showing presumptive E. coli. Currently on IV Zosyn. Antibiotics narrowed down to ceftriaxone Vitals/I&O's: Vital Signs Temp Pulse Resp BP Pulse Ox 98.0 F 64 18 153/56 H 98 09/26/18 07:42 09/26/18 07:42 09/26/18 07:42 09/26/18 07:42 09/26/18 08:39 Oxygen Flow Rate (L/min) 1 Oxygen Delivery Method Nasal Cannula Weight: 229 lb 0.964 oz Body Mass Index (BMI) 34.8 Finger Stick Blood Glucose 224 Intake and Output for Last 24 Hours 09/24/18 09/25/18 09/26/18 23:59 23:59 23:59 Intake Total 1741 / 1741 3166.5 / 3166.5 576 / 576 Output Total 725 / 725 1100 / 1100 600 / 600 Balance 1016 / 1016 2066.5 / 2066.5 - General: Alert, Oriented x3, Cooperative HEENT: Atraumatic, PERRLA, EOMI, Normocephalic Neck: Supple, No JVD, Negative Carotid Bruits Lungs: Clear to auscultation, Normal air movement Cardiovascular: Regular rate, No murmurs Abdomen: Bowel Sounds Present, Soft, Non-Distended, Tender - Mild suprapubic tenderness. Extremities: Capillary Refill Less than 3 Seconds, Edema Skin: No rashes, No breakdown Musculoskeletal: No Tenderness to Palpation of Joints or Extremities, Arthritic Changes Neurological: Cranial nerves II-XII grossly intact, Neuro grossly intact Psych/Mental Status: Normal Affect, Appropriate Microbiology Past 72 Hours 09/24/18 15:36 Blood Culture (Wb) - Right Hand Blood Culture - Preliminary Presumptive E. coli 09/24/18 15:44 Blood Culture (Wb) - Left Hand Blood Culture - Preliminary Presumptive E. coli 09/24/18 01:25 Blood Culture (Wb) - Anticubital Left Blood Culture - Final Presumptive E. coli 09/24/18 01:10 Blood Culture (Wb) - Right Forearm Blood Culture - Final Escherichia coli 09/24/18 01:50 Urine Catheter - Catheter Urine Culture - Final Presumptive E. coli 09/24/18 01:42 Mucosa - Nasopharyngeal Influenza Types A,B Direct FA (CORINNE) - Final Laboratory Results 09/25/18 05:24: Albumin 2.4 L 09/25/18 05:24: Hemoglobin A1c 9.4 H 09/25/18 16:02: POC Glucose 327 H 09/25/18 22:26: POC Glucose 312 H 09/26/18 05:15: WBC 5.9, RBC 4.06 L, Hgb 10.6 L, Hct 34.5 L, MCV 85.0, MCH 26.1 L, MCHC 30.7 L, RDW 13.7, RDW Differential 41.8, Plt Count 139 L, MPV 10.2, Immature Gran % (Auto) 0.200, Neut % (Auto) 60.0, Lymph % (Auto) 25.4, Power % (Auto) 13.4 H, Eos % (Auto) 0.8, Baso % (Auto) 0.2, Absolute Neuts (auto) 3.5, Absolute Lymphs (auto) 1.50, Total Counted Not Reportable 09/26/18 05:15: Sodium 140, Potassium 4.2, Chloride 107, Carbon Dioxide 24.0, Anion Gap 9, BUN 15, Creatinine 1.07 H, Estim Creat Clear Calc 47.24, Est GFR (MDRD) Af Amer 65, Est GFR (MDRD) Non-Af 53 L, BUN/Creatinine Ratio 14.0, Glucose 283 H, Calcium 7.8 L, Total Bilirubin 0.60, AST 19, ALT 17, Alkaline Phosphatase 126 H, Total Protein 5.6 L, Albumin 2.0 L, Globulin 3.6, Albumin/Globulin Ratio 0.6 L 09/26/18 06:39: POC Glucose 251 H 09/26/18 11:38: POC Glucose 389 H Current Medications Acetaminophen (Tylenol) 1,000 mg PO TID PRN PRN Reason: FEVER Last Admin: 09/26/18 01:22 Dose: 1,000 mg Albuterol Sulfate (Ventolin Aerosols) 2.5 mg INHALATION Q6HWA.RT JAQUAN Last Admin: 09/26/18 06:55 Dose: 2.5 mg Albuterol Sulfate (Ventolin Aerosols) 2.5 mg INHALATION Q4H PRN PRN PRN Reason: SHORTNESS OF BREATH Aspirin (Ecotrin) 81 mg PO DAILY@0800 [facility] Last Admin: 09/26/18 08:35 Dose: 81 mg Benzonatate (Tessalon Perle) 100 mg PO TID [facility] Last Admin: 09/26/18 05:42 Dose: 100 mg Budesonide (Pulmicort Aerosol) 0.5 mg INHALATION BID.RT [facility] Last Admin: 09/26/18 06:55 Dose: 0.5 mg Bupropion HCl (Wellbutrin Tablets) 75 mg PO DAILY [facility] Last Admin: 09/26/18 08:37 Dose: 75 mg Clopidogrel Bisulfate (Plavix) 75 mg PO DAILY [facility] Last Admin: 09/26/18 08:39 Dose: 75 mg Dextrose (D50w Syringe) 0 gm IV X1 PRN; Protocol PRN Reason: Hypoglycemia Ferrous Sulfate (Ferrous Sulfate) 325 mg PO DAILY@1200 [facility] Last Admin: 09/25/18 12:12 Dose: Not Given Fluoxetine HCl (Prozac) 40 mg PO DAILY [facility] Last Admin: 09/26/18 08:37 Dose: 40 mg Glucagon () 1 mg IM .X1 PRN PRN Reason: Hypoglycemia Heparin Sodium (Porcine) (Heparin Na) 5,000 unit SC Q12 [facility] Last Admin: 09/26/18 08:40 Dose: 5,000 unit Ceftriaxone Sodium 2 gm/ (Sodium Chloride) 50 mls @ 100 mls/hr IV Q24 [facility] Insulin Glargine (Lantus (Bkc)) 10 units SC QHS [facility] Last Admin: 09/25/18 22:27 Dose: 10 u Insulin Human Lispro (Humalog Kwikpen (Bkc)) 0 unit SQ ACHS [facility]; Protocol Last Admin: 09/26/18 06:41 Dose: 2 units Isosorbide Mononitrate (Imdur) 30 mg PO DAILY [facility] Last Admin: 09/26/18 08:35 Dose: 30 mg Magnesium Hydroxide (Milk Of Magnesia) 30 ml PO DAILY PRN PRN PRN Reason: Constipation Magnesium Oxide (Mag-Ox 400) 400 mg PO DAILY [facility] Last Admin: 09/26/18 08:35 Dose: 400 mg Non-Formulary Medication (Lipase/Protease/Amylase) 1 day PO TID [facility] Nutritional Formula (Lactose Free) (Glucerna Shake) 120 ml PO TIDCM [facility] Last Admin: 09/26/18 07:49 Dose: 120 ml Nystatin (Mycostatin Powder) 1 applic TOPICAL BID [facility] Last Admin: 09/26/18 08:35 Dose: 1 applicatio Ondansetron HCl (Zofran) 4 mg IV Q8H PRN PRN PRN Reason: NAUSEA Last Admin: 09/25/18 18:40 Dose: 4 mg Pantoprazole Sodium (Protonix) 40 mg PO DAILY [facility] Last Admin: 09/26/18 08:37 Dose: 40 mg Pravastatin Sodium (Pravachol) 40 mg PO QHS [facility] Last Admin: 09/25/18 22:23 Dose: 40 mg Sodium Chloride () 5 - 15 ml IV UD PRN PRN Reason: SALINE FLUSH Last Admin: 09/25/18 18:40 Dose: 10 ml Medical Necessity - Tobacco Use Smoking Status: Current every day smoker Assessment/Plan All Active Problems Sepsis (Acute) UTI (urinary tract infection) (Acute) Chest pain (Resolved) Bright red blood per rectum (Acute) UTI (urinary tract infection) (Resolved) This is a 73-year-old female with past medical history of obesity, hypertension, type II DM, asthma/COPD, CAD status post stents, is being admitted with acute metabolic encephalopathy secondary to sepsis from gram-negative concha bacteremia secondary to UTI. Patient has history of recurrent UTI in the past. Patient had urinary tract symptoms positive of increased frequency, urgency, burning micturition but no hematuria. Patient has seen urologist long time ago about 10 years in [place]. Denies history of obstructive uropathy or lesion occluding stone, tumor or stricture. CT abdomen was negative for acute obstructive uropathy. 1. Acute metabolic encephalopathy secondary to sepsis from UTI: Resolved. Patient is awake and alert x3. hold Lyrica and trazodone. 2. Gram-negative bacteremia/sepsis secondary to E. Coli UTI blood cultures x4 was positive of gram-negative concha, presented E. coli. ID was consulted. Antibiotic narrowed from Zosyn to Rocephin. 3. Type II DM, blood sugars have been fluctuating, glucose 283. Accu-Chek before meals and at bedtime and cover with NovoLog sliding scale. 4. Hypertension, controlled today, home Lisinopril, carvedilol, Terazosin 5. Anxiety/depression, continue on Wellbutrin, trazodone, Prozac 6. Iron deficiency anemia, Hb is stable at 11.8, on iron 7. History of GI bleed, on PPI 8. Brooke intertrigo in abdominal wall folds,, on nystatin powder 9. EMETERIO on CKD stage 3, Cr remains the same, previous creatinine in April 2080 was 0.98 10.DVt PPx- Heparin SC 11. Disposition: Patient wants to go home. PT and OT evaluation. Clinical Impression(s) from Imaging Studies Abdomen/Pelvis CT 09/24/18 01:11 IMPRESSION: Anterior abdominal wall hernia containing a portion of the transverse colon without mechanical obstruction. No evidence of acute appendicitis or acute obstructive uropathy. Hepatomegaly. Brain CT 09/24/18 01:11 IMPRESSION: No CT evidence of acute infarct or hemorrhage. If there is clinical concern for hyperacute ischemia that is not evident by CT, MRI should be considered if possible. Code Visit Inpatient E&M: 07268 Subs Hosp L3
[2018-09-26] MEDS: Ferrous Sulfate 325 MG Tablet PO (12:06)
--- NOTE | 2018-09-26 12:45 | CASEMGMT ---
VERONICA VIEYRA received update from Infectious Disease that patient will require IV ATBs at discharge. VERONICA VIEYRA spoke with patient regarding IV ATB and if patient's was willing to learn how to assist with IV ATB at home. Patient stated would be able to help. VERONICA VIEYRA asked if referral could be sent to [facility] to setup ATB at home. Patient agreed and referral sent to [facility]. Patient is currently established with [facility]. VERONICA VIEYRA updated [facility] for need for IV ATB at discharge. VERONICA VIEYRA will continue to follow this patient and plan for a safe discharge.
--- NOTE | 2018-09-26 15:40 | CASEMGMT ---
Social Work Note RN AZALIA Casanova updated this worker that pt is agreeable to [facility] for SNF placement, redoing advanced directives and in regards to pt's current situation with her daughter. SW met with pt, introduced self and role at [facility]. Pt is alert and orientated x3. PT confirms that she is agreeable to [facility] for SNF and would like to go skilled with the potential that it will be Assisted Living at some point. SW explained referral process and that pt will need pre-cert. Pt states understanding. SW asked pt about situation with pt's daughter. Pt states that her daughter is Rocío and up until the day after [place] she was living with her daughter who was assisting pt with care. Pt states that Rocío then dropped her off at the cousin's [facility] house where pt has been residing since. Pt states that her daughter Rocío still has everything of pt's at her home. SW asked pt if [facility] is able to get pt's things from Rocío's house and pt sates that neither she or Ayde has keys to Rocío's. SW informed pt that if Rocío is refusing to allow pt to get her things then pt is permitted to call the seal delivery vehicle team technician to get her things. SW offered support to pt. SW asked pt about redoing advanced directives. Pt states that her daughter is currently listed as HCPOA but she wishes to redo them. SW informed pt that this can be done at [facility]. Pt states well I wouldn't know who to name. SW explained that this worker can provided pt with documents and pt can go to [facility] and contact someone to see if they would be willing to be HCPOA for pt. Pt states understanding. CANDIE placed a call to Natalie in admissions at [facility] and faxed referral. CANDIE received message from Natalie who states they are able to accept pt and will submit for pre-cert. Plan: [facility] SNF pending pre-cert Stacy Lacey EVENT COORDINATOR, JINGLE WRITER
[2018-09-26 16:15] LABS: Bedside Glucose 383 mg/dL (70-110)
[2018-09-26] MEDS: Pravastatin 40 MG Tablet PO (21:15)
[2018-09-26 22:25] LABS: Bedside Glucose 388 mg/dL (70-110)
[2018-09-27] VITALS (13 sets, daily range): BP systolic 154–186; BP diastolic 69–93; PULSE 81–106; RESP 16–20; TEMP 36.5–37.6; O2SAT 93–98
[2018-09-27 06:14] LABS: Absolute Lymphocyte Count 1.38 X10^3/ul (0.83-4.51); Absolute Neutrophil Count 3.9 X10^3/uL (2.0-7.7); Basophil# 0.02 X10^3/uL; Basophil% 0.3 % (0-1); Eosinophil# 0.06 X10^3/uL; Hematocrit 36.1 % (37-47); Hemoglobin 11.5 g/dl (12.0-15.0); Lymphocyte # 1.38 X10^3/ul (4.0); Lymphocyte % 22.7 % (19-41); Mean Corp Hgb Conc 31.9 g/gl (32-36); Mean Corpuscular Hgb 26.7 pg (27.0-32.0); Mean Corpuscular Volume 83.8 fL (81-99); Mean Platelet Vol. 10.2 fl (6.2-12.0); Monocyte# 0.71 X10^3/uL; Monocyte% 11.7 % (0-10); Neutrophil # 3.89 X10^3/uL (2.7-7.7); Neutrophil % 64.1 % (47-70); Platelet Count 162 K/mm3 (150-450); RBC Distribution Width CV 13.4 % (11.6-14.6); RBC Distribution Width SD 39.8 fl (35.1-43.9); Red Blood Count 4.31 M/mm3 (4.2-5.4); White Blood Count 6.1 K/mm3 (4.4-11.0)
[2018-09-27 06:21] LABS: POSITIVE COUNT NO; POSITIVE DIFFERENTIAL NO; POSITIVE MORPHOLOGY NO
[2018-09-27 06:25] LABS: Anion Gap 9 (5-15); BUN 14 mg/dL (7-18); BUN/Creat Ratio 12.5 RATIO (10-20); Calcium,Total 8.9 mg/dL (8.5-10.1); Chloride 101 mmol/L (98-107); Creatinine, Serum 1.12 mg/dL (0.55-1.02); EST Glomerular Filtration Rate 51 mL/min (>60); Est Glom Filt Rate - Afr Amer 61 mL/min (>60); Estimated Creatinine Clearance 45.13 ml/min; Glucose 381 mg/dL (74-106); Potassium 4.8 mmol/L (3.5-5.1); Sodium Level 137 mmol/L (136-145)
[2018-09-27] MEDS: Benzonatate 100 MG Capsule PO ×2 (06:29→15:15)
[2018-09-27] MEDS: Insulin Lispro 100 UNIT/ML INSULN.PEN SQ ×4 (06:31→22:35)
[2018-09-27 06:36] LABS: Bedside Glucose 357 mg/dL (70-110)
[2018-09-27] MEDS: Albuterol 2.5 MG/3 ML VIAL.NEB. INHALATION ×2 (07:05→13:17)
[2018-09-27] MEDS: Budesonide Respules 0.5 MG/2 ML AMPUL.NEB. INHALATION (07:05)
[2018-09-27] MEDS: Glucerna Shake 120 ML LIQUID PO ×2 (08:52→12:13)
[2018-09-27] MEDS: Aspirin E.C. 81 MG Tablet PO (08:53)
--- NOTE | 2018-09-27 10:07 | PCM.PN.HOSP ---
Patient Problems: Active and Suspected Problems Sepsis (Acute) UTI (urinary tract infection) (Acute) Subjective: Patient is feeling weak and gets short of breath on walking or mild exertion. Temperature 99.4. No high-grade fever. Blood pressure is elevated. Pulse ox 94% on room air. No tachypnea Vitals/I&O's: Vital Signs Temp Pulse Resp BP Pulse Ox 98.7 F 88 16 172/89 H 94 09/27/18 08:35 09/27/18 08:35 09/27/18 08:35 09/27/18 08:35 09/27/18 08:35 Oxygen Flow Rate (L/min) 1 Oxygen Delivery Method Room Air Weight: 229 lb 0.964 oz Body Mass Index (BMI) 34.8 Finger Stick Blood Glucose 224 Intake and Output for Last 24 Hours 09/25/18 09/26/18 09/27/18 23:59 23:59 23:59 Intake Total 3166.5 / 3166.5 1666 / 1666 770 / 770 Output Total 1100 / 1100 602 / 602 Balance 2066.5 / 2066.5 1064 / 1064 770 / 770 General: Alert, Oriented x3, Cooperative HEENT: Atraumatic, PERRLA, EOMI, Normocephalic Neck: Supple, No JVD, Negative Carotid Bruits Lungs: Clear to auscultation, No rhonchi, No wheeze, No rales, Diminished - Diminished in lung bases Cardiovascular: Regular rate, Regular Rhythm, Normal S1, Normal S2, No murmurs Abdomen: Bowel Sounds Present, Soft, Non Tender, Tender - Patient has lower Urinary tract symptoms including burning micturition. Mild suprapubic tenderness., - - Chronic urinary incontinence Extremities: Capillary Refill Less than 3 Seconds, Edema Skin: No rashes, No breakdown Musculoskeletal: No Tenderness to Palpation of Joints or Extremities, Arthritic Changes Neurological: Cranial nerves II-XII grossly intact Psych/Mental Status: Normal Affect, Appropriate Microbiology Past 72 Hours 09/24/18 15:36 Blood Culture (Wb) - Right Hand Blood Culture - Preliminary Presumptive E. coli 09/24/18 15:44 Blood Culture (Wb) - Left Hand Blood Culture - Preliminary Presumptive E. coli 09/24/18 01:25 Blood Culture (Wb) - Anticubital Left Blood Culture - Final Presumptive E. coli 09/24/18 01:10 Blood Culture (Wb) - Right Forearm Blood Culture - Final Escherichia coli 09/24/18 01:50 Urine Catheter - Catheter Urine Culture - Final Presumptive E. coli Laboratory Results 09/26/18 11:38: POC Glucose 389 H 09/26/18 16:09: POC Glucose 383 H 09/26/18 21:41: POC Glucose 388 H 09/27/18 05:40: WBC 6.1, RBC 4.31, Hgb 11.5 L, Hct 36.1 L, MCV 83.8, MCH 26.7 L, MCHC 31.9 L, RDW 13.4, RDW Differential 39.8, Plt Count 162, MPV 10.2, Immature Gran % (Auto) 0.200, Neut % (Auto) 64.1, Lymph % (Auto) 22.7, Cache % (Auto) 11.7 H, Eos % (Auto) 1.0, Baso % (Auto) 0.3, Absolute Neuts (auto) 3.9, Absolute Lymphs (auto) 1.38, Total Counted Not Reportable 09/27/18 05:40: Sodium 137, Potassium 4.8, Chloride 101, Carbon Dioxide 27.0, Anion Gap 9, BUN 14, Creatinine 1.12 H, Estim Creat Clear Calc 45.13, Est GFR (MDRD) Af Amer 61, Est GFR (MDRD) Non-Af 51 L, BUN/Creatinine Ratio 12.5, Glucose 381 H, Calcium 8.9 09/27/18 06:30: POC Glucose 357 H Current Medications Acetaminophen (Tylenol) 1,000 mg PO TID PRN PRN Reason: FEVER Last Admin: 09/26/18 01:22 Dose: 1,000 mg Albuterol Sulfate (Ventolin Aerosols) 2.5 mg INHALATION Q6HWA.RT [facility] Last Admin: 09/27/18 07:05 Dose: 2.5 mg Albuterol Sulfate (Ventolin Aerosols) 2.5 mg INHALATION Q4H PRN PRN PRN Reason: SHORTNESS OF BREATH Aspirin (Ecotrin) 81 mg PO DAILY@0800 [facility] Last Admin: 09/27/18 08:53 Dose: 81 mg Benzonatate (Tessalon Perle) 100 mg PO TID [facility] Last Admin: 09/27/18 06:29 Dose: 100 mg Budesonide (Pulmicort Aerosol) 0.5 mg INHALATION BID.RT [facility] Last Admin: 09/27/18 07:05 Dose: 0.5 mg Bupropion HCl (Wellbutrin Tablets) 75 mg PO DAILY [facility] Last Admin: 09/26/18 08:37 Dose: 75 mg Clopidogrel Bisulfate (Plavix) 75 mg PO DAILY [facility] Last Admin: 09/26/18 08:39 Dose: 75 mg Dextrose (D50w Syringe) 0 gm IV X1 PRN; Protocol PRN Reason: Hypoglycemia Ferrous Sulfate (Ferrous Sulfate) 325 mg PO DAILY@1200 [facility] Last Admin: 09/26/18 12:06 Dose: 325 mg Fluoxetine HCl (Prozac) 40 mg PO DAILY [facility] Last Admin: 09/26/18 08:37 Dose: 40 mg Glucagon () 1 mg IM .X1 PRN PRN Reason: Hypoglycemia Heparin Sodium (Porcine) (Heparin Na) 5,000 unit SC Q12 [facility] Last Admin: 09/26/18 21:15 Dose: 5,000 unit Ceftriaxone Sodium 2 gm/ (Sodium Chloride) 50 mls @ 100 mls/hr IV Q24 [facility] Last Admin: 09/26/18 12:01 Dose: 100 mls/hr Insulin Glargine (Lantus (Bkc)) 10 units SC QHS [facility] Last Admin: 09/26/18 21:42 Dose: 10 u Insulin Human Lispro (Humalog Kwikpen (Bkc)) 0 unit SQ ACHS [facility]; Protocol Last Admin: 09/27/18 06:31 Dose: 4 units Isosorbide Mononitrate (Imdur) 30 mg PO DAILY [facility] Last Admin: 09/26/18 08:35 Dose: 30 mg Magnesium Hydroxide (Milk Of Magnesia) 30 ml PO DAILY PRN PRN PRN Reason: Constipation Magnesium Oxide (Mag-Ox 400) 400 mg PO DAILY [facility] Last Admin: 09/26/18 08:35 Dose: 400 mg Nutritional Formula (Lactose Free) (Glucerna Shake) 120 ml PO TIDCM [facility] Last Admin: 09/27/18 08:52 Dose: 120 ml Nystatin (Mycostatin Powder) 1 applic TOPICAL BID [facility] Last Admin: 09/26/18 21:15 Dose: 1 applicatio Ondansetron HCl (Zofran) 4 mg IV Q8H PRN PRN PRN Reason: NAUSEA Last Admin: 02/24/19 18:40 Dose: 4 mg Pancrelipase (Creon Dr 12,000 Unit Capsule) 1 capsule PO TIDCM [facility] Last Admin: 09/27/18 08:53 Dose: 1 capsule Pantoprazole Sodium (Protonix) 40 mg PO DAILY [facility] Last Admin: 09/26/18 08:37 Dose: 40 mg Pravastatin Sodium (Pravachol) 40 mg PO QHS [facility] Last Admin: 09/26/18 21:15 Dose: 40 mg Sodium Chloride () 5 - 15 ml IV UD PRN PRN Reason: SALINE FLUSH Last Admin: 09/25/18 18:40 Dose: 10 ml Medical Necessity - Tobacco Use Smoking Status: Current every day smoker Assessment/Plan All Active Problems Sepsis (Acute) UTI (urinary tract infection) (Acute) Chest pain (Resolved) Bright red blood per rectum (Acute) UTI (urinary tract infection) (Resolved) This is a 73-year-old female with past medical history of obesity, hypertension, type II DM, asthma/COPD, CAD status post stents, is being admitted with acute metabolic encephalopathy secondary to sepsis from gram-negative concha bacteremia secondary to UTI. Patient has history of recurrent UTI in the past. Patient had urinary tract symptoms positive of increased frequency, urgency, burning micturition but no hematuria. Patient has seen urologist long time ago about 10 years in [place]. Denies history of obstructive uropathy or lesion occluding stone, tumor or stricture. CT abdomen was negative for acute obstructive uropathy. 1. Acute metabolic encephalopathy secondary to sepsis from UTI: Resolved. Patient is awake and alert x3. hold Lyrica and trazodone. 2. Gram-negative bacteremia/sepsis secondary to E. Coli UTI blood cultures x4 was positive of gram-negative concha, presented E. coli sensitive to cephalosporin. Antibiotic narrowed from Zosyn to Rocephin. Blood culture from 09/26 is pending. 3. Type II DM, blood sugars have been fluctuating, glucose 283. Accu-Chek before meals and at bedtime and cover with NovoLog sliding scale. 4. Hypertension, blood pressure is elevated. On lisinopril 10 mg, carvedilol. Hydralazine 10 mg IV every 4 hourly as needed for systolic blood pressure more than 180 mmHg. home Lisinopril, carvedilol, Terazosin 5. Anxiety/depression, continue on Wellbutrin, trazodone, Prozac 6. Iron deficiency anemia, Hb is stable at 11.8, on iron 7. History of GI bleed, on PPI 8. Brooke intertrigo in abdominal wall folds,, on nystatin powder 9. EMETERIO on CKD stage 3, Cr remains the same, previous creatinine in April 2080 was 0.98 10.DVt PPx- 11. Disposition: Patient wants to go home. PT and OT evaluation. Microbiology Past 72 Hours 09/24/18 15:36 Blood Culture (Wb) - Right Hand Blood Culture - Preliminary Presumptive E. coli 09/24/18 15:44 Blood Culture (Wb) - Left Hand Blood Culture - Preliminary Presumptive E. coli 09/24/18 01:25 Blood Culture (Wb) - Anticubital Left Blood Culture - Final Presumptive E. coli 09/24/18 01:10 Blood Culture (Wb) - Right Forearm Blood Culture - Final Escherichia coli 09/24/18 01:50 Urine Catheter - Catheter Urine Culture - Final Presumptive E. coli Laboratory Results 09/26/18 11:38: POC Glucose 389 H 09/26/18 16:09: POC Glucose 383 H 09/26/18 21:41: POC Glucose 388 H 09/27/18 05:40: WBC 6.1, RBC 4.31, Hgb 11.5 L, Hct 36.1 L, MCV 83.8, MCH 26.7 L, MCHC 31.9 L, RDW 13.4, RDW Differential 39.8, Plt Count 162, MPV 10.2, Immature Gran % (Auto) 0.200, Neut % (Auto) 64.1, Lymph % (Auto) 22.7, Cache % (Auto) 11.7 H, Eos % (Auto) 1.0, Baso % (Auto) 0.3, Absolute Neuts (auto) 3.9, Absolute Lymphs (auto) 1.38, Total Counted Not Reportable 09/27/18 05:40: Sodium 137, Potassium 4.8, Chloride 101, Carbon Dioxide 27.0, Anion Gap 9, BUN 14, Creatinine 1.12 H, Estim Creat Clear Calc 45.13, Est GFR (MDRD) Af Amer 61, Est GFR (MDRD) Non-Af 51 L, BUN/Creatinine Ratio 12.5, Glucose 381 H, Calcium 8.9 09/27/18 06:30: POC Glucose 357 H Clinical Impression(s) from Imaging Studies Abdomen/Pelvis CT 09/24/18 01:11 IMPRESSION: Anterior abdominal wall hernia containing a portion of the transverse colon without mechanical obstruction. No evidence of acute appendicitis or acute obstructive uropathy. Hepatomegaly. Brain CT 09/24/18 01:11 IMPRESSION: No CT evidence of acute infarct or hemorrhage. If there is clinical concern for hyperacute ischemia that is not evident by CT, MRI should be considered if possible.
--- NOTE | 2018-09-27 10:16 | PN_ITS ---
Patient Problems: Active and Suspected Problems Sepsis (Acute) UTI (urinary tract infection) (Acute) Subjective: Patient is feeling weak and gets short of breath on walking or mild exertion. Temperature 99.4. No high-grade fever. Blood pressure is elevated. Pulse ox 94% on room air. No tachypnea Vitals/I&O's: Vital Signs Temp Pulse Resp BP Pulse Ox 98.7 F 88 16 172/89 H 94 09/27/18 08:35 09/27/18 08:35 09/27/18 08:35 09/27/18 08:35 09/27/18 08:35 Oxygen Flow Rate (L/min) 1 Oxygen Delivery Method Room Air Weight: 229 lb 0.964 oz Body Mass Index (BMI) 34.8 Finger Stick Blood Glucose 224 Intake and Output for Last 24 Hours 09/25/18 09/26/18 09/27/18 23:59 23:59 23:59 Intake Total 3166.5 / 3166.5 1666 / 1666 770 / 770 Output Total 1100 / 1100 602 / 602 Balance 2066.5 / 2066.5 1064 / 1064 770 / 770 General: Alert, Oriented x3, Cooperative HEENT: Atraumatic, PERRLA, EOMI, Normocephalic Neck: Supple, No JVD, Negative Carotid Bruits Lungs: Clear to auscultation, No rhonchi, No wheeze, No rales, Diminished - Diminished in lung bases Cardiovascular: Regular rate, Regular Rhythm, Normal S1, Normal S2, No murmurs Abdomen: Bowel Sounds Present, Soft, Non Tender, Tender - Patient has lower Urinary tract symptoms including burning micturition. Mild suprapubic tenderness., - - Chronic urinary incontinence Extremities: Capillary Refill Less than 3 Seconds, Edema Skin: No rashes, No breakdown Musculoskeletal: No Tenderness to Palpation of Joints or Extremities, Arthritic Changes Neurological: Cranial nerves II-XII grossly intact Psych/Mental Status: Normal Affect, Appropriate Microbiology Past 72 Hours 09/24/18 15:36 Blood Culture (Wb) - Right Hand Blood Culture - Preliminary Presumptive E. coli 09/24/18 15:44 Blood Culture (Wb) - Left Hand Blood Culture - Preliminary Presumptive E. coli 09/24/18 01:25 Blood Culture (Wb) - Anticubital Left Blood Culture - Final Presumptive E. coli 09/24/18 01:10 Blood Culture (Wb) - Right Forearm Blood Culture - Final Escherichia coli 09/24/18 01:50 Urine Catheter - Catheter Urine Culture - Final Presumptive E. coli Laboratory Results 09/26/18 11:38: POC Glucose 389 H 09/26/18 16:09: POC Glucose 383 H 09/26/18 21:41: POC Glucose 388 H 09/27/18 05:40: WBC 6.1, RBC 4.31, Hgb 11.5 L, Hct 36.1 L, MCV 83.8, MCH 26.7 L, MCHC 31.9 L, RDW 13.4, RDW Differential 39.8, Plt Count 162, MPV 10.2, Immature Gran % (Auto) 0.200, Neut % (Auto) 64.1, Lymph % (Auto) 22.7, Blaine % (Auto) 11.7 H, Eos % (Auto) 1.0, Baso % (Auto) 0.3, Absolute Neuts (auto) 3.9, Absolute Lymphs (auto) 1.38, Total Counted Not Reportable 09/27/18 05:40: Sodium 137, Potassium 4.8, Chloride 101, Carbon Dioxide 27.0, Anion Gap 9, BUN 14, Creatinine 1.12 H, Estim Creat Clear Calc 45.13, Est GFR (MDRD) Af Amer 61, Est GFR (MDRD) Non-Af 51 L, BUN/Creatinine Ratio 12.5, Glucose 381 H, Calcium 8.9 09/27/18 06:30: POC Glucose 357 H Current Medications Acetaminophen (Tylenol) 1,000 mg PO TID PRN PRN Reason: FEVER Last Admin: 09/26/18 01:22 Dose: 1,000 mg Albuterol Sulfate (Ventolin Aerosols) 2.5 mg INHALATION Q6HWA.RT [facility] Last Admin: 09/27/18 07:05 Dose: 2.5 mg Albuterol Sulfate (Ventolin Aerosols) 2.5 mg INHALATION Q4H PRN PRN PRN Reason: SHORTNESS OF BREATH Aspirin (Ecotrin) 81 mg PO DAILY@0800 [facility] Last Admin: 09/27/18 08:53 Dose: 81 mg Benzonatate (Tessalon Perle) 100 mg PO TID [facility] Last Admin: 09/27/18 06:29 Dose: 100 mg Budesonide (Pulmicort Aerosol) 0.5 mg INHALATION BID.RT [facility] Last Admin: 09/27/18 07:05 Dose: 0.5 mg Bupropion HCl (Wellbutrin Tablets) 75 mg PO DAILY [facility] Last Admin: 09/26/18 08:37 Dose: 75 mg Clopidogrel Bisulfate (Plavix) 75 mg PO DAILY [facility] Last Admin: 09/26/18 08:39 Dose: 75 mg Dextrose (D50w Syringe) 0 gm IV X1 PRN; Protocol PRN Reason: Hypoglycemia Ferrous Sulfate (Ferrous Sulfate) 325 mg PO DAILY@1200 [facility] Last Admin: 09/26/18 12:06 Dose: 325 mg Fluoxetine HCl (Prozac) 40 mg PO DAILY [facility] Last Admin: 09/26/18 08:37 Dose: 40 mg Glucagon () 1 mg IM .X1 PRN PRN Reason: Hypoglycemia Heparin Sodium (Porcine) (Heparin Na) 5,000 unit SC Q12 [facility] Last Admin: 09/26/18 21:15 Dose: 5,000 unit Ceftriaxone Sodium 2 gm/ (Sodium Chloride) 50 mls @ 100 mls/hr IV Q24 [facility] Last Admin: 09/26/18 12:01 Dose: 100 mls/hr Insulin Glargine (Lantus (Bkc)) 10 units SC QHS [facility] Last Admin: 09/26/18 21:42 Dose: 10 u Insulin Human Lispro (Humalog Kwikpen (Bkc)) 0 unit SQ ACHS [facility]; Protocol Last Admin: 09/27/18 06:31 Dose: 4 units Isosorbide Mononitrate (Imdur) 30 mg PO DAILY [facility] Last Admin: 09/26/18 08:35 Dose: 30 mg Magnesium Hydroxide (Milk Of Magnesia) 30 ml PO DAILY PRN PRN PRN Reason: Constipation Magnesium Oxide (Mag-Ox 400) 400 mg PO DAILY [facility] Last Admin: 09/26/18 08:35 Dose: 400 mg Nutritional Formula (Lactose Free) (Glucerna Shake) 120 ml PO TIDCM [facility] Last Admin: 09/27/18 08:52 Dose: 120 ml Nystatin (Mycostatin Powder) 1 applic TOPICAL BID [facility] Last Admin: 09/26/18 21:15 Dose: 1 applicatio Ondansetron HCl (Zofran) 4 mg IV Q8H PRN PRN PRN Reason: NAUSEA Last Admin: 02/24/19 18:40 Dose: 4 mg Pancrelipase (Creon Dr 12,000 Unit Capsule) 1 capsule PO TIDCM [facility] Last Admin: 09/27/18 08:53 Dose: 1 capsule Pantoprazole Sodium (Protonix) 40 mg PO DAILY [facility] Last Admin: 09/26/18 08:37 Dose: 40 mg Pravastatin Sodium (Pravachol) 40 mg PO QHS [facility] Last Admin: 09/26/18 21:15 Dose: 40 mg Sodium Chloride () 5 - 15 ml IV UD PRN PRN Reason: SALINE FLUSH Last Admin: 09/25/18 18:40 Dose: 10 ml Medical Necessity - Tobacco Use Smoking Status: Current every day smoker Assessment/Plan All Active Problems Sepsis (Acute) UTI (urinary tract infection) (Acute) Chest pain (Resolved) Bright red blood per rectum (Acute) UTI (urinary tract infection) (Resolved) This is a 73-year-old female with past medical history of obesity, hypertension, type II DM, asthma/COPD, CAD status post stents, is being admitted with acute metabolic encephalopathy secondary to sepsis from gram-negative concha bacteremia secondary to UTI. Patient has history of recurrent UTI in the past. Patient had urinary tract symptoms positive of increased frequency, urgency, burning micturition but no hematuria. Patient has seen urologist long time ago about 10 years in [place]. Denies history of obstructive uropathy or lesion occluding stone, tumor or stricture. CT abdomen was negative for acute obstructive uropathy. 1. Acute metabolic encephalopathy secondary to sepsis from UTI: Resolved. Patient is awake and alert x3. hold Lyrica and trazodone. 2. Gram-negative bacteremia/sepsis secondary to E. Coli UTI blood cultures x4 was positive of gram-negative concha, presented E. coli sensitive to cephalosporin. Antibiotic narrowed from Zosyn to Rocephin. Blood culture from 09/26 is pending. 3. Type II DM, blood sugars have been fluctuating, glucose 283. Accu-Chek before meals and at bedtime and cover with NovoLog sliding scale. 4. Hypertension, blood pressure is elevated. On lisinopril 10 mg, carvedilol. Hydralazine 10 mg IV every 4 hourly as needed for systolic blood pressure more than 180 mmHg. home Lisinopril, carvedilol, Terazosin 5. Anxiety/depression, continue on Wellbutrin, trazodone, Prozac 6. Iron deficiency anemia, Hb is stable at 11.8, on iron 7. History of GI bleed, on PPI 8. Brooke intertrigo in abdominal wall folds,, on nystatin powder 9. EMETERIO on CKD stage 3, Cr remains the same, previous creatinine in April 2080 was 0.98 10.DVt PPx- 11. Disposition: Patient wants to go home. PT and OT evaluation. Microbiology Past 72 Hours 09/24/18 15:36 Blood Culture (Wb) - Right Hand Blood Culture - Preliminary Presumptive E. coli 09/24/18 15:44 Blood Culture (Wb) - Left Hand Blood Culture - Preliminary Presumptive E. coli 09/24/18 01:25 Blood Culture (Wb) - Anticubital Left Blood Culture - Final Presumptive E. coli 09/24/18 01:10 Blood Culture (Wb) - Right Forearm Blood Culture - Final Escherichia coli 09/24/18 01:50 Urine Catheter - Catheter Urine Culture - Final Presumptive E. coli Laboratory Results 09/26/18 11:38: POC Glucose 389 H 09/26/18 16:09: POC Glucose 383 H 09/26/18 21:41: POC Glucose 388 H 09/27/18 05:40: WBC 6.1, RBC 4.31, Hgb 11.5 L, Hct 36.1 L, MCV 83.8, MCH 26.7 L, MCHC 31.9 L, RDW 13.4, RDW Differential 39.8, Plt Count 162, MPV 10.2, Immature Gran % (Auto) 0.200, Neut % (Auto) 64.1, Lymph % (Auto) 22.7, Blaine % (Auto) 11.7 H, Eos % (Auto) 1.0, Baso % (Auto) 0.3, Absolute Neuts (auto) 3.9, Absolute Lymphs (auto) 1.38, Total Counted Not Reportable 09/27/18 05:40: Sodium 137, Potassium 4.8, Chloride 101, Carbon Dioxide 27.0, Anion Gap 9, BUN 14, Creatinine 1.12 H, Estim Creat Clear Calc 45.13, Est GFR (MDRD) Af Amer 61, Est GFR (MDRD) Non-Af 51 L, BUN/Creatinine Ratio 12.5, Glucose 381 H, Calcium 8.9 09/27/18 06:30: POC Glucose 357 H Clinical Impression(s) from Imaging Studies Abdomen/Pelvis CT 09/24/18 01:11 IMPRESSION: Anterior abdominal wall hernia containing a portion of the transverse colon without mechanical obstruction. No evidence of acute appendicitis or acute obstructive uropathy. Hepatomegaly. Brain CT 09/24/18 01:11 IMPRESSION: No CT evidence of acute infarct or hemorrhage. If there is clinical concern for hyperacute ischemia that is not evident by CT, MRI should be considered if possible.
[2018-09-27] MEDS: Heparin Injection (Vial) 5,000 UNIT/ML VIAL 5000 UNIT SC ×2 (10:57→22:34)
[2018-09-27] MEDS: Isosorbide Mononitrate 30 MG Tablet PO (10:58)
[2018-09-27] MEDS: Magnesium Oxide 400 MG Tablet PO (10:58)
[2018-09-27] MEDS: Nystatin Powder 15gm Bottle 1 APPLIC TOPICAL ×2 (10:58→20:39)
[2018-09-27] MEDS: Clopidogrel Bisulfate 75 MG Tablet PO (10:59)
[2018-09-27] MEDS: Pantoprazole Sodium 40 MG Tablet PO (10:59)
[2018-09-27] MEDS: buPROPion 75 MG Tablet PO (10:59)
[2018-09-27] MEDS: FLUoxetine 20 MG Capsule 40 MG PO (10:59)
[2018-09-27] MEDS: Lisinopril 10 MG Tablet PO (11:02)
[2018-09-27] MEDS: 0.9% NaCl Peripheral Flush Adult/Peds IV ×3 (11:02→19:52)
--- NOTE | 2018-09-27 11:28 | PN.ID_ITS ---
Patient Problems: Active and Suspected Problems Sepsis (Acute) UTI (urinary tract infection) (Acute) Subjective: Feeling better, still weak, no fever. Chronic diarrhea. - Physical Exam General: Alert, Cooperative, No apparent distress Lungs: Clear to auscultation, Normal air movement Cardiovascular: Regular rate, Regular Rhythm Abdomen: Soft, Non Tender, Non-Distended Skin: No rashes Vital Signs Temp Pulse Resp BP Pulse Ox 98.7 F 88 16 172/89 H 94 09/27/18 08:35 09/27/18 08:35 09/27/18 08:35 09/27/18 08:35 09/27/18 08:35 Oxygen Flow Rate (L/min) 1 Oxygen Delivery Method Room Air Weight: 103.9 kg Body Mass Index (BMI) 34.8 Finger Stick Blood Glucose 224 Intake and Output for Last 24 Hours 09/25/18 09/26/18 09/27/18 23:59 23:59 23:59 Intake Total 3166.5 / 3166.5 1666 / 1666 770 / 770 Output Total 1100 / 1100 602 / 602 Balance 2066.5 / 2066.5 1064 / 1064 770 / 770 Microbiology Past 72 Hours 09/24/18 15:36 Blood Culture - Preliminary Blood Culture (Wb) - Right Hand Presumptive E. coli 09/24/18 15:44 Blood Culture - Preliminary Blood Culture (Wb) - Left Hand Presumptive E. coli 09/24/18 01:25 Blood Culture - Final Blood Culture (Wb) - Anticubital Left Presumptive E. coli 09/24/18 01:10 Blood Culture - Final Blood Culture (Wb) - Right Forearm Escherichia coli 09/24/18 01:50 Urine Culture - Final Urine Catheter - Catheter Presumptive E. coli Laboratory Tests Past 24 Hrs 09/27/18 09/27/18 05:40 05:40 WBC 6.1 RBC 4.31 Hgb 11.5 L Hct 36.1 L MCV 83.8 MCH 26.7 L MCHC 31.9 L RDW 13.4 RDW Differential 39.8 Plt Count 162 MPV 10.2 Immature Gran % (Auto) 0.200 Neut % (Auto) 64.1 Lymph % (Auto) 22.7 [place] % (Auto) 11.7 H Eos % (Auto) 1.0 Baso % (Auto) 0.3 Absolute Neuts (auto) 3.9 Absolute Lymphs (auto) 1.38 Total Counted Not Reportable Sodium 137 Potassium 4.8 Chloride 101 Carbon Dioxide 27.0 Anion Gap 9 BUN 14 Creatinine 1.12 H Estim Creat Clear Calc 45.13 Est GFR (MDRD) Af Amer 61 Est GFR (MDRD) Non-Af 51 L BUN/Creatinine Ratio 12.5 Glucose 381 H Calcium 8.9 POC Glucose 09/27/18 09/26/18 09/26/18 06:30 21:41 16:09 POC Glucose 357 H 388 H 383 H 09/26/18 11:38 POC Glucose 389 H Medical Necessity - Tobacco Use Smoking Status: Current every day smoker Route of nutrition/ use of supplements: [] Nutritional Intake: [] IV Site: [] Alvarez Catheter: [] - Assessment/Plan Antibiotics: [] Assessment/Plan: [] Active and Suspected Problems Sepsis (Acute) UTI (urinary tract infection) (Acute) sepsis due to ecoli bacteremia from urinary source - improving. Narrowed zosyn to ceftriaxone. Plan will be for home with po keflex 500mg tid for 7 more days. Will follow
--- NOTE | 2018-09-27 11:48 | CASEMGMT ---
Social Work Note CANDIE faxed updated clinicals to Natalie at [facility]. CANDIE placed a call to Natalie in admissions cell phone ([phone]) requesting her to call this worker back. CANDIE met with pt. CANDIE updated pt that [facility] is able to accept pending pre-cert. SW asked pt how she is feeling today. Pt states that she is feeling ok today. SW asked about any financial concerns regarding her daughter. Pt states that she has most of her mail delivered to her cousin's house and any kind of checks get delivered to her cousin's house. Pt states that she has her own bank card and no one is allowed to use it. Pt states she has no financial concerns. CANDIE received call from Natalie at [facility] stating she hasn't heard yet from pt's insurance. CANDIE informed Natalie that this worker faxed updated clinicals and once PT/OT works with pt today this worker will fax updated PT/OT. Plan: [facility] pending pre-cert Stacy Lacey [employer] CONTR[employer]ER, [employer] MECH[employer]IC
[2018-09-27 12:06] LABS: Bedside Glucose > 500 mg/dL (70-110)
[2018-09-27 12:09] LABS: Glucose 487 mg/dL (74-106)
--- NOTE | 2018-09-27 15:12 | CASEMGMT ---
Social Work Note SW faxed PT/OT notes to Natalie at [facility]. Plan: [facility] pending pre-cert Stacy Lacey STORE PROMOTER, BINGO MANAGER
[2018-09-27 16:11] LABS: Bedside Glucose 410 mg/dL (70-110)
[2018-09-27] MEDS: Insulin Lispro 100 UNIT/ML INSULN.PEN 15 UNIT SC (16:16)
--- NOTE | 2018-09-27 16:26 | CASEMGMT ---
Social Work Note CANDIE received message from [facility] at [facility] stating she received pre-cert. Physician had mentioned earlier today that pt needed repeat blood cultures and wouldn't be ready for discharge today. CANDIE placed a call back to [facility] at [facility] and informed her pt is not ready yet today and asked how long pre-cert is good for you. Love states that she thinks it is good for 48 hours but she can confirm with [facility] tomorrow. Love states she did get the ok for pt to discharge tomorrow still. CANDIE to update [facility] tomorrow when pt will be medically cleared. Plan: [facility] once medically cleared Stacy Lacey [employer]CRA[employer], TEMPLATE MAKER
[2018-09-27 16:35] LABS: Bedside Glucose 401 mg/dL (70-110)
--- NOTE | 2018-09-27 16:47 | EKG12_ITS ---
Test Reason : SOB Blood Pressure : / mmHG Vent. Rate : 077 BPM Atrial Rate : 077 BPM P-R Int : 172 ms QRS Dur : 086 ms QT Int : 394 ms P-R-T Axes : 026 -13 046 degrees QTc Int : 445 ms Normal sinus rhythm Voltage criteria for left ventricular hypertrophy Abnormal ECG When compared with ECG of 24-SEP-2018 01:32, Vent. rate has decreased BY 41 BPM T wave inversion no longer evident in Lateral leads Confirmed by SOPHIA PETE, SHERRI ([id number]), editorial project manager UDAY KIM ([id number]) on 09/29/2018 4:08:17 PM Referred By: TEMITOPE Confirmed By:SHERRI CORTES MD
--- NOTE | 2018-09-27 16:47 | CT_ITS ---
STUDY: CT BRAIN WITHOUT CONTRAST REASON FOR EXAM: Female, 73 years old. Change in mental status. RADIATION DOSAGE (If Supplied By Facility): CTDIvol = ( 44.99 ) mGy, DLP = ( 798.92 ) mGycm TECHNIQUE: Transaxial CT imaging of the brain was performed without administration of intravenous contrast material. Individualized dose optimization techniques were used for this CT. COMPARISON: 09/24/2018. FINDINGS: Normal soft tissue structures. Normal calvarium. Normal size ventricles and extra-axial spaces for the patient's age. There are areas of decreased attenuation within the white matter tracts of the supratentorial brain, consistent with microvascular disease changes. Normal basal ganglia and thalami. Normal brainstem. Normal cerebellum. There is no intracranial hemorrhage. There are no findings of an acute ischemic infarction. Normal visualized paranasal sinuses. CT/Brain/Head without Contrast IMPRESSION: Mild microvascular ischemic changes. No acute process. Electronically Signed: Elo Hester MD at 17:50 EST Tel , Service support ,
--- NOTE | 2018-09-27 17:10 | RAD_ITS ---
STUDY: X-RAY CHEST REASON FOR EXAM: Female, 73 years old. SOB. TECHNIQUE: Portable chest. COMPARISON: 09/24/2018. 09/27/2017. FINDINGS: There is no pleural effusion. There is mild subsegmental atelectasis versus fibrosis in the right lung base, without significant change compared to the prior study. Normal size heart. Normal mediastinum and estephania. Normal visualized pulmonary arteries. Normal visualized aortic arch and descending thoracic aorta. There is a moderate thoracic dextroscoliosis. Soft tissues and bony structures are otherwise unremarkable. RAD/Chest 1 View (Portable) IMPRESSION: Fibrosis is favored over atelectasis in the right lung base. Otherwise, no acute findings. Scoliosis. Electronically Signed: Elo Hester MD at 20:07 EST Tel , Service support ,
[2018-09-27] MEDS: hydrALAZINE 20 MG/ML Vial 10 MG IV (17:32)
--- NOTE | 2018-09-27 17:40 | PCM.HOSP.N ---
Hospitalist Note The nurse called me to evaluate as the patient was more obtunded, drowsy and lethargic. Seen and examined in the evening and patient is more lethargic than in the morning. She is obtunded. On further questioning she states he feels generalized weakness but no focal weakness. Volume of his speech is low. Does not have focal neurological sign but seems subtle right sided facial droop. Since chronic both lower extremity weakness secondary to arthritis and she is on wheeled walker. Heart rate is 81/min. Blood pressure 181/81, respiratory rate 16, pulse ox 98% on room air. CBC, CMP, troponin, magnesium, CPK, twelve-lead EKG, chest x-ray portable and CT chest ordered. IV fluid normal saline 500 mL bolus and then 100 mils per hour.. There is no stroke, WILL decrease of blood pressure. She is on ceftriaxone 2 g daily and DVT prophylaxis.
[2018-09-27 17:51] LABS: Base Excess 1 mmol/L (-2 to +2); Bicarbonate 25.2 mmol/L (22-26); Blood Gas Specimen Type ART; O2 Delivery Device Room Air; PO2 72 mmHG (75-100); SITE L Radial; SO2 95 % (95-99); Time Given 1747; Total Carbon Dioxide 26 mmol/L; pCO2 38.7 mmHg (35-45); pH 7.42 (7.35-7.45)
[2018-09-27 18:15] LABS: Absolute Lymphocyte Count 1.73 X10^3/ul (0.83-4.51); Absolute Neutrophil Count 3.8 X10^3/uL (2.0-7.7); Basophil# 0.03 X10^3/uL; Basophil% 0.5 % (0-1); Eosinophil# 0.07 X10^3/uL; Eosinophils% 1.1 % (0-5); Hematocrit 36.6 % (37-47); Hemoglobin 11.6 g/dl (12.0-15.0); Lymphocyte # 1.73 X10^3/ul (4.0); Mean Corp Hgb Conc 31.7 g/gl (32-36); Mean Corpuscular Volume 81.9 fL (81-99); Mean Platelet Vol. 9.7 fl (6.2-12.0); Monocyte# 0.54 X10^3/uL; Monocyte% 8.8 % (0-10); Neutrophil # 3.79 X10^3/uL (2.7-7.7); Neutrophil % 61.4 % (47-70); POSITIVE COUNT NO; POSITIVE DIFFERENTIAL NO; POSITIVE MORPHOLOGY NO; Platelet Count 152 K/mm3 (150-450); RBC Distribution Width CV 13.5 % (11.6-14.6); RBC Distribution Width SD 40.7 fl (35.1-43.9); Red Blood Count 4.47 M/mm3 (4.2-5.4); White Blood Count 6.2 K/mm3 (4.4-11.0)
[2018-09-27 18:38] LABS: ALB/GLOB Ratio 0.6 RATIO (0.9-2.4); AST(SGOT) 14 U/L (15-37); Alanine Aminotransfer ALT/SGPT 16 U/L (13-56); Albumin, Serum 2.5 g/dL (3.2-5.0); Alkaline Phosphatase 146 U/L (45-117); Anion Gap 6 (5-15); BUN 14 mg/dL (7-18); CPK Total, Creatine Kinase 16 U/L (26-192); Calcium,Total 8.8 mg/dL (8.5-10.1); Chloride 102 mmol/L (98-107); Creatinine, Serum 1.08 mg/dL (0.55-1.02); EST Glomerular Filtration Rate 53 mL/min (>60); Est Glom Filt Rate - Afr Amer 64 mL/min (>60); Globulin 4.1 g/dL (2.2-4.2); Glucose 291 mg/dL (74-106); Magnesium 1.6 mg/dL (1.6-2.6); Potassium 3.8 mmol/L (3.5-5.1); Protein, Total 6.6 g/dL (6.4-8.2); Sodium Level 134 mmol/L (136-145)
[2018-09-27] MEDS: 0.9% Normal Saline 1,000 ML 100 ML IV (18:45)
--- NOTE | 2018-09-27 19:04 | NURSING ---
very difficult to perform NIH, patient unable to follow commands or make conversation.
--- NOTE | 2018-09-27 19:29 | NURSING ---
daughter phoned about patient transfer to PCU
[2018-09-27] MEDS: Furosemide 40 MG/4 ML Vial IV (19:52)
[2018-09-27 23:10] LABS: Bedside Glucose 312 mg/dL (70-110)
[2018-09-27] MEDS: Acetaminophen 650 MG Suppository RECTAL (23:33)
[2018-09-28] VITALS (16 sets, daily range): BP systolic 132–186; BP diastolic 48–76; PULSE 75–116; RESP 12–20; TEMP 36.8–37; O2SAT 92–97
[2018-09-28] MEDS: hydrALAZINE 20 MG/ML Vial 10 MG IV
[2018-09-28] MEDS: 0.9% NaCl Peripheral Flush Adult/Peds IV ×2 (00:01→23:27)
[2018-09-28] MEDS: Ondansetron 4 MG/2 ML Vial IV (00:05)
[2018-09-28 00:36] LABS: Bedside Glucose 279 mg/dL (70-110)
--- NOTE | 2018-09-28 03:55 | NURSING ---
00:05 Family at bedside. Pt had been talking but stopped and was observed to be staring at something across the room for about 30-40 seconds. After pt was touched on the shoulder, slightly shaken and name called out , she turned her gaze to this RN at the side of the bed and came out of the stare. Pt did this twice within a 5 minute period. Speech was noted to be clear. Pt was able to identify her name but appeared sleepy and did not want to answer questions or follow commands after that. Pt would not respond to family talking to her.
[2018-09-28] MEDS: Heparin Injection (Vial) 5,000 UNIT/ML VIAL 5000 UNIT SC ×2 (06:25→14:50)
[2018-09-28] MEDS: Albuterol 2.5 MG/3 ML VIAL.NEB. INHALATION ×3 (06:43→19:35)
[2018-09-28] MEDS: Budesonide Respules 0.5 MG/2 ML AMPUL.NEB. INHALATION ×2 (06:44→19:35)
[2018-09-28 07:11] LABS: Bedside Glucose 349 mg/dL (70-110)
--- NOTE | 2018-09-28 07:15 | NURSING ---
NIH difficult to perform, pt is very lethargic, unable to follow commands.
[2018-09-28] MEDS: Insulin Lispro 100 UNIT/ML INSULN.PEN SQ ×4 (07:48→21:41)
--- NOTE | 2018-09-28 08:22 | MRI_ITS ---
STUDY: MRI BRAIN WITHOUT CONTRAST REASON FOR EXAM: Female, 73 years old. Altered metal status and confusion TECHNIQUE: Standardized multiplanar fat and water weighted pulse sequences were obtained. COMPARISON: CT 09/27/2018 FINDINGS: Normal size of the ventricles and extra-axial spaces for the patient's age. Mild microangiopathic white matter disease. Normal bilateral basal ganglia. Normal thalami. There is no extra-axial fluid accumulation. Normal flow voids within the major intracranial circulation suggesting patency by spin echo criteria. Normal sella turcica, pituitary gland, infundibular stalk, optic chiasm and hypothalamus. Normal tectal plate and pineal gland. Normal midbrain, irving and medulla. Normal cerebellum. Normal basal cisterns. Normal bilateral temporal bones. Normal bilateral internal auditory canals. There are bilateral ocular lens implants with otherwise normal intraorbital contents. Normal visualized paranasal sinuses. Left mastoid sinus disease. Hyperostosis frontalis interna. Right frontal bone hemangioma. Normal visualized soft tissue structures. Normal visualized upper cervical spine. MRI/Brain without Contrast IMPRESSION: No evidence of acute infarct or hemorrhage. Mild microangiopathic white matter disease. Electronically Signed: Arun Fonseca MD at 10:16 EST Tel , Service support ,
--- NOTE | 2018-09-28 08:26 | PN_ITS ---
Patient Problems: Active and Suspected Problems Sepsis (Acute) UTI (urinary tract infection) (Acute) Mental status alteration (Acute) Subjective: Patient is drowsy and lethargic in the morning. She wakes up on verbal commands. Follow simple instructions. CT head does not show acute change. MRI was ordered in the morning. Neurology consult requested. Vitals/I&O's: Vital Signs Temp Pulse Resp BP Pulse Ox 98.4 F 116 H 16 139/57 H 93 09/28/18 07:20 09/28/18 07:30 09/28/18 07:20 09/28/18 07:20 09/28/18 07:20 Oxygen Flow Rate (L/min) 1 Oxygen Delivery Method Room Air Weight: 229 lb 0.964 oz Body Mass Index (BMI) 34.8 Finger Stick Blood Glucose 224 Intake and Output for Last 24 Hours 09/26/18 09/27/18 09/28/18 23:59 23:59 23:59 Intake Total 1666 / 1666 990 / 990 0 / 0 Output Total 602 / 602 Balance 1064 / 1064 990 / 990 0 / 0 General: Confused, Disoriented, Lethargic HEENT: Atraumatic, PERRLA, EOMI, Normocephalic, - - On confrontation test no significant peripheral loss of vision Neck: Supple, No JVD, Negative Carotid Bruits Lungs: No rhonchi, No wheeze, No rales, Diminished Cardiovascular: Regular rate, Regular Rhythm, Normal S1, Normal S2, No murmurs Abdomen: Bowel Sounds Present, Soft, Non Tender, Non-Distended Extremities: Capillary Refill Less than 3 Seconds, Edema Skin: No rashes, No breakdown Musculoskeletal: Arthritic Changes, Muscle Wasting, - - Generalized bilateral lower extremity weakness, chronic in nature patient on Rollator. Neurological: Facial Droop - Subtle right-sided facial droop, unclear acute or chronic, Unsteady Gait, - Microbiology Past 72 Hours 09/24/18 15:36 Blood Culture (Wb) - Right Hand Blood Culture - Preliminary Presumptive E. coli 09/24/18 15:44 Blood Culture (Wb) - Left Hand Blood Culture - Preliminary Presumptive E. coli 09/24/18 01:25 Blood Culture (Wb) - Anticubital Left Blood Culture - Final Presumptive E. coli 09/24/18 01:10 Blood Culture (Wb) - Right Forearm Blood Culture - Final Escherichia coli 09/24/18 01:50 Urine Catheter - Catheter Urine Culture - Final Presumptive E. coli Laboratory Results 09/27/18 11:22: POC Glucose > 500 H* 09/27/18 11:32: Glucose 487 H* 09/27/18 16:02: POC Glucose 410 H 09/27/18 16:27: POC Glucose 401 H 09/27/18 17:48: Specimen Type ART, Sample Site L Radial, pH 7.42, Bicarbonate Actual 25.2, POC Total CO2 26, Base Excess 1, O2 Saturation 95, ABG pCO2 38.7, ABG pO2 72 L, Derrick Test NA, O2 Delivery Device Room Air, Blood Gas Notified Whom JAVIER PETE, Blood Gas Notified Time 17409/27/18 17:56: WBC 6.2, RBC 4.47, Hgb 11.6 L, Hct 36.6 L, MCV 81.9, MCH 26.0 L, MCHC 31.7 L, RDW 13.5, RDW Differential 40.7, Plt Count 152, MPV 9.7, Immature Gran % (Auto) 0.200, Neut % (Auto) 61.4, Lymph % (Auto) 28.0, [place] % (Auto) 8.8, Eos % (Auto) 1.1, Baso % (Auto) 0.5, Absolute Neuts (auto) 3.8, Absolute Lymphs (auto) 1.73, Total Counted Not Reportable 09/27/18 17:56: B-Natriuretic Peptide 110.0 H 09/27/18 18:05: Sodium 134 L, Potassium 3.8, Chloride 102, Carbon Dioxide 26.0, Anion Gap 6, BUN 14, Creatinine 1.08 H, Estim Creat Clear Calc 46.80, Est GFR (MDRD) Af Amer 64, Est GFR (MDRD) Non-Af 53 L, BUN/Creatinine Ratio 13.0, Glucose 291 H, Calcium 8.8, Magnesium 1.6, Total Bilirubin 0.30, AST 14 L, ALT 16, Alkaline Phosphatase 146 H, Total Creatine Kinase 16 L, Troponin I 0.034, Total Protein 6.6, Albumin 2.5 L, Globulin 4.1, Albumin/Globulin Ratio 0.6 L 09/27/18 22:21: POC Glucose 312 H 09/28/18 00:16: POC Glucose 279 H 09/28/18 07:04: POC Glucose 349 H Current Medications Acetaminophen (Tylenol) 1,000 mg PO TID PRN PRN Reason: FEVER Last Admin: 09/26/18 01:22 Dose: 1,000 mg Acetaminophen (Tylenol) 650 mg RECTAL Q6H PRN PRN PRN Reason: PAIN Last Admin: 09/27/18 23:33 Dose: 650 mg Albuterol Sulfate (Ventolin Aerosols) 2.5 mg INHALATION Q6HWA.RT [facility] Last Admin: 09/28/18 06:43 Dose: 2.5 mg Albuterol Sulfate (Ventolin Aerosols) 2.5 mg INHALATION Q4H PRN PRN PRN Reason: SHORTNESS OF BREATH Aspirin (Ecotrin) 81 mg PO DAILY@0800 [facility] Last Admin: 09/27/18 08:53 Dose: 81 mg Benzonatate (Tessalon Perle) 100 mg PO TID [facility] Last Admin: 09/28/18 06:24 Dose: Not Given Budesonide (Pulmicort Aerosol) 0.5 mg INHALATION BID.RT [facility] Last Admin: 09/28/18 06:44 Dose: 0.5 mg Clopidogrel Bisulfate (Plavix) 75 mg PO DAILY [facility] Last Admin: 09/27/18 10:59 Dose: 75 mg Dextrose (D50w Syringe) 0 gm IV X1 PRN; Protocol PRN Reason: Hypoglycemia Ferrous Sulfate (Ferrous Sulfate) 325 mg PO DAILY@1200 [facility] Last Admin: 09/27/18 12:10 Dose: Not Given Glucagon () 1 mg IM .X1 PRN PRN Reason: Hypoglycemia Heparin Sodium (Porcine) (Heparin Na) 5,000 unit SC Q8 [facility] Last Admin: 09/28/18 06:25 Dose: 5,000 unit Hydralazine HCl (Apresoline Iv) 10 mg IV Q4H PRN PRN PRN Reason: SBP>180 mmhg Last Admin: 09/28/18 00:00 Dose: 10 mg Ceftriaxone Sodium 2 gm/ (Sodium Chloride) 50 mls @ 100 mls/hr IV Q24 [facility] Last Admin: 09/27/18 10:57 Dose: 100 mls/hr Sodium Chloride () 1,000 mls @ 75 mls/hr IV .[id number] [facility] Insulin Glargine (Lantus (Bkc)) 10 units SC BREAKFAST [facility] Last Admin: 09/28/18 07:48 Dose: 10 u Insulin Glargine (Lantus (Bkc)) 15 units SC QHS [facility] Last Admin: 09/27/18 22:34 Dose: 15 u Insulin Human Lispro (Humalog Kwikpen (Bkc)) 0 unit SQ ACHS [facility]; Protocol Last Admin: 09/28/18 07:48 Dose: 8 u Insulin Human Lispro (Humalog Kwikpen (Bk)) 15 unit SC TIDAC [facility] Last Admin: 09/28/18 07:44 Dose: Not Given Isosorbide Mononitrate (Imdur) 30 mg PO DAILY [facility] Last Admin: 09/27/18 10:58 Dose: 30 mg Lisinopril (Zestril) 10 mg PO DAILY [facility] Last Admin: 09/27/18 11:02 Dose: 10 mg Magnesium Hydroxide (Milk Of Magnesia) 30 ml PO DAILY PRN PRN PRN Reason: Constipation Magnesium Oxide (Mag-Ox 400) 400 mg PO DAILY [facility] Last Admin: 09/27/18 10:58 Dose: 400 mg Nitroglycerin (Nitrostat) 0.4 mg SUBLINGUAL Q5M PRN PRN Reason: CHEST PAIN Nutritional Formula (Lactose Free) (Glucerna Shake) 120 ml PO TIDCM [facility] Last Admin: 09/28/18 07:45 Dose: Not Given Nystatin (Mycostatin Powder) 1 applic TOPICAL BID [facility] Last Admin: 09/27/18 20:39 Dose: 1 applicatio Ondansetron HCl (Zofran) 4 mg IV Q8H PRN PRN PRN Reason: NAUSEA Last Admin: 09/28/18 00:05 Dose: 4 mg Pancrelipase (Creon Dr 12,000 Unit Capsule) 1 capsule PO TIDCM [facility] Last Admin: 09/28/18 07:45 Dose: Not Given Pantoprazole Sodium (Protonix) 40 mg PO DAILY [facility] Last Admin: 09/27/18 10:59 Dose: 40 mg Pravastatin Sodium (Pravachol) 40 mg PO QHS [facility] Last Admin: 09/27/18 21:48 Dose: Not Given Sodium Chloride () 5 - 15 ml IV UD PRN PRN Reason: SALINE FLUSH Last Admin: 09/28/18 00:01 Dose: 10 ml Medical Necessity - Tobacco Use Smoking Status: Current every day smoker Assessment/Plan All Active Problems Sepsis (Acute) UTI (urinary tract infection) (Acute) Mental status alteration (Acute) Chest pain (Resolved) Bright red blood per rectum (Acute) UTI (urinary tract infection) (Resolved) This is a 73-year-old female with past medical history of obesity, hypertension, type II DM, asthma/COPD, CAD status post stents, is being admitted with acute metabolic encephalopathy secondary to sepsis from gram-negative concha bacteremia secondary to UTI. Patient has history of recurrent UTI in the past. Patient had urinary tract symptoms positive of increased frequency, urgency, burning micturition but no hematuria. Patient has seen urologist long time ago about 10 years in [place]. Denies history of obstructive uropathy or lesion occluding stone, tumor or stricture. CT abdomen was negative for acute obstructive uro mabel. 1. Acute change in mental status, most probably secondary to metabolic/toxic encephalopathy secondary to sepsis from UTI: The patient was transferred from [facility] to [facility] on 09/27/2018 evening. In the morning patient was obtunded but in afternoon she is more awake and alert. MRI brain Does not show acute change. Patient also had ABG And showed 7.42/30 9/72 on room air therefore no significant hypercarbia or hypoxia. hold Wellbutrin, Lyrica and trazodone. Neurology consult reviewed and appreciated. Fall precaution. 2. Gram-negative bacteremia/sepsis secondary to E. Coli UTI blood cultures x4 was positive of gram-negative concha, presented E. coli sensitive to cephalosporin. Antibiotic narrowed from Zosyn to Rocephin. Blood culture from 09/26 is negative for 48 hours 3. Type II DM, blood sugars have been fluctuating, glucose 283. Accu-Chek before meals and at bedtime and cover with NovoLog sliding scale. 4. Hypertension, blood pressure is elevated. On lisinopril 10 mg, carvedilol. Hydralazine 10 mg IV every 4 hourly as needed for systolic blood pressure more than 180 mmHg. home Lisinopril, carvedilol, Terazosin 5. Anxiety/depression, continue on Wellbutrin, trazodone, Prozac 6. Iron deficiency anemia, Hb is stable at 11.8, on iron 7. History of GI bleed, on PPI 8. Brooke intertrigo in abdominal wall folds,, on nystatin powder 9. EMETERIO on CKD stage 3, Cr remains the same, previous creatinine in April 2080 was 0.98 10.DVt PPx-Lovenox 40 mg subcu daily. Discontinue if platelet count drops less than 50,000 or hemoglobin less than 8 g% 11. Disposition: Patient wants to go home. PT and OT evaluation. Microbiology Past 72 Hours 09/24/18 15:36 Blood Culture (Wb) - Right Hand Blood Culture - Preliminary Presumptive E. coli 09/24/18 15:44 Blood Culture (Wb) - Left Hand Blood Culture - Preliminary Presumptive E. coli 09/24/18 01:25 Blood Culture (Wb) - Anticubital Left Blood Culture - Final Presumptive E. coli 09/24/18 01:10 Blood Culture (Wb) - Right Forearm Blood Culture - Final Escherichia coli 09/24/18 01:50 Urine Catheter - Catheter Urine Culture - Final Presumptive E. coli Laboratory Results 09/26/18 11:38: POC Glucose 389 H 09/26/18 16:09: POC Glucose 383 H 09/26/18 21:41: POC Glucose 388 H 09/27/18 05:40: WBC 6.1, RBC 4.31, Hgb 11.5 L, Hct 36.1 L, MCV 83.8, MCH 26.7 L, MCHC 31.9 L, RDW 13.4, RDW Differential 39.8, Plt Count 162, MPV 10.2, Immature Gran % (Auto) 0.200, Neut % (Auto) 64.1, Lymph % (Auto) 22.7, [place] % (Auto) 11.7 H, Eos % (Auto) 1.0, Baso % (Auto) 0.3, Absolute Neuts (auto) 3.9, Absolute Lymphs (auto) 1.38, Total Counted Not Reportable 09/27/18 05:40: Sodium 137, Potassium 4.8, Chloride 101, Carbon Dioxide 27.0, Anion Gap 9, BUN 14, Creatinine 1.12 H, Estim Creat Clear Calc 45.13, Est GFR (MDRD) Af Amer 61, Est GFR (MDRD) Non-Af 51 L, BUN/Creatinine Ratio 12.5, Glucose 381 H, Calcium 8.9 09/27/18 06:30: POC Glucose 357 H Clinical Impression(s) from Imaging Studies Abdomen/Pelvis CT 09/24/18 01:11 IMPRESSION: Anterior abdominal wall hernia containing a portion of the transverse colon without mechanical obstruction. No evidence of acute appendicitis or acute obstructive uropathy. Hepatomegaly. Brain CT 09/24/18 01:11 IMPRESSION: No CT evidence of acute infarct or hemorrhage. If there is clinical concern for hyperacute ischemia that is not evident by CT, MRI should be considered if possible. Code Visit Inpatient E&M: 69922 Subs Hosp L2
[2018-09-28 08:46] LABS: Absolute Lymphocyte Count 1.48 X10^3/ul (0.83-4.51); Absolute Neutrophil Count 5.5 X10^3/uL (2.0-7.7); Basophil# 0.06 X10^3/uL; Basophil% 0.8 % (0-1); Eosinophil# 0.06 X10^3/uL; Eosinophils% 0.8 % (0-5); Hematocrit 40.8 % (37-47); Hemoglobin 12.7 g/dl (12.0-15.0); Lymphocyte # 1.48 X10^3/ul (4.0); Lymphocyte % 19.2 % (19-41); Mean Corp Hgb Conc 31.1 g/gl (32-36); Mean Corpuscular Hgb 25.7 pg (27.0-32.0); Mean Corpuscular Volume 82.4 fL (81-99); Mean Platelet Vol. 9.7 fl (6.2-12.0); Monocyte# 0.62 X10^3/uL; Monocyte% 8.1 % (0-10); Neutrophil # 5.46 X10^3/uL (2.7-7.7); Neutrophil % 70.8 % (47-70); Platelet Count 190 K/mm3 (150-450); RBC Distribution Width CV 13.6 % (11.6-14.6); RBC Distribution Width SD 41.1 fl (35.1-43.9); Red Blood Count 4.95 M/mm3 (4.2-5.4); White Blood Count 7.7 K/mm3 (4.4-11.0)
[2018-09-28 08:48] LABS: POSITIVE COUNT NO; POSITIVE DIFFERENTIAL NO; POSITIVE MORPHOLOGY NO
[2018-09-28 09:39] LABS: Anion Gap 14 (5-15); BUN 16 mg/dL (7-18); Calcium,Total 9.4 mg/dL (8.5-10.1); Chloride 100 mmol/L (98-107); Creatinine, Serum 1.14 mg/dL (0.55-1.02); EST Glomerular Filtration Rate 50 mL/min (>60); Est Glom Filt Rate - Afr Amer 60 mL/min (>60); Estimated Creatinine Clearance 44.34 ml/min; Glucose 358 mg/dL (74-106); Potassium 3.8 mmol/L (3.5-5.1); Sodium Level 138 mmol/L (136-145)
--- NOTE | 2018-09-28 10:33 | CASEMGMT ---
SW spoke with physician and patient is not ready for d/c today. CANDIE called Love at [facility] and let her know this information. She will let shoe caser at [facility] know and ask if they could possibly extend the approval until tomorrow. CANDIE told her SW will fax updates and be in touch with her when SW knows more. Updates faxed to [facility]. Ciera HARRIS MSW
[2018-09-28] MEDS: Nystatin Powder 15gm Bottle 1 APPLIC TOPICAL ×2 (10:49→21:44)
[2018-09-28 11:01] LABS: Bedside Glucose 318 mg/dL (70-110)
--- NOTE | 2018-09-28 12:30 | PCM.CONS.GEN ---
Problem List (1) Mental status alteration Status: Acute Reason for Consult Date of Consultation: 09/28/18 Reason for Consultation: AMS History of Present Illness: The patient is a 73 year old F with PMH HTN, HLD, DM, CKD, CAD s/p stents, H/O DVT, chronic urinary incontinence admitted with confusion and fever. Patient was found to have UTI with E.Coli septicemia. Neurology consulted for mental status change. Per nurse taking care of the patient she could have waxing waning mental status change. At present she is at baseline, is awake and alert, denies any FLETCHER, dizziness, focal motor weakness, sensory loss, visual disturbances or speech disturbances. MRI brain done this morning (09/28/2018) reported nothing acute. Per patient she lives with her daughter, denies any frequent falls, does use rollator for ambulating, does not drive. She denies any witnessed seizures. [] Past Medical History Past Medical History (Chronic Problems): Chronic Problems CKD (chronic kidney disease) (Chronic) Obesity (Chronic) Dyslipidemia (Chronic) Carotid artery disorder (Chronic) CAD (coronary artery disease) (Chronic) Essential (primary) hypertension (Chronic) DM2 (diabetes mellitus, type 2) (Chronic) Allergies donepezil [From Aricept] Adverse Reaction (Verified 09/24/18 01:07) Other meperidine [From Demerol] Adverse Reaction (Verified 09/24/18 01:07) Other metformin Adverse Reaction (Verified 09/24/18 01:13) Diarrhea Home Medications: Ambulatory Orders Medication Instructions Recorded Aspirin E.C. [Ecotrin] 81 mg PO DAILY@0800 04/30/17 Carvedilol [Coreg (Beta Radha)] 12.5 mg PO BID 04/30/17 Clopidogrel Bisulfate [Clopidogrel] 75 mg PO DAILY 04/30/17 Insulin Detemir [Levemir] 40 unit SQ QHS 04/30/17 Insulin Detemir [Levemir] 60 unit SQ BREAKFAST 04/30/17 Insulin Lispro [Humalog] 30 unit SC BREAKFAST 04/30/17 Insulin Lispro [Humalog] 30 unit SC LUNCH 04/30/17 Insulin Lispro [Humalog] 33 unit SC DINNER 04/30/17 Lisinopril [Zestril] 5 mg PO DAILY 04/30/17 Melatonin 3 mg PO QHS 04/30/17 Oxybutynin [Ditropan] 5 mg PO BID 04/30/17 Pantoprazole Sodium [Protonix] 40 mg PO DAILY 04/30/17 Pravastatin [Pravachol] 40 mg PO QHS 04/30/17 Pregabalin [Lyrica] 75 mg PO BID 04/30/17 Terazosin HCl 2 mg PO QHS 04/30/17 Trazodone HCl 50 mg PO QHS 04/30/17 buPROPion tablets [Wellbutrin 75 mg PO DAILY 04/30/17 tablets] Nitroglycerin [Nitrostat] 0.4 mg SUBLINGUAL Q5M PRN tablet 09/28/17 Ferrous Sulfate 325 mg PO DAILY 04/25/18 Acetaminophen 1,000 mg PO TID 09/24/18 Albuterol IH (ProAir) [Proair Hfa] 2 puff INHALATION Q4H PRN PRN 09/24/18 Benzonatate [Tessalon Perle] 100 mg PO TID 09/24/18 [id number] Capsule 460 mg PO DAILY 09/24/18 Fluoxetine HCl 40 mg PO DAILY 09/24/18 Fluticasone/Salmeterol [Advair 1 puff INHALATION BID 09/24/18 100-50 Diskus] Isosorbide Mononitrate [Isosorbide 30 mg PO DAILY 09/24/18 Mononitrate ER] Magnesium Oxide [Mag-Ox 400] 400 mg PO DAILY 09/24/18 Nystatin 1 applic TOPICAL BID 09/24/18 Lipase/Protease/Amylase [Creon Dr 1 day PO TID 09/26/18 12,000 Units Capsule] Surgical History: - - Cardiac stents x5 Lives: With Family Smoking Status: Current every day smoker Alcohol: None Drugs: None - *Family History Maternal History Items: Heart Disease Review of Systems Constitutional: Reports: - - complete ROS negative except as documented in HPI Patient Problems: Active and Suspected Problems Sepsis (Acute) UTI (urinary tract infection) (Acute) Mental status alteration (Acute) - Physical Exam General: - - awake, AoAx3 HEENT: Normocephalic Neck: Supple Lungs: Normal air movement Cardiovascular: Normal S1, Normal S2 Abdomen: Bowel Sounds Present Extremities: No cyanosis Neurological: - - consious, awake, no confusion at present, CN 2-12 grossly intact, power 5/5 all 4 extremities, no sensory loss, no cerebellar signs, Reflexes + B/L B/S/T/K/A, gait deferred Psych/Mental Status: Normal Affect Vital Signs Temp Pulse Resp BP Pulse Ox 98.3 F 105 H 16 140/60 H 95 09/28/18 11:20 09/28/18 11:20 09/28/18 11:20 09/28/18 11:20 09/28/18 11:20 Oxygen Flow Rate (L/min) 1 Oxygen Delivery Method Room Air Weight: 103.9 kg Body Mass Index (BMI) 34.8 Finger Stick Blood Glucose 224 Intake and Output for Last 24 Hours 09/26/18 09/27/18 09/28/18 23:59 23:59 23:59 Intake Total 1666 / 1666 990 / 990 0 / 0 Output Total 602 / 602 Balance 1064 / 1064 990 / 990 0 / 0 Microbiology Past 72 Hours 09/26/18 12:15 Blood Culture - Preliminary Blood Culture (Wb) - Anticubital Right No growth in 48 hours. 09/24/18 15:36 Blood Culture - Preliminary Blood Culture (Wb) - Right Hand Presumptive E. coli 09/24/18 15:44 Blood Culture - Preliminary Blood Culture (Wb) - Left Hand Presumptive E. coli 09/24/18 01:25 Blood Culture - Final Blood Culture (Wb) - Anticubital Left Presumptive E. coli 09/24/18 01:10 Blood Culture - Final Blood Culture (Wb) - Right Forearm Escherichia coli 09/24/18 01:50 Urine Culture - Final Urine Catheter - Catheter Presumptive E. coli Laboratory Tests Past 24 Hrs 09/27/18 09/27/18 09/27/18 17:48 17:56 17:56 WBC 6.2 RBC 4.47 Hgb 11.6 L Hct 36.6 L MCV 81.9 MCH 26.0 L MCHC 31.7 L RDW 13.5 RDW Differential 40.7 Plt Count 152 MPV 9.7 Immature Gran % (Auto) 0.200 Neut % (Auto) 61.4 Lymph % (Auto) 28.0 [place] % (Auto) 8.8 Eos % (Auto) 1.1 Baso % (Auto) 0.5 Absolute Neuts (auto) 3.8 Absolute Lymphs (auto) 1.73 Total Counted Not Reportable Specimen Type ART Sample Site L Radial pH 7.42 Bicarbonate Actual 25.2 POC Total CO2 26 Base Excess 1 O2 Saturation 95 ABG pCO2 38.7 ABG pO2 72 L Derrick Test NA O2 Delivery Device Room Air Blood Gas Notified Whom [facility] Blood Gas Notified Time 1747 Sodium Potassium Chloride Carbon Dioxide Anion Gap BUN Creatinine Estim Creat Clear Calc Est GFR (MDRD) Af Amer Est GFR (MDRD) Non-Af BUN/Creatinine Ratio Glucose Calcium Magnesium Total Bilirubin AST ALT Alkaline Phosphatase Total Creatine Kinase Troponin I B-Natriuretic Peptide 110.0 H Total Protein Albumin Globulin Albumin/Globulin Ratio 09/27/18 09/28/18 09/28/18 18:05 08:38 08:38 WBC 7.7 RBC 4.95 Hgb 12.7 Hct 40.8 MCV 82.4 MCH 25.7 L MCHC 31.1 L RDW 13.6 RDW Differential 41.1 Plt Count 190 MPV 9.7 Immature Gran % (Auto) 0.300 Neut % (Auto) 70.8 H Lymph % (Auto) 19.2 [place] % (Auto) 8.1 Eos % (Auto) 0.8 Baso % (Auto) 0.8 Absolute Neuts (auto) 5.5 Absolute Lymphs (auto) 1.48 Total Counted Not Reportable Specimen Type Sample Site pH Bicarbonate Actual POC Total CO2 Base Excess O2 Saturation ABG pCO2 ABG pO2 Derrick Test O2 Delivery Device Blood Gas Notified Whom Blood Gas Notified Time Sodium 134 L 138 Potassium 3.8 3.8 Chloride 102 100 Carbon Dioxide 26.0 24.0 Anion Gap 6 14 BUN 14 16 Creatinine 1.08 H 1.14 H Estim Creat Clear Calc 46.80 44.34 Est GFR (MDRD) Af Amer 64 60 Est GFR (MDRD) Non-Af 53 L 50 L BUN/Creatinine Ratio 13.0 14.0 Glucose 291 H 358 H Calcium 8.8 9.4 Magnesium 1.6 Total Bilirubin 0.30 AST 14 L ALT 16 Alkaline Phosphatase 146 H Total Creatine Kinase 16 L Troponin I 0.034 B-Natriuretic Peptide Total Protein 6.6 Albumin 2.5 L Globulin 4.1 Albumin/Globulin Ratio 0.6 L POC Glucose 09/28/18 09/28/18 09/28/18 10:54 07:04 00:16 POC Glucose 318 H 349 H 279 H 09/27/18 09/27/1809/27/19 22:21 16:27 16:02 POC Glucose 312 H 401 H 410 H Assessment/Plan All Active Problems Sepsis (Acute) UTI (urinary tract infection) (Acute) Mental status alteration (Acute) Chest pain (Resolved) Bright red blood per rectum (Acute) UTI (urinary tract infection) (Resolved) The patient is a 73 year old F with PMH HTN, HLD, DM, CKD, CAD s/p stents, H/O DVT, chronic urinary incontinence admitted with confusion and fever. Patient was found to have UTI with E.Coli septicemia. Neurology consulted for mental status change. Per nurse taking care of the patient she could have waxing waning mental status change. At present she is at baseline, is awake and alert, denies any FLETCHER, dizziness, focal motor weakness, sensory loss, visual disturbances or speech disturbances. MRI brain done this morning (09/28/2018) reported nothing acute. Per patient she lives with her daughter, denies any frequent falls, does use rollator for ambulating, does not drive. She denies any witnessed seizures. Impression Likely metabolic/toxic encephalopathy UTI with Ecoli septicemia Plan -MRI brain nothing acute -Labs reviewed. UA LE-500, +2 bacteria, Urine culture- Ecoli and blood culture-Ecoli -Check ammonia level -On Ceftriaxone, ID following -Fall precautions -GI/DVT prophylaxis -Further medical management per hospitalist team and ID -Please call with questions if any -Thank you for allowing us to participate in patient's care and management Code Visit Inpatient E&M: [id number] Init Hosp L3
--- NOTE | 2018-09-28 13:46 | PCM.PN.ID ---
Patient Problems: Active and Suspected Problems Sepsis (Acute) UTI (urinary tract infection) (Acute) Mental status alteration (Acute) Subjective: Feeling ok, no fever, neuro following now, MRI done. - Physical Exam General: Alert, Cooperative, No apparent distress Lungs: Clear to auscultation, Normal air movement Cardiovascular: Regular rate, Regular Rhythm Abdomen: Soft, Non Tender, Non-Distended Skin: No rashes Vital Signs Temp Pulse Resp BP Pulse Ox 98.3 F 105 H 16 140/60 H 95 09/28/18 11:20 09/28/18 11:20 09/28/18 11:20 09/28/18 11:20 09/28/18 11:20 Oxygen Flow Rate (L/min) 1 Oxygen Delivery Method Room Air Weight: 103.9 kg Body Mass Index (BMI) 34.8 Finger Stick Blood Glucose 224 Intake and Output for Last 24 Hours 09/26/18 09/27/18 09/28/18 23:59 23:59 23:59 Intake Total 1666 / 1666 990 / 990 0 / 0 Output Total 602 / 602 Balance 1064 / 1064 990 / 990 0 / 0 Microbiology Past 72 Hours 09/26/18 12:15 Blood Culture - Preliminary Blood Culture (Wb) - Anticubital Right No growth in 48 hours. 09/24/18 15:36 Blood Culture - Preliminary Blood Culture (Wb) - Right Hand Presumptive E. coli 09/24/18 15:44 Blood Culture - Preliminary Blood Culture (Wb) - Left Hand Presumptive E. coli 09/24/18 01:25 Blood Culture - Final Blood Culture (Wb) - Anticubital Left Presumptive E. coli 09/24/18 01:10 Blood Culture - Final Blood Culture (Wb) - Right Forearm Escherichia coli 09/24/18 01:50 Urine Culture - Final Urine Catheter - Catheter Presumptive E. coli Laboratory Tests Past 24 Hrs 09/27/18 09/27/18 09/27/18 17:48 17:56 17:56 WBC 6.2 RBC 4.47 Hgb 11.6 L Hct 36.6 L MCV 81.9 MCH 26.0 L MCHC 31.7 L RDW 13.5 RDW Differential 40.7 Plt Count 152 MPV 9.7 Immature Gran % (Auto) 0.200 Neut % (Auto) 61.4 Lymph % (Auto) 28.0 [place] % (Auto) 8.8 Eos % (Auto) 1.1 Baso % (Auto) 0.5 Absolute Neuts (auto) 3.8 Absolute Lymphs (auto) 1.73 Total Counted Not Reportable Specimen Type ART Sample Site L Radial pH 7.42 Bicarbonate Actual 25.2 POC Total CO2 26 Base Excess 1 O2 Saturation 95 ABG pCO2 38.7 ABG pO2 72 L Derrick Test NA O2 Delivery Device Room Air Blood Gas Notified Whom [facility] Blood Gas Notified Time 1747 Sodium Potassium Chloride Carbon Dioxide Anion Gap BUN Creatinine Estim Creat Clear Calc Est GFR (MDRD) Af Amer Est GFR (MDRD) Non-Af BUN/Creatinine Ratio Glucose Calcium Magnesium Total Bilirubin AST ALT Alkaline Phosphatase Total Creatine Kinase Troponin I B-Natriuretic Peptide 110.0 H Total Protein Albumin Globulin Albumin/Globulin Ratio 09/27/18 09/28/18 09/28/18 18:05 08:38 08:38 WBC 7.7 RBC 4.95 Hgb 12.7 Hct 40.8 MCV 82.4 MCH 25.7 L MCHC 31.1 L RDW 13.6 RDW Differential 41.1 Plt Count 190 MPV 9.7 Immature Gran % (Auto) 0.300 Neut % (Auto) 70.8 H Lymph % (Auto) 19.2 [place] % (Auto) 8.1 Eos % (Auto) 0.8 Baso % (Auto) 0.8 Absolute Neuts (auto) 5.5 Absolute Lymphs (auto) 1.48 Total Counted Not Reportable Specimen Type Sample Site pH Bicarbonate Actual POC Total CO2 Base Excess O2 Saturation ABG pCO2 ABG pO2 Derrick Test O2 Delivery Device Blood Gas Notified Whom Blood Gas Notified Time Sodium 134 L 138 Potassium 3.8 3.8 Chloride 102 100 Carbon Dioxide 26.0 24.0 Anion Gap 6 14 BUN 14 16 Creatinine 1.08 H 1.14 H Estim Creat Clear Calc 46.80 44.34 Est GFR (MDRD) Af Amer 64 60 Est GFR (MDRD) Non-Af 53 L 50 L BUN/Creatinine Ratio 13.0 14.0 Glucose 291 H 358 H Calcium 8.8 9.4 Magnesium 1.6 Total Bilirubin 0.30 AST 14 L ALT 16 Alkaline Phosphatase 146 H Total Creatine Kinase 16 L Troponin I 0.034 B-Natriuretic Peptide Total Protein 6.6 Albumin 2.5 L Globulin 4.1 Albumin/Globulin Ratio 0.6 L POC Glucose 09/28/18 09/28/18 09/28/18 10:54 07:04 00:16 POC Glucose 318 H 349 H 279 H 09/27/18 09/27/18 09/27/18 22:21 16:27 16:02 POC Glucose 312 H 401 H 410 H Medical Necessity - Tobacco Use Smoking Status: Current every day smoker Route of nutrition/ use of supplements: [] Nutritional Intake: [] IV Site: [] Alvarez Catheter: [] - Assessment/Plan Antibiotics: [] Assessment/Plan: [] Active and Suspected Problems Sepsis (Acute) UTI (urinary tract infection) (Acute) sepsis due to ecoli bacteremia from urinary source - improving. Narrowed zosyn to ceftriaxone. Plan will be for home with po keflex 500mg tid for 7 more days. Will follow
[2018-09-28] MEDS: Benzonatate 100 MG Capsule PO (14:50)
[2018-09-28] MEDS: Insulin Lispro 100 UNIT/ML INSULN.PEN 15 UNIT SC (14:56)
--- NOTE | 2018-09-28 15:02 | CASEMGMT ---
Patient does not require a new pre-cert per [facility]. Ciera HARRIS MSW
[2018-09-28 15:06] LABS: Bedside Glucose 327 mg/dL (70-110)
[2018-09-28] MEDS: Insulin Lispro 100 UNIT/ML INSULN.PEN SC (15:55)
[2018-09-28] MEDS: Pravastatin 40 MG Tablet PO (21:38)
[2018-09-28 22:45] LABS: Bedside Glucose 276 mg/dL (70-110)
[2018-09-29] VITALS (7 sets, daily range): BP systolic 139–152; BP diastolic 56–78; PULSE 91–110; RESP 16–18; TEMP 36.2–36.6; O2SAT 91–96
[2018-09-29] MEDS: Ondansetron 4 MG/2 ML Vial IV (02:45)
[2018-09-29] MEDS: 0.9% NaCl Peripheral Flush Adult/Peds IV (02:45)
[2018-09-29 06:09] LABS: Anion Gap 12 (5-15); BUN 15 mg/dL (7-18); BUN/Creat Ratio 14.2 RATIO (10-20); Calcium,Total 8.9 mg/dL (8.5-10.1); Chloride 101 mmol/L (98-107); Creatinine, Serum 1.06 mg/dL (0.55-1.02); EST Glomerular Filtration Rate 54 mL/min (>60); Est Glom Filt Rate - Afr Amer 65 mL/min (>60); Estimated Creatinine Clearance 47.68 ml/min; Glucose 308 mg/dL (74-106); Potassium 3.5 mmol/L (3.5-5.1); Sodium Level 139 mmol/L (136-145)
[2018-09-29 06:17] LABS: Absolute Lymphocyte Count 2.06 X10^3/ul (0.83-4.51); Absolute Neutrophil Count 5.5 X10^3/uL (2.0-7.7); Basophil# 0.09 X10^3/uL; Eosinophil# 0.08 X10^3/uL; Eosinophils% 0.9 % (0-5); Hematocrit 39.4 % (37-47); Hemoglobin 12.5 g/dl (12.0-15.0); Lymphocyte # 2.06 X10^3/ul (4.0); Lymphocyte % 23.5 % (19-41); Mean Corp Hgb Conc 31.7 g/gl (32-36); Mean Corpuscular Hgb 26.3 pg (27.0-32.0); Mean Corpuscular Volume 82.8 fL (81-99); Mean Platelet Vol. 10.1 fl (6.2-12.0); Monocyte# 0.92 X10^3/uL; Monocyte% 10.5 % (0-10); Neutrophil # 5.51 X10^3/uL (2.7-7.7); Neutrophil % 62.8 % (47-70); Platelet Count 241 K/mm3 (150-450); RBC Distribution Width CV 13.8 % (11.6-14.6); RBC Distribution Width SD 40.7 fl (35.1-43.9); Red Blood Count 4.76 M/mm3 (4.2-5.4); White Blood Count 8.8 K/mm3 (4.4-11.0)
[2018-09-29 06:25] LABS: Differential Indicated SCAN CRITERIA MET; POSITIVE COUNT NO; POSITIVE DIFFERENTIAL NO; POSITIVE MORPHOLOGY YES
[2018-09-29 07:06] LABS: Bedside Glucose 331 mg/dL (70-110)
[2018-09-29] MEDS: Albuterol 2.5 MG/3 ML VIAL.NEB. INHALATION ×2 (07:41→13:45)
[2018-09-29] MEDS: Budesonide Respules 0.5 MG/2 ML AMPUL.NEB. INHALATION (07:42)
[2018-09-29] MEDS: Aspirin E.C. 81 MG Tablet PO (08:57)
[2018-09-29] MEDS: Insulin Lispro 100 UNIT/ML INSULN.PEN SQ ×3 (08:59→16:49)
[2018-09-29] MEDS: Insulin Lispro 100 UNIT/ML INSULN.PEN 20 UNIT SC ×3 (08:59→16:48)
--- NOTE | 2018-09-29 10:19 | PN.ID_ITS ---
Patient Problems: Active and Suspected Problems Sepsis (Acute) UTI (urinary tract infection) (Acute) Mental status alteration (Acute) Subjective: Feeling better. Diarrhea at baseline, chronic. 2 episodes yesterday. No fever, no abd pain. - Physical Exam General: Alert, Cooperative, No apparent distress Lungs: Clear to auscultation, Normal air movement Cardiovascular: Regular rate, Regular Rhythm Abdomen: Soft, Non Tender, Non-Distended Skin: No rashes - no new rash Vital Signs Temp Pulse Resp BP Pulse Ox 97.9 F 91 16 149/78 H 91 09/29/18 03:20 09/29/18 07:44 09/29/18 07:44 09/29/18 03:20 09/29/18 07:44 Oxygen Flow Rate (L/min) 1 Oxygen Delivery Method Room Air Weight: 103.9 kg Body Mass Index (BMI) 34.8 Finger Stick Blood Glucose 224 Intake and Output for Last 24 Hours 09/27/18 09/28/18 09/29/18 23:59 23:59 23:59 Intake Total 990 / 990 360 / 360 500 / 500 Balance 990 / 990 360 / 360 500 / 500 Microbiology Past 72 Hours 09/26/18 12:15 Blood Culture - Preliminary Blood Culture (Wb) - Anticubital Right No growth in 48 hours. 09/24/18 15:36 Blood Culture - Preliminary Blood Culture (Wb) - Right Hand Presumptive E. coli 09/24/18 15:44 Blood Culture - Preliminary Blood Culture (Wb) - Left Hand Presumptive E. coli 09/24/18 01:25 Blood Culture - Final Blood Culture (Wb) - Anticubital Left Presumptive E. coli 09/24/18 01:10 Blood Culture - Final Blood Culture (Wb) - Right Forearm Escherichia coli 09/24/18 01:50 Urine Culture - Final Urine Catheter - Catheter Presumptive E. coli Laboratory Tests Past 24 Hrs 09/29/18 09/29/18 05:30 05:30 WBC 8.8 RBC 4.76 Hgb 12.5 Hct 39.4 MCV 82.8 MCH 26.3 L MCHC 31.7 L RDW 13.8 RDW Differential 40.7 Plt Count 241 MPV 10.1 Immature Gran % (Auto) 1.300 H Neut % (Auto) 62.8 Lymph % (Auto) 23.5 [place] % (Auto) 10.5 H Eos % (Auto) 0.9 Baso % (Auto) 1.0 Absolute Neuts (auto) 5.5 Absolute Lymphs (auto) 2.06 Total Counted Not Reportable Sodium 139 Potassium 3.5 Chloride 101 Carbon Dioxide 26.0 Anion Gap 12 BUN 15 Creatinine 1.06 H Estim Creat Clear Calc 47.68 Est GFR (MDRD) Af Amer 65 Est GFR (MDRD) Non-Af 54 L BUN/Creatinine Ratio 14.2 Glucose 308 H Calcium 8.9 POC Glucose 09/29/18 09/28/18 09/28/18 06:58 21:36 14:54 POC Glucose 331 H 276 H 327 H 09/28/18 10:54 POC Glucose 318 H Medical Necessity - Tobacco Use Smoking Status: Current every day smoker Route of nutrition/ use of supplements: [] Nutritional Intake: [] IV Site: [] Alvarez Catheter: [] - Assessment/Plan Antibiotics: [] Assessment/Plan: [] Active and Suspected Problems Sepsis (Acute) UTI (urinary tract infection) (Acute) sepsis due to ecoli bacteremia from urinary source - improving. Will change ceftriaxone to keflex. Plan will be for home with po keflex 500mg tid for 6 more days. Will follow
--- NOTE | 2018-09-29 10:30 | DCINST_ITS ---
- Discharge Diagnoses Current Active Problems: Current Active and Chronic Problems Sepsis (Acute) UTI (urinary tract infection) (Acute) Mental status alteration (Acute) You will use the following diet at home:: Cardiac Discharge Activity: Return to Normal Activity, May Not Drive Weight Bearing Status: Weight bearing as tolerated Call your doctor if you observe: Fever of 101 or Higher, Change in Color, Inability to have a bowel movement, Shortness of breath, Swelling in the ankles, Chest pain Allergies/Adverse Reactions: Allergies donepezil [From Aricept] Adverse Reaction (Verified 09/24/18 01:07) Other meperidine [From Demerol] Adverse Reaction (Verified 09/24/18 01:07) Other metformin Adverse Reaction (Verified 09/24/18 01:13) Diarrhea Medications to take at Discharge Aspirin E.C. [Ecotrin] 81 mg PO DAILY@0800 04/30/17 Carvedilol [Coreg (Beta Radha)] 12.5 mg PO BID 04/30/17 Clopidogrel Bisulfate [Clopidogrel] 75 mg PO DAILY 04/30/17 Insulin Detemir [Levemir] 40 unit SQ QHS 04/30/17 Insulin Detemir [Levemir] 60 unit SQ BREAKFAST 04/30/17 Insulin Lispro [Humalog] 30 unit SC BREAKFAST 04/30/17 Insulin Lispro [Humalog] 30 unit SC LUNCH 04/30/17 Insulin Lispro [Humalog] 33 unit SC DINNER 04/30/17 Lisinopril [Zestril] 5 mg PO DAILY 04/30/17 Melatonin 3 mg PO QHS 04/30/17 Oxybutynin [Ditropan] 5 mg PO BID 04/30/17 Pantoprazole Sodium [Protonix] 40 mg PO DAILY 04/30/17 Pravastatin [Pravachol] 40 mg PO QHS 04/30/17 Pregabalin [Lyrica] 75 mg PO BID 04/30/17 Terazosin HCl 2 mg PO QHS 04/30/17 Trazodone HCl 50 mg PO QHS 04/30/17 buPROPion tablets [Wellbutrin tablets] 75 mg PO DAILY 04/30/17 Nitroglycerin [Nitrostat] 0.4 mg SUBLINGUAL Q5M PRN tablet 09/28/17 Ferrous Sulfate 325 mg PO DAILY 04/25/18 Acetaminophen 1,000 mg PO TID 09/24/18 Albuterol IH (ProAir) [Proair Hfa] 2 puff INHALATION Q4H PRN PRN 09/24/18 Benzonatate [Tessalon Perle] 100 mg PO TID 09/24/18 [email or web address] Capsule 460 mg PO DAILY 09/24/18 Fluoxetine HCl 40 mg PO DAILY 09/24/18 Fluticasone/Salmeterol [Advair 100-50 Diskus] 1 puff INHALATION BID 09/24/18 Isosorbide Mononitrate [Isosorbide Mononitrate ER] 30 mg PO DAILY 09/24/18 Magnesium Oxide [Mag-Ox 400] 400 mg PO DAILY 09/24/18 Nystatin 1 applic TOPICAL BID 09/24/18 Lipase/Protease/Amylase [Creon Dr 12,000 Units Capsule] 1 day PO TID 09/26/18 Primary Care Physician: Reggie Jerez MD [Primary Care Provider] - Please follow up with your Primary Care Physician in: IN 2 WEEK Test Results: Test results from this visit will be discussed in further detail at your follow- up appointment, if applicable. Please Follow Up With: Lauro Bernstein MD When: IN 2 WEEKS
--- NOTE | 2018-09-29 10:41 | PCM.TXEXTCAR ---
- Diet 09/28/18 14:27 Diet: Cardiac: Carb-Controlled Food consistency:: Mechanical Soft/Ground Liquid Consistency:: Regular/Thin Is pt able to select menu?: Yes - Routine Orders/Code Status Suppository Type: Dulcolax 10mg Suppository Frequency: Daily PRN Routine Lab Work: CBC, BMP, INR - Therapies Weight Bearing: Weight bearing as tolerated Extremity Affected:: Bilateral Lower Physical Therapy: Eval and Treat Occupational Therapy: Eval and Treat Speech Therapy: Eval and Treat - Allergies/Procedures Done in Hospital Allergies/Adverse Reactions: Allergies donepezil [From Aricept] Adverse Reaction (Verified 09/24/18 01:07) Other meperidine [From Demerol] Adverse Reaction (Verified 09/24/18 01:07) Other metformin Adverse Reaction (Verified 09/24/18 01:13) Diarrhea - Type of Care/Length of Stay Estimated LOS: Convalescent Care Less Than 30 days Type of Care Needed: Skilled Rehab Potential: Good Prognosis: Good - Additional Orders/Day of Discharge Day of Discharge: 09/29/18 - Dietary and Speech Recommendations Dietitian Recommendations/Changes: Rec diet change to 1800 calorie controlled, cardiac diet if safe for PO nutrition otherwise consider TF support if remains contraindicated for PO diet. Consult RD for TF rec as indicated. Will d/c herbie vail on medpass--NPO. - Follow Up Care Primary Care Physician: Reggie Jerez MD [Primary Care Provider] - Please follow up with your Primary Care Physician in: IN 2 WEEK Please Follow Up With: Lauro Bernstein MD When: IN 2 WEEKS
--- NOTE | 2018-09-29 10:43 | DS.PCM_ITS ---
Discharge Date and Diagnosis - Problem List Patient Problems: Active and Suspected Problems Sepsis (Acute) UTI (urinary tract infection) (Acute) Mental status alteration (Acute) Date of Admission: 09/24/18 Date of Discharge: 09/29/18 - Primary Discharge Diagnosis Active and Suspected Problems Sepsis (Acute) UTI (urinary tract infection) (Acute) Mental status alteration (Acute) - Secondary Discharge Diagnosis Chronic Problems CKD (chronic kidney disease) (Chronic) Obesity (Chronic) Dyslipidemia (Chronic) Carotid artery disorder (Chronic) CAD (coronary artery disease) (Chronic) Essential (primary) hypertension (Chronic) DM2 (diabetes mellitus, type 2) (Chronic) Hospital Course and Treatment Operations: None Summary of Care Provided: [] This is a 73-year-old female with past medical history of obesity, hypertension, type II DM, asthma/COPD, CAD status post stents, is being admitted with acute metabolic encephalopathy secondary to sepsis from gram-negative concha bacteremia secondary to UTI. Patient has history of recurrent UTI in the past. Patient had urinary tract symptoms positive of increased frequency, urgency, burning micturition but no hematuria. Patient has seen urologist long time ago about 10 years in [place]. Denies history of obstructive uropathy or lesion occluding stone, tumor or stricture. CT abdomen was negative for acute obstructive uropathy. 1. Acute change in mental status, most probably secondary to metabolic/toxic encephalopathy secondary to sepsis from UTI: Initially, patient was admitted to regular [facility] floor and then transferred to PCU on 09/27/2018 evening for acute change in mental status with lethargic, confusion and disorientation. Patient has been awake and alert for more than 36 hours. MRI brain Does not show acute change. Patient also had ABG And showed 7.42/30 9/72 on room air therefore no significant hypercarbia or hypoxia. hold Wellbutrin, Lyrica and trazodone. Neurology consult reviewed and appreciated. Fall precaution. Discharge medication reconciliation done. Wellbutrin low-dose, trazodone and Lyrica resumed. Prozac discontinued. 2. Gram-negative bacteremia/sepsis secondary to E. Coli UTI blood cultures x4 was positive of gram-negative concha, presented E. coli sensitive to cephalosporin. Antibiotic narrowed from Zosyn to Rocephin. Blood culture from 09/26 is negative for 48 hours. Patient is discharged on 6 more days of Keflex 500 mg 3 times daily to SNF. 3. Type II DM, blood sugars have been fluctuating, glucose 283. Accu-Chek before meals and at bedtime and cover with NovoLog sliding scale. Lantus is increased to 40 units subcu at bedtime daily. Humalog insulin also titrated. Insulin is further to be titrated as per the calorie intake and glucose checks. 4. Hypertension, blood pressure is elevated. On lisinopril 10 mg, carvedilol. Hydralazine 10 mg IV every 4 hourly as needed for systolic blood pressure more than 180 mmHg. home Lisinopril, carvedilol, Terazosin 5. Anxiety/depression, peripheral neuropathy: As mentioned above 6. Iron deficiency anemia, Hb is stable at 11.8, on iron 7. History of GI bleed, on PPI 8. Brooke intertrigo in abdominal wall folds,, on nystatin powder 9. EMETERIO on CKD stage 3, Cr remains the same, previous creatinine in April 2080 was 0.98 10.DVt PPx-Lovenox 40 mg subcu daily. Discontinue if platelet count drops less than 50,000 or hemoglobin less than 8 g% Discharge medication reconciliation done. Discharge follow-up instructions completed. Discharge process discussed with the patient and all questions were answered to patient's satisfaction. Patient is being transferred/discharged to SNF Total time spent, exact 35 minutes on discharge meds reconciliation, examination, review of imaging and blood test and discussion with the patient on follow-up instructions. Patient Problems: Active and Suspected Problems Sepsis (Acute) UTI (urinary tract infection) (Acute) Mental status alteration (Acute) Subjective: Patient had 2 times liquid diarrhea but she has chronic diarrhea for many years about 4-5 times daily with abdominal cramps and she thinks it is not different than usual diarrhea. I think she has irritable bowel syndrome?diarrhea type. I discussed with ID software developer consultant and we agreed his not typical for C. difficile. Otherwise patient is alert awake oriented x3. Patient is sitting in the chair. Denies any dysuria. - Physical Exam General: Alert, Oriented x3, Cooperative HEENT: Atraumatic, PERRLA, EOMI, Normocephalic Neck: Supple, No JVD, Negative Carotid Bruits Lungs: Clear to auscultation, No rhonchi, No wheeze, No rales, Diminished Cardiovascular: Regular rate, Regular Rhythm, Normal S1, Normal S2, No murmurs Abdomen: Bowel Sounds Present, Soft, Non Tender, Non-Distended, - - No guarding/rigidity. Extremities: Capillary Refill Less than 3 Seconds, Edema Skin: No rashes, No breakdown Musculoskeletal: No Tenderness to Palpation of Joints or Extremities, Arthritic Changes, Muscle Wasting Neurological: Cranial nerves II-XII grossly intact, Deep Tendon Reflexes 2+/4 and Symmetrical, Neuro grossly intact Psych/Mental Status: Normal Affect, Appropriate Vital Signs Temp Pulse Resp BP Pulse Ox 97.9 F 91 16 149/78 H 91 09/29/18 03:20 09/29/18 07:44 09/29/18 07:44 09/29/18 03:20 09/29/18 07:44 Oxygen Flow Rate (L/min) 1 Oxygen Delivery Method Room Air Weight: 229 lb 0.964 oz Body Mass Index (BMI) 34.8 Finger Stick Blood Glucose 224 Intake and Output for Last 24 Hours 09/27/18 09/28/18 09/29/18 23:59 23:59 23:59 Intake Total 990 / 990 360 / 360 500 / 500 Balance 990 / 990 360 / 360 500 / 500 Microbiology Past 72 Hours 09/26/18 12:15 Blood Culture - Preliminary Blood Culture (Wb) - Anticubital Right No growth in 48 hours. 09/24/18 15:36 Blood Culture - Preliminary Blood Culture (Wb) - Right Hand Presumptive E. coli 09/24/18 15:44 Blood Culture - Preliminary Blood Culture (Wb) - Left Hand Presumptive E. coli 09/24/18 01:25 Blood Culture - Final Blood Culture (Wb) - Anticubital Left Presumptive E. coli 09/24/18 01:10 Blood Culture - Final Blood Culture (Wb) - Right Forearm Escherichia coli 09/24/18 01:50 Urine Culture - Final Urine Catheter - Catheter Presumptive E. coli Laboratory Tests Past 24 Hrs 09/29/18 09/29/18 05:30 05:30 WBC 8.8 RBC 4.76 Hgb 12.5 Hct 39.4 MCV 82.8 MCH 26.3 L MCHC 31.7 L RDW 13.8 RDW Differential 40.7 Plt Count 241 MPV 10.1 Immature Gran % (Auto) 1.300 H Neut % (Auto) 62.8 Lymph % (Auto) 23.5 [place] % (Auto) 10.5 H Eos % (Auto) 0.9 Baso % (Auto) 1.0 Absolute Neuts (auto) 5.5 Absolute Lymphs (auto) 2.06 Total Counted Not Reportable Sodium 139 Potassium 3.5 Chloride 101 Carbon Dioxide 26.0 Anion Gap 12 BUN 15 Creatinine 1.06 H Estim Creat Clear Calc 47.68 Est GFR (MDRD) Af Amer 65 Est GFR (MDRD) Non-Af 54 L BUN/Creatinine Ratio 14.2 Glucose 308 H Calcium 8.9 POC Glucose 09/29/18 09/28/18 09/28/18 06:58 21:36 14:54 POC Glucose 331 H 276 H 327 H 09/28/18 10:54 POC Glucose 318 H Home Medications: Medications to take at Discharge Aspirin E.C. [Ecotrin] 81 mg PO DAILY@0800 04/30/17 Carvedilol [Coreg (Beta Radha)] 12.5 mg PO BID 04/30/17 Clopidogrel Bisulfate [Clopidogrel] 75 mg PO DAILY 04/30/17 Insulin Detemir [Levemir] 60 unit SQ BREAKFAST 04/30/17 Insulin Lispro [Humalog] 30 unit SC BREAKFAST 04/30/17 Insulin Lispro [Humalog] 30 unit SC LUNCH 04/30/17 Insulin Lispro [Humalog] 33 unit SC DINNER 04/30/17 Melatonin 3 mg PO QHS 04/30/17 Oxybutynin [Ditropan] 5 mg PO BID 04/30/17 Pantoprazole Sodium [Protonix] 40 mg PO DAILY 04/30/17 Pravastatin [Pravachol] 40 mg PO QHS 04/30/17 Pregabalin [Lyrica] 75 mg PO BID 04/30/17 Terazosin HCl 2 mg PO QHS 04/30/17 Trazodone HCl 50 mg PO QHS 04/30/17 buPROPion tablets [Wellbutrin tablets] 75 mg PO DAILY 04/30/17 Nitroglycerin [Nitrostat] 0.4 mg SUBLINGUAL Q5M PRN tablet 09/28/17 Ferrous Sulfate 325 mg PO DAILY 04/25/18 Albuterol IH (ProAir) [Proair Hfa] 2 puff INHALATION Q4H PRN PRN 09/24/18 Florajen3 Capsule 460 mg PO DAILY 09/24/18 Fluticasone/Salmeterol [Advair 100-50 Diskus] 1 puff INHALATION BID 09/24/18 Isosorbide Mononitrate [Isosorbide Mononitrate ER] 30 mg PO DAILY 09/24/18 Magnesium Oxide [Mag-Ox 400] 400 mg PO DAILY 09/24/18 Nystatin 1 applic TOPICAL BID 09/24/18 Lipase/Protease/Amylase [Addie Abraham 12,000 Units Capsule] 1 day PO TID 09/26/18 Acetaminophen 500 mg PO TID #0 09/29/18 Albuterol Aerosols [Ventolin Aerosols] 2.5 mg INHALATION Q4H PRN PRN vial.neb. 09/29/18 Benzonatate [Tessalon Perle] 100 mg PO TID PRN PRN #0 09/29/18 Budesonide Aerosol [Pulmicort Respules] 0.5 mg INHALATION BID.RT ampul.neb. 09/29/18 Cephalexin [Keflex] 500 mg PO Q8 #18 cap 09/29/18 Insulin Detemir [Levemir] 40 unit SQ QHS #0 09/29/18 Insulin Glargine [Lantus SoloStar Pen] 10 units SC BREAKFAST pen 09/29/18 Insulin Lispro [Humalog KwikPen] 30 unit SC TIDAC insuln.pen 09/29/18 Lisinopril [Zestril] 20 mg PO DAILY tablet 09/29/18 lipase/protease/amylase [Addie ABRAHAM 12,000 Unit Capsule] 1 capsule PO TIDCM capsule 09/29/18 Following Prescrptions Were Given to Patient: Cephalexin [Keflex] 500 mg PO Q8 #18 cap Primary Care Physician: Reggie Jerez MD [Primary Care Provider] - Please follow up with your Primary Care Physician in: IN 2 WEEK Please Follow Up With: Lauro Bernstein MD When: IN 2 WEEKS Medical Necessity - Tobacco Use Smoking Status: Current every day smoker Meaningful Use Info Meaningful Use Diagnoses (Choose all that apply): None applicable Code Visit Inpatient E&M: 52879 [facility]
[2018-09-29] MEDS: Cephalexin 500 MG Capsule PO (10:55)
[2018-09-29] MEDS: Magnesium Oxide 400 MG Tablet PO (10:56)
[2018-09-29] MEDS: Ferrous Sulfate 325 MG Tablet PO (10:56)
[2018-09-29] MEDS: Isosorbide Mononitrate 30 MG Tablet PO (10:56)
[2018-09-29] MEDS: Pantoprazole Sodium 40 MG Tablet PO (10:57)
[2018-09-29] MEDS: Clopidogrel Bisulfate 75 MG Tablet PO (10:57)
[2018-09-29] MEDS: Lisinopril 10 MG Tablet PO (10:57)
[2018-09-29] MEDS: Nystatin Powder 15gm Bottle 1 APPLIC TOPICAL (10:58)
--- NOTE | 2018-09-29 11:01 | CASEMGMT ---
Addendum entered by Ciera Lowery 09/29/18 11:18: Received return call from Lulu from [facility]. Patient will be picked up at 3p via [facility] via wc. CANDIE notified RN, statistical secretary, and [facility]. SW will also notify patient. Ciera PRESCOTT Original Note: Patient is ready for discharge to [facility]. CANDIE faxed orders to [facility]. Completed convalescent on HENS. Called [facility] to arrange transport as patient has [facility]. She will call back when she has a rock picker time for patient. It will be between 1p and 4p via [employer] van. The confirmation number is [id number]. CANDIE called [facility] and let her know this information and that SW will call when a time has been assigned. Await return call from [facility] for transport time. Plan: d/c to [facility] under skilled level of care on a convalescent stay. Ciera PRESCOTT
--- NOTE | 2018-09-29 11:39 | CASEMGMT ---
CANDIE let patient know about d/c and pick-up. She asked CANDIE to call her daughter, Roíco and let her know about discharge. She also wanted to let her daughter know she needs clothes and her coat. CANDIE called patient's daughter and left her a voice mail with CANDIE's return number and the number to PCU. Plan: d/c to [facility] under skilled level of care on a convalescent stay. [facility] transported via van. Ciera HARRIS MSW
[2018-09-29] MEDS: Enoxaparin 40 MG/0.4 ML Syringe SC (12:50)
[2018-09-29 12:55] LABS: Bedside Glucose 354 mg/dL (70-110)
[2018-09-29] MEDS: Benzonatate 100 MG Capsule PO (13:23)
--- NOTE | 2018-09-29 15:53 | CASEMGMT ---
Pt's transportation is not here yet. SW called [facility] directly, the transport got delayed by about an hour due to a previous run. CANDIE let nurse discharge planner know as well as [facility]. RENO Stanley, BLADE ALIGNER
[2018-09-29 16:55] LABS: Bedside Glucose 203 mg/dL (70-110)
--- NOTE | 2018-09-29 17:56 | NURSING ---
1655 still no transfer for ecf. bs checked and pm insulin given with supper meds. pt in bed and waiting on supper. encouraged to eat before leaves.
--- NOTE | 2018-10-03 06:51 | ED.VISSUMM ---
- ER Visit Summary Date of Service: 10/03/18 This dictation was missing after the patient's initial visit and was dictated on October 03, 2018 at 6:52 AM. Chief Complaint: Altered mental status History of Present Illness: The patient is a 73 F who presents with altered mental status. Symptoms started today. The patient has been gradually more confused. Nothing seemed to bring this on or make it worse. Nothing has seemed to make it better. She has an associated fever. She is unable to provide much history. She has a history of chronic kidney disease, UTI, diabetes, hypertension, hyperlipidemia, and coronary disease. She is a smoker. Physical Examination: Hypertensive at 182/64 and febrile. Heart rate 118 and respiratory rate 24. 94% on nasal cannula. Patient is alert and oriented to person and place only. Cranial nerves grossly intact. Depressed mood and flat affect. Head and neck atraumatic. Eyes normal. Dry mucous membranes noted. Neck supple with no lymphadenopathy. No meningeal signs. Heart tachycardic but regular. Lung sounds diminished in all darnell. Abdomen is tender over the right side. Patient has a petechial rash on her left hand and wrist. Test Results: EKG showed sinus rhythm at a rate of 118. Platelets 141. Glucose 182 and creatinine 1.14. Alkaline phosphatase 137. INR 1.2. PTT normal. Urinalysis showed signs of infection and blood. Culture pending. Troponin normal. Lactate normal. PH 7.39. Influenza test negative. Chest x-ray showed bilateral atelectasis. CT brain showed no acute findings. CT abdomen showed an anterior hernia without obstruction. Emergency Department Course and Treatment: Patient was treated with fluids and placed on a monitor. EKG was done as above. Sepsis orders initiated. Fluid resuscitation ordered. Workup showed a UTI. There is no sign of septic shock. Cultures are pending. The patient was treated with Zosyn. On reevaluation, patient is stable. She was discussed with the hospitalist who will admit for further care. Treatment Plan: As above Disposition: Admission Impression: 1. UTI 2. Sepsis 3. Encephalopathy This note was generated with [employer] software. It may contain incorrect words, spelling, and punctuation that were not noted in review of the chart prior to signing ED Disposition - Plan for ED Patient: Disposition: Acute Care [facility]
== END 2018-09-29 17:18 | disposition skilled nursing facility (03) | DRG 871 ==
LOC: ED 01:35 → MS3 04:45 → PCU 09-27 18:53
PROVIDERS: Internal Medicine; Admitting Provider Hospitalist; Emergency Provider Emergency Medicine; Family Provider Family Medicine; PCP Family Medicine; Visit Provider Internal Medicine
DX: A41.51 Sepsis due to Escherichia coli [E. coli] (principal); G93.41 Metabolic encephalopathy; K86.1 Other chronic pancreatitis; N39.0 Urinary tract infection, site not specified; N17.9 Acute kidney failure, unspecified; J44.9 Chronic obstructive pulmonary disease, unspecified; E11.42 Type 2 diabetes mellitus with diabetic polyneuropathy; B96.20 Unspecified Escherichia coli [E. coli] as the cause of diseases classified elsewhere; E66.9 Obesity, unspecified; L30.4 Erythema intertrigo; I25.10 Atherosclerotic heart disease of native coronary artery without angina pectoris; E78.5 Hyperlipidemia, unspecified; D50.9 Iron deficiency anemia, unspecified; R32 Unspecified urinary incontinence; K43.9 Ventral hernia without obstruction or gangrene; I12.9 Hypertensive chronic kidney disease with stage 1 through stage 4 chronic kidney disease, or unspecified chronic kidney disease; E11.22 Type 2 diabetes mellitus with diabetic chronic kidney disease; N18.3 Chronic kidney disease, stage 3 (moderate); F17.210 Nicotine dependence, cigarettes, uncomplicated; F41.9 Anxiety disorder, unspecified; F32.9 Major depressive disorder, single episode, unspecified; Z79.4 Long term (current) use of insulin; Z68.34 Body mass index [BMI] 34.0-34.9, adult; Z95.5 Presence of coronary angioplasty implant and graft; Z79.899 Other long term (current) drug therapy; Z87.440 Personal history of urinary (tract) infections; Z87.19 Personal history of other diseases of the digestive system
CPT/HCPCS: 36415; 36600; 51702; 70450; 70551; 71045; 74176; 80048; 80053; 81001; 82040; 82550; 82803; 82947; 82962; 83036; 83605; 83735; 83880; 84484; 85025; 85610; 85730; 87040; 87077; 87086; 87088; 87186; 87804; 92610; 93005; 94640; 97110; 97162; 97166; 97530; 97535; 99285; 99406; J7030; J7040; A4216; J0696; J1940; J2405

== ENCOUNTER 2019-06-15 17:41 | Emergency (ER) | payer MEDICARE, SELFPAY ==
[2018-09-24 05:11] VITALS: BMI 34.8
[2019-06-15 17:42] VITALS: BP 150/78; PULSE 73; RESP 18; TEMP 36.8; O2SAT 96; BMI 35.4
--- NOTE | 2019-06-15 18:38 | ED.DCSUM_ITS ---
History of Present Illness Chief Complaint: Nausea/Vomiting/Diarrhea Informant: Patient, Significant Other Onset: Days - Diarrhea started the past 3 to 4 days. Vomited once yesterday. Nauseous today. Context: Sudden Onset Timing: Continuous Quality: Sense of fullness Location: Abdomen Current Severity: Mild Maximum Severity: Moderate Worsened by: Attempt to eat or drink anything Relieved by: Nothing Associated Symptoms: Dry mouth, thirst, decreased urine output and orthostatic Narrative: Patient is 74-year-old woman with multiple medical problems who presents with increased diarrhea from baseline. She states she normally has 1-2 loose stools a day. She is now having 3-4. She denies blood or mucus. She had one episode of emesis yesterday. She denies emesis today. She denies hematemesis, no hematochezia. She denies dysuria, frequency, urgency or hematuria. States does not feel well. She appears pale. She does report being thirsty with dry mouth and lightheaded with standing. She reports decreased intake because she has no appetite and anytime she attempts to eat anything she feels more nauseous. She has not had anything to eat or drink in 24 hours. Prior similar symptoms: Yes Recent Illness/Hospitalization: No - Past Medical History (1) UTI (urinary tract infection) Status: Acute (2) CAD (coronary artery disease) Status: Chronic (3) CKD (chronic kidney disease) Status: Chronic (4) Carotid artery disorder Status: Chronic (5) DM2 (diabetes mellitus, type 2) Status: Chronic (6) Dyslipidemia Status: Chronic (7) Obesity Status: Chronic Past Medical History - Allergies and Home Meds Allergies/Adverse Reactions: Allergies donepezil [From Aricept] Adverse Reaction (Verified 06/15/19 17:42) Other meperidine [From Demerol] Adverse Reaction (Verified 06/15/19 17:42) Other metformin Adverse Reaction (Verified 06/15/19 17:42) Diarrhea Primary Care Physician: Reggie Jerez MD [Primary Care Provider] - Prior records reviewed: Yes Surgical History: - - Cardiac stents x5 Lives: Spouse/ Significant Other Smoking Status: Current every day smoker Alcohol: None Drugs: None - Family History Maternal Family History: Reports: Heart Disease Review of Systems General: Reports: Malaise. Denies: Chills, Fever, Subjective, Sweats Eyes: Denies: Visual changes - bilaterally, Diplopia Cardiovascular: Denies: Chest pain, Palpitations Respiratory: Denies: Dyspnea, Cough, Dyspnea on exertion Gastrointestinal: Reports: Abdominal pain, Nausea, Vomiting, Diarrhea. Denies: Melena, Hematochezia Genitourinary: Denies: Dysuria, Hematuria, Frequency Musculoskeletal: Denies: Myalgias, Arthralgias, Neck pain, Back pain, Swelling, Extremity Pain, -, - Neurological: Reports: Weakness. Denies: Headache, Parasthesia, Numbness, -, - Endocrine: Denies: Polyuria, Polydipsia Hematologic: Denies: Easy bruising, Easy bleeding Physical Exam Vital Signs/Narrative: Vital Signs Temp Pulse Resp BP Pulse Ox 06/15/19 17:42 98.2 F 73 18 150/78 H 96 Inital Vital Signs reviewed: Yes General: Well nourished, Well developed, - - Appears ill Head: Normocephalic, Atraumatic Eyes: Perrl, EOMI. Negative for: Pale conjunctiva, Scleral icterus ENT: No rhinorrhea, TM's clear, Dry mucous membranes Neck: Supple, Nontender, No lymphadenopathy, No JVD Cardiovascular: Regular rate, Regular rhythm, No murmurs, Normal S1, Normal S2 Respiratory: No distress, CTA bilaterally, Chest nontender Abdomen: Soft, Nontender, Nondistended, Hypoactive bowel sounds. Negative for: Hepatomegaly, Splenomegaly, Pulsatile mass, Ventral hernia, Inguinal hernia Rectal: Deferred Back: Nontender, Normal Inspection Extremities: Nontender, No edema Skin: No rash, No Trauma, Pallor. Negative for: Cyanosis, Diaphoresis, Jaundice Neurological: Alert, Oriented x3, Cranial nerves II-XII grossly intact, Normal Strength, Normal Sensation Psychological: Depressed Diagnostic/Tx/Re-eval Laboratory Results 06/15/19 06/15/19 18:50 18:50 WBC 9.9 RBC 4.70 Hgb 11.9 L Hct 39.3 MCV 83.6 MCH 25.3 L MCHC 30.3 L RDW Std Deviation 39.8 RDW Coeff of Rajan 13.1 Plt Count 209 MPV 10.4 Immature Gran % (Auto) 0.300 Neut % (Auto) 69.1 Lymph % (Auto) 21.6 [place] % (Auto) 5.8 Eos % (Auto) 2.9 Baso % (Auto) 0.3 Absolute Neuts (auto) 6.9 Absolute Lymphs (auto) 2.14 Nucleated RBC % 0 Sodium 138 Potassium 3.8 Chloride 106 Carbon Dioxide 24.0 Anion Gap 8 BUN 26 H Creatinine 1.16 H Estim Creat Clear Calc 36.74 Est GFR (MDRD) Af Amer 59 L Est GFR (MDRD) Non-Af 49 L BUN/Creatinine Ratio 22.4 H Glucose 275 H Calcium 9.0 CBC is remarkable for mild anemia. Basic metabolic panel is remarkable for cranial 1.16. Prior creatinine was 1.06. This is within lab error. BUN to creatinine ratio is greater than 20-1 consistent with dehydration. Patient has passed p.o. challenge. She reports she feels better after liter bolus. Her elevated blood sugar was treated with subcu insulin. - Medical Decision Making History of renal disease diabetes no p.o. intake for 24 hours with orthostatic symptoms will obtain basic metabolic panel to assess for acute kidney injury. 1 L of normal saline was ordered. Also assess blood sugar. ED Disposition - Plan for ED Patient: Disposition: Home or Assisted Living Diagnosis: Mild dehydration, Hyperglycemia due to type 2 diabetes mellitus, Chronic renal insufficiency, Diarrhea Instructions: DEHYDRATION (6y-Adult), Treating Diarrhea Referrals: Reggie Jerez MD [Primary Care Provider] - 3-5 Days if not improving
[2019-06-15] MEDS: Ondansetron 4 MG/2 ML Vial IV (18:50)
[2019-06-15] MEDS: 0.9% Normal Saline 1,000 ML 1000 ML IV (18:50)
[2019-06-15 18:57] LABS: Absolute Lymphocyte Count 2.14 X10^3/uL (0.83-4.51); Absolute Neutrophil Count 6.9 X10^3/uL (2.0-7.7); Basophil# 0.03 X10^3/uL; Basophil% 0.3 % (0-1); Eosinophil# 0.29 X10^3/uL; Eosinophils% 2.9 % (0-5); Hematocrit 39.3 % (37-47); Hemoglobin 11.9 g/dL (12.0-15.0); Lymphocyte # 2.14 X10^3/ul (4.0); Lymphocyte % 21.6 % (19-41); Mean Corp Hgb Conc 30.3 g/dL (32-36); Mean Corpuscular Hgb 25.3 pg (27.0-32.0); Mean Corpuscular Volume 83.6 fL (81-99); Mean Platelet Vol. 10.4 fl (6.2-12.0); Monocyte# 0.58 X10^3/uL; Monocyte% 5.8 % (0-10); NRBC Flagged by Analyzer 0 % (0-5); Neutrophil # 6.86 X10^3/uL (2.7-7.7); Neutrophil % 69.1 % (47-70); Platelet Count 209 K/mm3 (150-450); RBC Distribution Width CV 13.1 % (11.6-14.6); RBC Distribution Width SD 39.8 fl (35.1-43.9); White Blood Count 9.9 K/mm3 (4.4-11.0)
[2019-06-15 19:09] LABS: Anion Gap 8 (5-15); BUN 26 mg/dL (7-18); BUN/Creat Ratio 22.4 RATIO (10-20); Chloride 106 mmol/L (98-107); Creatinine, Serum 1.16 mg/dL (0.55-1.02); EST Glomerular Filtration Rate 49 mL/min (>60); Est Glom Filt Rate - Afr Amer 59 mL/min (>60); Estimated Creatinine Clearance 36.74 ml/min; Glucose 275 mg/dL (74-106); Potassium 3.8 mmol/L (3.5-5.1); Sodium Level 138 mmol/L (136-145)
[2019-06-15] MEDS: Insulin Lispro 100 UNIT/ML INSULN.PEN SC (19:38)
[2019-06-15 19:42] VITALS: BP 136/44; PULSE 67; RESP 16; TEMP 36.8; O2SAT 94
--- NOTE | 2019-06-15 20:15 | ED.VISSUMM ---
- ER Visit Summary Date of Service: 06/15/19 Chief Complaint: [] History of Present Illness: The patient is a 74 F [] Physical Examination: [] Test Results: [] Emergency Department Course and Treatment: [] Treatment Plan: [] Disposition: [] Impression: [] This note was generated with [employer] dictation software. It may contain incorrect words, spelling, and punctuation that were not noted in review of the chart prior to signing ED Disposition - Plan for ED Patient: Disposition: Home or Assisted Living Diagnosis: Mild dehydration, Hyperglycemia due to type 2 diabetes mellitus, Chronic renal insufficiency, Diarrhea Instructions: Treating Diarrhea, DEHYDRATION (6y-Adult) Prescriptions: Ondansetron [Zofran Odt] 4 mg PO Q8H PRN PRN #5 tab PRN Reason: Nausea Prescription Printed Referrals: Reggie Jerez MD [Primary Care Provider] - 3-5 Days if not improving
[2019-06-15 20:18] VITALS: BP 136/44; PULSE 67; RESP 16; TEMP 36.8; O2SAT 94
[2019-06-15 20:31] LABS: Bedside Glucose 219 mg/dL (70-110)
== END 2019-06-15 20:29 | disposition home or self-care (01) ==
PROVIDERS: Emergency Provider Emergency Medicine; Family Provider Family Medicine; PCP Family Medicine
DX: E86.0 Dehydration (principal); E11.65 Type 2 diabetes mellitus with hyperglycemia; E11.22 Type 2 diabetes mellitus with diabetic chronic kidney disease; N18.9 Chronic kidney disease, unspecified; R19.7 Diarrhea, unspecified; E66.9 Obesity, unspecified; E78.5 Hyperlipidemia, unspecified; I25.10 Atherosclerotic heart disease of native coronary artery without angina pectoris; F17.200 Nicotine dependence, unspecified, uncomplicated; Z82.49 Family history of ischemic heart disease and other diseases of the circulatory system; Z88.5 Allergy status to narcotic agent; Z95.5 Presence of coronary angioplasty implant and graft
CPT/HCPCS: 80048; 82962; 85025; 99283; J7030; J2405